=== PATIENT | female | born 1985 | race Caucasian/White ===

== ENCOUNTER → 2018-03-13 14:00 | Outpatient (CLI) | payer MEDICAID, SELFPAY ==
[2018-03-19 14:35] LABS: HPV APTIMA, High Risk Positive (Negative)
== END ==
PROVIDERS: Visit Provider Obstetrics & Gynecology
DX: Z12.4 Encounter for screening for malignant neoplasm of cervix (principal)
CPT/HCPCS: 88175; G0145

== ENCOUNTER → 2018-04-02 17:08 | Outpatient (CLI) | payer MEDICAID, SELFPAY ==
--- NOTE | 2018-04-02 | IMM_PTH ---
PATIENT: LEWIS AVILA LOC: [facility] U#:[id number] AGE/SX: 40/F ROOM: RE04/02/[address]: Dr. Cassidy Dow MD : 1985 BED: DIS: SPEC #: [id number] RECD: 04/06/18 10:15 STATUS: MEGHA RELis #: [id number] SIM: 04/02/18 00:[address]: Cassidy Zhao DEPT: IMMUNOHISTOCHEMISTRY RECD BY: Fang Gunn Tissues: A - Uterine cervix, NOS B - Uterine cervix, NOS Procedures: P53 (initial) p16 (initial) KI-67 (add) PHYSICIAN & [place] [address] SPECIMEN INFORMATION: Tissue Source: A ? Cervical biopsy at 5 o?clock, B ? Cervical biopsy at 10 o?clock Clinical Info: ASCUS, positive HPV Specimen Number: [id number] A & B CPT code: 21959 x2, 98191 x3 METHODOLOGY: Deparaffinized sections of prefer/formalin-fixed tissue or PAP/DQ stained slides are incubated with monoclonal/polyclonal antibodies/oligonucleotide probes. Localization is made via biotin free immunoperoxidase method. Appropriate controls are performed and reacted as expected. Results on target cell population are indicated in the following table: RESULTS: ANTIBODY / CLONE RESULT Block A P16 (E6H4) negative * Ki-67 (30-9) negative Block B P16 (E6H4) negative * Ki-67 (30-9) negative P53 (DO-7) negative *?Endocervical epithelium shows positive staining. These tests were developed and their performance characteristics determined by [facility]. They may not have been cleared or approved by the U.S. Food and Drug Administration. The FDA has determined that such clearance or approval is not necessary. INTERPRETATION: A. Cervix, 5 o?clock, biopsy: Focal changes suggestive for HPV cytopathic effects. B. Cervix, 10 o?clock, biopsy: Focal changes consistent with HPV cytopathic effects. SJ:cyndee 04/07/18 Case has been reviewed in consultation with Dr. Fuentes who concurs with the above diagnosis. IDC:AM
--- NOTE | 2018-04-02 | CER_PTH ---
PATIENT: LEWIS AVILA [facility] U[facility][id number] AGE/SX: 40/F ROOM: RE04/02/[address]: Dr. Cassidy Dow MD : 1985 BED: DIS: SPEC #: [id number] RECD: 04/02/18 17:04 STATUS: MEGHA YESI #: [id number] SIM: 04/02/18 00:[address]: Cassidy Zhao DEPT: SURGICAL PATHOLOGY RECD BY: Aleksandar Acosta ENTERED: 04/03/18 07:50 SP TYPE: CERV OTHR DR: Dr. Don Gotti MD Tissues: A - Uterine cervix, NOS B - Uterine cervix, NOS C - Uterine cervix, NOS D - Endocervical Procedures: Surgery Specimen Level IV HEADER OPERATION: Colposcopy PRE-OP DIAGNOSIS: ASCUS, positive HPV pap 03/13/18, LMP IUD TISSUE SUBMITTED: A ? Cervical biopsy 5 o?clock, B - Cervical biopsy 10 o?clock, C - Cervical biopsy 1?o?clock, D - ECC MICROSCOPIC DIAGNOSIS A. Cervix, 5 o?clock, biopsy: Focal changes suggestive of HPV cytopathic effects. Chronic inflammation. See comment. B. Cervix, 10 o?clock, biopsy: Focal changes consistent with HPV cytopathic effects. Focal glandular atypia, favor reactive. Acute and chronic inflammation. See comment. C. Cervix, 1 o?clock, biopsy: A few desquamative benign ecto- and endocervical epithelial cells and mucous, negative for dysplasia. D. ECC: Scant benign endocervical epithelium and mucous, no pathologic diagnosis. SJ:cyndee 04/06/18 COMMENT A & B. Results of immunohistochemistry ([id number]) for surrogate HPV marker (p16) will be reported separately. Case has been reviewed in consultation with Dr. Fuentes who concurs with the above diagnosis. IDC:AM MICROSCOPIC DESCRIPTION Slides are reviewed. GROSS DESCRIPTION A - Received in fixative is one container labeled with the patient's name and designated 5 o'clock. The specimen consists of multiple minute fragments of light mantilla soft tissue that in aggregate measure 0.2 x 0.1 x <0.1 cm. The specimen is totally submitted in one cassette. B - Received in fixative is one container labeled with the patient's name and designated 10 o'clock. The specimen consists of one irregular fragment of light mantilla soft tissue that measures 0.2 x 0.2 x 0.1 cm. The specimen is totally submitted in one cassette. C - Received in fixative is one container labeled with the patient's name and designated 1 o'clock. The specimen consists of one irregular fragment of light mantilla soft tissue that measures 0.1 x 0.1 x 0.1 cm. The specimen is totally submitted in one cassette. D - Received in fixative is one container labeled with the patient's name and designated ECC. The specimen consists of multiple minute fragments of light mantilla soft tissue that in aggregate measure 0.5 x 0.2 x <0.1 cm. The specimen is filtered and totally submitted in one cassette. / AM:cyndee 04/03/18 TC:5 CPT: 03712 x4
== END ==
PROVIDERS: Visit Provider Obstetrics & Gynecology
DX: R87.610 Atypical squamous cells of undetermined significance on cytologic smear of cervix (ASC-US) (principal); R87.810 Cervical high risk human papillomavirus (HPV) DNA test positive
CPT/HCPCS: 88305; 88341; 88342

== ENCOUNTER 2018-04-23 08:21 | Emergency (ER) | payer MEDICAID, SELFPAY ==
[2018-04-23 08:23] VITALS: BP 145/81; PULSE 82; RESP 17; TEMP 36.4; O2SAT 98; BMI 23.1
--- NOTE | 2018-04-23 09:07 | CT_ITS ---
STUDY: CT ABDOMEN AND PELVIS WITH CONTRAST REASON FOR EXAM: Female, 33 years old. Abdominal pain with nausea vomiting and diarrhea. RADIATION DOSAGE (If Supplied By Facility): CTDIvol = ( 11.08 ) mGy, DLP = ( 574.82 ) mGycm TECHNIQUE: Transaxial images were obtained from the dome of the diaphragm to the symphysis pubis without oral contrast. 100 ml of Isovue 300 contrast was administered. Sagittal and coronal images were reconstructed. Individualized dose optimization techniques were used for this CT. COMPARISON: None. FINDINGS: The visualized lung bases are unremarkable. The visualized portions of the heart are within normal limits. Normal liver. The patient is status post cholecystectomy. Normal spleen. Normal pancreas. Normal bilateral adrenal glands. Normal right kidney. Normal left kidney. There is a small hiatal hernia. Normal small intestine. Normal colon. The appendix is visualized and appears normal. Normal abdominal aorta. Normal inferior vena cava. Normal retroperitoneum. Normal urinary bladder. IUD is seen within the uterus. The uterus is retroverted. Minimal amount of free fluid in the cul-de-sac. Follicles are seen in the right ovary. Normal abdominal wall. Normal osseous structures. CT/Abdomen/Pelvis W IV Cont ONLY IMPRESSION: Minimal amount of free fluid is seen in the cul-de-sac. Follicles are seen in the right ovary. Electronically Signed: Darian Vallejo MD at 10:56 EDT Tel [phone], Service support ,
[2018-04-23] MEDS: Ondansetron 4 MG/2 ML Vial IV (09:14)
[2018-04-23 09:21] LABS: Mucous, Urine 0 SEEN /hpf (<or=2+); Red Blood Cells-Urine 0 SEEN /hpf (0-5)
[2018-04-23 09:23] LABS: Color, Urine Yellow (Yellow); Glucose, Dipstick Normal (Normal); Ketone-Dipstick Negative (Negative); Leukocyte Esterase-Dipstick 25 /ul (Negative); Nitrite-Dipstick Negative (Negative); Occult Blood-Urine Negative /ul (Negative); Protein-Dipstick Negative (Negative); Urine Bilirubin Dipstick Negative (Negative); Urine Clarity Clear (Clear); Urine Urobilinogen Normal (Normal)
[2018-04-23 09:26] LABS: Absolute Lymphocyte Count 1.26 X10^3/ul (0.83-4.51); Absolute Neutrophil Count 8.4 X10^3/uL (2.0-7.7); Basophil# 0.01 X10^3/uL; Basophil% 0.1 % (0-1); Eosinophil# 0.17 X10^3/uL; Eosinophils% 1.6 % (0-5); Hemoglobin 14.1 g/dl (12.0-15.0); Lymphocyte # 1.26 X10^3/ul (4.0); Lymphocyte % 12.1 % (19-41); Mean Corp Hgb Conc 32.8 g/gl (32-36); Mean Corpuscular Hgb 27.9 pg (27.0-32.0); Mean Platelet Vol. 9.2 fl (6.2-12.0); Monocyte# 0.56 X10^3/uL; Monocyte% 5.4 % (0-10); Neutrophil # 8.37 X10^3/uL (2.7-7.7); Neutrophil % 80.4 % (47-70); Platelet Count 178 K/mm3 (150-450); RBC Distribution Width CV 13.7 % (11.6-14.6); Red Blood Count 5.06 M/mm3 (4.2-5.4); White Blood Count 10.4 K/mm3 (4.4-11.0)
[2018-04-23 09:30] LABS: Bacteria RARE /hpf (None Seen); Squamous Epithelial Cells - UA 5-10 SEEN /hpf (5-10); White Blood Cells 0-5 SEEN /hpf (0-5)
[2018-04-23 09:36] LABS: POSITIVE COUNT NO; POSITIVE DIFFERENTIAL NO; POSITIVE MORPHOLOGY NO
[2018-04-23 09:40] LABS: ALB/GLOB Ratio 1.1 RATIO (0.9-2.4); AST(SGOT) 17 U/L (15-37); Alanine Aminotransfer ALT/SGPT 22 U/L (13-56); Alkaline Phosphatase 59 U/L (45-117); Anion Gap 6 (5-15); BUN 9 mg/dL (7-18); BUN/Creat Ratio 11.5 RATIO (10-20); Calcium,Total 8.7 mg/dL (8.5-10.1); Chloride 108 mmol/L (98-107); Creatinine, Serum 0.78 mg/dL (0.55-1.02); EST Glomerular Filtration Rate 91 mL/min (>60); Est Glom Filt Rate - Afr Amer 110 mL/min (>60); Estimated Creatinine Clearance 97.83 ml/min; Globulin 3.5 g/dL (2.2-4.2); Glucose 100 mg/dL (74-106); Lipase 154 U/L (73-393); Potassium 3.9 mmol/L (3.5-5.1); Protein, Total 7.5 g/dL (6.4-8.2); Sodium Level 140 mmol/L (136-145)
[2018-04-23 09:49] LABS: Pregnancy, Serum, hCG Quali. NEGATIVE Negative (0-9 Nonpreg)
[2018-04-23] MEDS: Dicyclomine 10 MG Capsule 20 MG PO (09:51)
--- NOTE | 2018-04-23 11:31 | ED.DCSUM_ITS ---
- ER Visit Summary Date of Service: 04/23/18 Chief Complaint: Abdominal pain History of Present Illness: The patient is a 33 F who woke this morning and had abdominal pain left upper quadrant and around 0400 hours. She continued not feel very well eventually had vomiting and diarrhea. She last vomited around 0700 hours and diarrhea about the same time. No fevers. She notes the pain is intermittent in the left upper quadrant. Physical Examination: Afebrile vital signs are stable Gen: Well-nourished well-developed Head: Normocephalic atraumatic Eyes: Perrl EOMI ENT: TMs clear no rhinorrhea moist mucous membranes Neck: Supple no lymphadenopathy no JVD nontender CVS: Regular rate rhythm no murmurs normal S1-S2 Respiratory: No distress clear to auscultation bilaterally chest nontender Abdomen: Soft mild tenderness to palpation left upper quadrant nondistended normal bowel sounds no masses Back: Nontender Extremity: Nontender no edema Skin: Normal color no rash Neuro: alert orientated ?3 CN II-XII intact normal strength sensation reflexes gait cerebellar Psych: Normal affect normal mood Test Results: CBC CMP urinalysis test were negative. CT the pelvis did not demonstrate anything acute other than a small amount of free fluid in the pelvis. Emergency Department Course and Treatment: Patient was given Zofran and Bentyl. She will be discharged home with instructions for the same as well as Imodium as needed. Return if worsening or concerns Impression: 1. Acute abdominal pain 2. Gastroenteritis This note was generated with [employer] dictation software. It may contain incorrect words, spelling, and punctuation that were not noted in review of the chart prior to signing ED Disposition - Plan for ED Patient: Disposition: Home or Assisted Living Chief Complaint: Abd Pain Instructions: ED Gastroenteritis Viral Prescriptions: Ondansetron [Zofran Odt] 4 mg PO Q8H PRN PRN #10 tab PRN Reason: Nausea Dicyclomine HCl [Bentyl] 20 mg PO TIDAC PRN #20 cap PRN Reason: abdominal pain Referrals: Don Gotti MD [Primary Care Provider] - 3-5 Days if not improving
[2018-04-23 12:17] VITALS: BP 138/68; PULSE 84; RESP 18; O2SAT 98
== END 2018-04-23 12:19 | disposition home or self-care (01) ==
PROVIDERS: Emergency Provider Emergency Medicine; Family Provider Family Medicine; PCP Family Medicine
DX: K52.9 Noninfective gastroenteritis and colitis, unspecified (principal); R10.12 Left upper quadrant pain
CPT/HCPCS: 74177; 80053; 81001; 83690; 84703; 85025; 96374; 99283; Q9967; A4216; J2405

== ENCOUNTER 2018-06-06 12:55 | Emergency (ER) | payer MEDICAID, SELFPAY ==
[2018-06-06 12:56] VITALS: BP 123/71; PULSE 101; RESP 18; TEMP 37; O2SAT 98; BMI 22.9
[2018-06-06] MEDS: Tetracaine 0.5% Ophthalmic Bottle 1 DRP LEFT EYE (13:52)
--- NOTE | 2018-06-06 13:58 | ED.VISSUMM ---
- ER Visit Summary Date of Service: 06/06/18 Chief Complaint: [Foreign body sensation left eye] History of Present Illness: The patient is a 33 F [presents the emergency department complaint of foreign body sensation to her left eye that she noticed this morning upon awakening. Patient states that her eye was tearing and she has a sensation like her something in her eye. Patient noticed a dark speck on the left cornea. She denies any trauma to her eye. She does not wear contacts. She denies any visual changes. Patient has had tearing.] Physical Examination: [HEENT-PERRLA, EOMI. Cranial nerves II through XII grossly intact. TMs clear. Mucous membranes moist. No adenopathy. Left eye-patient had tetracaine instilled in left eye. I was able to visualize a small punctate foreign body to the 3 o'clock position of the left cornea. Cardiovascular-regular rate and rhythm without murmur or ectopy Lungs-clear to auscultation, chest wall stable without crepitus or subcu emphysema Abdomen-normoactive bowel sounds, soft, nontender, no rebound or rigidity, no peritoneal signs. Extremities-intact ?4, normal range of motion, normal pulses, atraumatic] Test Results: [None indicated] Emergency Department Course and Treatment: [After instillation of tetracaine in the left eye using a moistened Q-tip I was able to easily remove the foreign body without difficulty. After removal I reevaluated the cornea and there is no remnant foreign body noted.] Treatment Plan: [Patient was given gentamicin ophthalmic drops] Disposition: [Discharged home in stable condition. Patient will be referred to ophthalmology for follow-up in 3-5 days] Impression: [Foreign body left cornea-removed] This note was generated with [employer] dictation software. It may contain incorrect words, spelling, and punctuation that were not noted in review of the chart prior to signing ED Disposition - Plan for ED Patient: Chief Complaint: Eye Problem Referrals: Don Gotti MD [Primary Care Provider] -
--- NOTE | 2018-06-06 14:00 | ED.DEP ---
ED Disposition - Plan for ED Patient: Chief Complaint: Eye Problem Instructions: ED Foreign Body Cornea Referrals: Don Gotti MD [Primary Care Provider] - Pete Orellana MD [STAFF PHYSICIAN] - 1-2 Days if not improving
[2018-06-06] MEDS: Gentamicin Sulfate 1 OPTH.BTL 2 DRP LEFT EYE (14:36)
== END 2018-06-06 14:44 | disposition home or self-care (01) ==
PROVIDERS: Emergency Provider Emergency Medicine; Family Provider Family Medicine; PCP Family Medicine
DX: T15.02XA Foreign body in cornea, left eye, initial encounter (principal)
CPT/HCPCS: 99282

== ENCOUNTER → 2019-06-28 | Outpatient (CLI) | payer MEDICAID, SELFPAY ==
[2019-07-27 15:26] LABS: HPV Reflexed? NOT INDICATED
== END | disposition home or self-care (01) ==
LOC: LABSPEC 17:01
PROVIDERS: Family Provider Family Medicine; PCP Family Medicine; Referring Provider Obstetrics & Gynecology; Visit Provider Obstetrics & Gynecology
DX: Z12.4 Encounter for screening for malignant neoplasm of cervix (principal)
CPT/HCPCS: 87624; 88175; G0145

== ENCOUNTER → 2019-06-29 | Outpatient (CLI) | payer MEDICAID, SELFPAY ==
[2019-06-29 11:43] LABS: Estradiol 113.3 pg/mL; Free T3 3.2 pg/mL (2.18-3.98); T4 Free Direct 1.06 ng/dL (0.76-1.46); Thyroid Stim Hormone (TSH) 1.62 uIU/mL (0.358-3.74)
[2019-07-05 14:44] LABS: Sex Hormone-binding Globulin 67.1
[2019-07-05 14:45] LABS: DHEA Sulfate 129.5
== END | disposition home or self-care (01) ==
LOC: WOBLAB 09:26
PROVIDERS: Visit Provider Obstetrics & Gynecology
DX: L65.9 Nonscarring hair loss, unspecified (principal); N92.6 Irregular menstruation, unspecified; R53.83 Other fatigue; Z13.89 Encounter for screening for other disorder
CPT/HCPCS: 36415; 82157; 82533; 82627; 82670; 84270; 84403; 84439; 84443; 84481; 82626

== ENCOUNTER → 2019-09-06 | Outpatient (CLI) | payer MEDICAID, SELFPAY ==
[2019-09-06 11:02] LABS: Estradiol 68.4 pg/mL
[2019-09-07 05:06] LABS: DHEA Sulfate 148.4 ug/dL (84.8-378.0)
[2019-09-07 09:58] LABS: Sex Hormone-binding Globulin 52.2 nmol/L (24.6-122.0)
== END | disposition home or self-care (01) ==
LOC: WOBLAB 09:32
PROVIDERS: Visit Provider Obstetrics & Gynecology
DX: L65.9 Nonscarring hair loss, unspecified (principal); L70.8 Other acne; R53.83 Other fatigue
CPT/HCPCS: 36415; 82306; 82533; 82627; 82670; 84270; 84403; 82626

== ENCOUNTER → 2019-09-17 08:52 | Outpatient (CLI) | payer MEDICAID, SELFPAY ==
[2019-09-17 09:58] LABS: Absolute Lymphocyte Count 1.59 X10^3/uL (0.83-4.51); Absolute Neutrophil Count 4.4 X10^3/uL (2.0-7.7); Basophil# 0.02 X10^3/uL; Basophil% 0.3 % (0-1); Eosinophil# 0.21 X10^3/uL; Eosinophils% 3.2 % (0-5); Hematocrit 43.4 % (37-47); Hemoglobin 14.1 g/dL (12.0-15.0); Lymphocyte # 1.59 X10^3/ul (4.0); Lymphocyte % 23.9 % (19-41); Mean Corp Hgb Conc 32.5 g/dL (32-36); Mean Corpuscular Volume 86.1 fL (81-99); Mean Platelet Vol. 9.6 fl (6.2-12.0); Monocyte# 0.35 X10^3/uL; Monocyte% 5.3 % (0-10); NRBC Flagged by Analyzer 0 % (0-5); Neutrophil # 4.44 X10^3/uL (2.7-7.7); Neutrophil % 66.8 % (47-70); Platelet Count 176 K/mm3 (150-450); RBC Distribution Width CV 13.2 % (11.6-14.6); Red Blood Count 5.04 M/mm3 (4.2-5.4); White Blood Count 6.6 K/mm3 (4.4-11.0)
[2019-09-17 10:39] LABS: Anion Gap 8 (5-15); BUN 13 mg/dL (7-18); BUN/Creat Ratio 16.5 RATIO (10-20); Calcium,Total 8.8 mg/dL (8.5-10.1); Chloride 108 mmol/L (98-107); Creatinine, Serum 0.79 mg/dL (0.55-1.02); EST Glomerular Filtration Rate 89 mL/min (>60); Est Glom Filt Rate - Afr Amer 108 mL/min (>60); Glucose 97 mg/dL (74-106); Potassium 3.5 mmol/L (3.5-5.1); Sodium Level 139 mmol/L (136-145)
== END ==
PROVIDERS: Family Provider Family Medicine; PCP Family Medicine; Referring Provider Family Medicine; Visit Provider Family Medicine
DX: R00.2 Palpitations (principal)
CPT/HCPCS: 36415; 80048; 85025

== ENCOUNTER → 2019-10-30 08:37 | Outpatient (CLI) | payer MEDICAID, SELFPAY ==
[2019-10-30 10:11] LABS: Estradiol 86.6 pg/mL
[2019-10-31 07:06] LABS: DHEA Sulfate 262.1 ug/dL (84.8-378.0)
[2019-11-01 09:54] LABS: Vitamin D,25 Hydroxy 31.1 ng/mL (29.95-100.01)
== END ==
PROVIDERS: Family Provider Family Medicine; PCP Family Medicine; Referring Provider Obstetrics & Gynecology; Visit Provider Obstetrics & Gynecology
DX: L70.8 Other acne (principal); L65.9 Nonscarring hair loss, unspecified; R53.83 Other fatigue
CPT/HCPCS: 36415; 82306; 82533; 82627; 82670; 84270; 84403; 82626

== ENCOUNTER → 2020-08-15 14:27 | Outpatient (CLI) | payer MEDICAID, SELFPAY ==
[2020-08-18 03:06] LABS: Chlamydia By Nucleic Acid AMP Negative (Negative)
[2020-08-18 06:34] LABS: Gonococcus By Nucleic Acid AMP Negative (Negative)
[2020-08-23 09:13] LABS: HPV APTIMA, High Risk Positive (Negative)
== END ==
PROVIDERS: PCP Family Medicine; Visit Provider Obstetrics & Gynecology
DX: Z12.4 Encounter for screening for malignant neoplasm of cervix (principal); Z11.3 Encounter for screening for infections with a predominantly sexual mode of transmission
CPT/HCPCS: 87491; 87591; 87624; 88175; G0145

== ENCOUNTER → 2020-09-05 13:17 | Outpatient (CLI) | payer MEDICAID, SELFPAY ==
--- NOTE | 2020-09-05 | IMM_PTH ---
PATIENT: LEWIS AVILA LOC: [facility] U#:[id number] AGE/SX: 40/F ROOM: RE09/05/[address]: Dr. Cassidy Dow MD : 1985 BED: DIS: SPEC #: [id number] RECD: 09/07/20 13:04 STATUS: MEGHA REQ #: [id number] SIM: 09/05/20 00:[address]: Cassidy Zhao DEPT: IMMUNOHISTOCHEMISTRY RECD BY: Fang Gunn ENTERED: 09/07/20 13:04 SP TYPE: IMMUNO OTHR DR: Dr. Don Gotti MD Tissues: A - Uterine cervix, NOS Procedures: p16 (initial) KI-67 (add) PHYSICIAN & INSTITUTION [place] [id number] SPECIMEN INFORMATION: Tissue Source: A - Cervix at 8 o'clock, biopsy Clinical Info: Atypical glandular cells, cervical HR HPV Specimen Number: [id number] CPT code: 81674, 46026 METHODOLOGY: Deparaffinized sections of prefer/formalin-fixed tissue or PAP/DQ stained slides are incubated with monoclonal/polyclonal antibodies/oligonucleotide probes. Localization is made via biotin free immunoperoxidase method. Appropriate controls are performed and reacted as expected. Results on target cell population are indicated in the following table: RESULTS: ANTIBODY / CLONE RESULT Block A P16 (E6H4) positive, rare Ki-67 (30-9) negative, low These tests were developed and their performance characteristics determined by [facility]. They may not have been cleared or approved by the U.S. Food and Drug Administration. The FDA has determined that such clearance or approval is not necessary. The above immunohistochemical/dualISH markers are ordered and reviewed by the Pathologist. INTERPRETATION: A. Cervix at 8 o'clock, biopsy: Focal HPV change suspected. AM:cyndee 09/08/20
--- NOTE | 2020-09-05 | CER_PTH ---
PATIENT: LEWIS AVILA LOC: [facility]#:[id number] AGE/SX: 40/F ROOM: RE09/05/[address]: Dr. Cassidy Dow MD : 1985 BED: DIS: SPEC #: [id number] RECD: 09/05/20 13:43 STATUS: MEGHA RELis #: [id number] SIM: 09/05/20 00:[address]: Cassidy Zhao DEPT: SURGICAL PATHOLOGY RECD BY: Saba Peterson ENTERED: 09/06/20 08:49 SP TYPE: CERV OTHR DR: Dr. Don Gotti MD Tissues: A - Uterine cervix, NOS B - Endocervical Procedures: Surgery Specimen Level IV HEADER OPERATION: Colposcopy, ECC PRE-OP DIAGNOSIS: Atypical glandular cells; cervical HR HPV TISSUE SUBMITTED: A - Cervical biopsy 8 o'clock, B - ECC MICROSCOPIC DIAGNOSIS A. Cervix, biopsy: Focal HPV change suspected. Squamous metaplasia and chronic inflammation. See comment. B. Endocervix, curettings: Strips of benign superficial endocervix. No evidence of dysplasia. AM:cyndee 09/07/20 COMMENT A. Results from immunohistochemistry ([id number]) for surrogate HPV marker (p16) will be reported separately. MICROSCOPIC DESCRIPTION Slides are reviewed. GROSS DESCRIPTION A - Received in fixative is one container labeled with the patient's name and designated biopsy 8 o'clock. The specimen consists of one irregular fragment of light mantilla soft tissue that measures 0.5 x 0.3 x 0.1 cm. The specimen is totally submitted in one cassette. B - Received in fixative is one container labeled with the patient's name and designated ECC. The specimen consists of multiple minute fragments of light mantilla soft tissue that in aggregate measure 2 x 1 x <0.1 cm. The specimen is totally submitted in one cassette. / AM:cyndee 09/06/20 TC:5 CPT: 95141 x2
== END ==
PROVIDERS: PCP Family Medicine; Visit Provider Obstetrics & Gynecology
DX: R87.810 Cervical high risk human papillomavirus (HPV) DNA test positive (principal)
CPT/HCPCS: 88305; 88341; 88342

== ENCOUNTER → 2020-12-18 14:40 | Outpatient (CLI) | payer MEDICAID, SELFPAY ==
[2020-12-19 09:24] LABS: Hepatitis B Surface Antibody Reactive; Hepatitis B Surface Antigen Non-Reactive (Nonreactive)
[2020-12-20 05:06] LABS: Hepatitis B Core Ab Total Negative (Negative)
[2020-12-20 12:52] LABS: Hepatitis B Core AB IgM Negative (Negative)
== END ==
PROVIDERS: PCP Family Medicine; Referring Provider Family Medicine; Visit Provider Nurse Practitioner Family
DX: Z00.00 Encounter for general adult medical examination without abnormal findings (principal)
CPT/HCPCS: 36415; 86704; 86705; 86706; 87340

== ENCOUNTER → 2021-01-10 11:18 | Outpatient (CLI) | payer MEDICAID, SELFPAY ==
--- NOTE | 2021-01-10 11:26 | RAD_ITS ---
STUDY: X-RAY - RIGHT SHOULDER REASON FOR EXAM: Right shoulder pain, limited range of motion. TECHNIQUE: 3 view(s) of the shoulder. COMPARISON: None. FINDINGS: Normal glenohumeral articulation. Normal acromioclavicular joint. Normal acromion. Normal humeral head and visualized proximal humerus. There is a small focus of calcific tendinitis on the AP view. Normal visualized pulmonary apex. RAD/Shoulder min 2 Views IMPRESSION: Small focus of calcific tendinitis. Electronically Signed: Ascencion Calles MD at 11:56 EDT Tel , Service support ,
== END ==
PROVIDERS: PCP Family Medicine; Referring Provider Family Medicine; Visit Provider Family Medicine
DX: M25.511 Pain in right shoulder (principal)
CPT/HCPCS: 73030

== ENCOUNTER → 2021-01-10 13:04 | Outpatient (CLI) | payer MEDICAID, SELFPAY ==
--- NOTE | 2021-01-10 13:10 | VDUE_ITS ---
Reason For Study: right shoulder pain Right Proximal Right jugular vein is spontaneous, widely patent, phasic, with no intraluminal echogenicity noted. Right subclavian vein is spontaneous, widely patent, phasic, with no intraluminal echogenicity noted. Right Lower Arm Right radial vein is compressible. Right ulnar vein is compressible. Right Arm Right axillary vein is spontaneous, patent, phasic, competent, compressible and demonstrates augmentation. Right brachial vein is compressible. Right cephalic vein is compressible. Right basilic vein is compressible. Interpretation Summary Deep veins of the right upper extremity are patent and compressible segmentally. There is no evidence of deep vein thrombosis. The superficial veins of the right upper extremity, the basilic and cephalic veins, are patent and compressible. There is no evidence of right upper extremity superficial thrombophlebitis involving the veins imaged. Ordering Physician: Don Gotti Referring Physician: Don Gotti Performed By: Eva Ramires, MAGGY, RVT ?
== END ==
PROVIDERS: PCP Family Medicine; Referring Provider Family Medicine; Visit Provider Family Medicine
DX: M25.511 Pain in right shoulder (principal)
CPT/HCPCS: 73030; 93971

== ENCOUNTER 2021-01-11 03:30 | Emergency (ER) | payer MEDICAID, SELFPAY ==
[2021-01-11 03:30] VITALS: BP 143/97; PULSE 82; RESP 16; TEMP 37; O2SAT 99; BMI 26.6
--- NOTE | 2021-01-11 03:48 | ED.VIS.GEN ---
History of Present Illness Chief Complaint: Upper Extremity Injury Informant: Patient Narrative: 36-year-old female presents with right shoulder pain. States been present for 1 week. Denies any trauma. States it awoke her from sleep. States that she was seen by her primary care physician yesterday with a negative x-ray. He diagnosed her with tendinitis and gave her Paradise. Patient does not like taking narcotic pain medication. Describes the pain is sharp and worse with movement. Denies any fever or chills. Denies any numbness or tingling. Past Medical History - Allergies and Home Meds Allergies/Adverse Reactions: Allergies adhesive Allergy (Verified 01/11/21 03:34) Rash BANDAIDS CAUSE A RASH and skin peeling Primary Care Physician: Don Gotti MD [Primary Care Provider] - Prior records reviewed: Yes Past Medical History: None Surgical History: no surgical history Lives: With Family Smoking Status: Never smoker Alcohol: None Drugs: None Review of Systems General: Denies: Chills, Fever, Sweats Eyes: Denies: Visual changes - bilaterally, Diplopia ENT: Denies: Rhinorrhea, Sore throat Cardiovascular: Denies: Chest pain, Palpitations Respiratory: Denies: Dyspnea, Cough, Dyspnea on exertion Gastrointestinal: Denies: Abdominal pain, Nausea, Vomiting, Diarrhea, Melena, Hematochezia Genitourinary: Denies: Dysuria, Hematuria, Frequency Musculoskeletal: Reports: Arthralgias. Denies: Back pain, Extremity Pain Skin: Denies: Rash, Wounds Neurological: Denies: Headache, Weakness, Numbness Physical Exam Vital Signs/Narrative: Vital Signs Temp Pulse Resp BP Pulse Ox 01/11/21 03:30 98.6 F 82 16 143/97 H 99 Inital Vital Signs reviewed: Yes General: Well nourished, Well developed, No Acute Distress Head: Normocephalic, Atraumatic Eyes: Perrl, EOMI ENT: Moist mucous membranes, No rhinorrhea Neck: Supple, Nontender Cardiovascular: Regular rate, Regular rhythm, No murmurs Respiratory: No distress, CTA bilaterally, Chest nontender Abdomen: Soft, Nontender, Nondistended, Normal bowel sounds Back: Nontender, Normal Inspection Extremities: No edema, - - TTP over the deltoid region of the shoulder. Strong and palpable pulses. Sensation intact. No overlying skin changes. Skin: Normal color, No rash Neurological: Alert, Oriented x3, Cranial nerves II-XII grossly intact, Normal Strength, Normal Sensation Psychological: Normal affect, Normal Mood Diagnostic/Tx/Re-eval - Medical Decision Making Llamas appears well and nontoxic. Vital signs within normal limits. I feel patient likely has a bursitis. She will be given an arm sling as well as Medrol Dosepak. Patient be given orthopedic follow-up. Asked to return for new or worsening symptoms. Patient agreeable and stable at time of discharge. Impression: 1. Right shoulder bursitis ED Disposition - Plan for ED Patient: Disposition: Home or Assisted Living Instructions: ED Bursitis Prescriptions: MethylPREDNISolone DosePak [Medrol DosePak] 4 mg PO UD #1 box Prescription Printed Referrals: Don Gotti MD [Primary Care Provider] - 2 Days Larry Anglin MD [STAFF PHYSICIAN] - 3-5 Days if not improving
== END 2021-01-11 04:07 | disposition home or self-care (01) ==
LOC: ED 03:55
PROVIDERS: Emergency Provider Emergency Medicine; PCP Family Medicine
DX: M75.51 Bursitis of right shoulder (principal)
CPT/HCPCS: 99282

== ENCOUNTER → 2021-02-27 16:02 | Outpatient (CLI) | payer MEDICAID, SELFPAY ==
--- NOTE | 2021-02-27 16:00 | PET_ITS ---
EXAMINATION: FDG PET/CT ? Head to Toe INDICATIONS: A 36-year-old female with history of malignant melanoma presenting for restaging examination. COMPARISON EXAMINATION: None available TECHNIQUE: Following the intravenous administration of 13.8 mCi of F-18 deoxyglucose via the left antecubital fossa, multiplanar image acquisitions of the head, neck, chest, abdomen and pelvis, lower extremities to the level of the bilateral feet, obtained at one hour post radiopharmaceutical administration contemporaneously interpreted with the current CT of the head, neck, chest, abdomen and pelvis, lower extremities to the level of the bilateral feet, dated 02/27/21 via coregistration reveal: SERUM GLUCOSE LEVEL: 88 mg/dl. HEIGHT: 66 inches. WEIGHT: 170 lbs. FINDINGS: 1. There is no quantitative scintigraphic evidence of abnormal increased glucose metabolism on meticulous inspection of whole body acquisitions to include all three axis reconstructions. 2. Normal physiologic distribution of the radiopharmaceutical is apparent in the hepatic and splenic parenchyma, both renal units, bladder and visualized intestinal tract. Symmetric glucose metabolism is evident in the occipital, frontal, parietal and temporal lobes of the cerebral cortex, as well as normal visualization of the basal ganglia and cerebellar hemispheres. Prominent tracer concentration is observed in the left ventricular myocardium commensurate with the [place]. Prominent radiopharmaceutical concentration is observed in the lower pelvis-midline perineum most consistent with urethral radiopharmaceutical concentration. Pertinent CT findings are as follows: CHEST: Bilateral subcentimeter axillary soft tissue densities are non-glucose avid. There are no parenchymal densities-nodules defined in the right and left hemithorax with discernible increased FDG concentration. There is atherosclerotic calcification defined in the thoracic aorta without evidence of dilatation-aneurysm formation. ABDOMEN AND PELVIS: Bilateral subcentimeter inguinal soft tissue is ametabolic. Scattered retroperitoneal soft tissue densities reveal no evidence of increased tracer uptake. SKELETAL: There are no well-defined sclerotic-lytic changes manifest on review of the appendicular-axial skeletal structures. There is no evidence of sclerotic, mixed sclerotic-lytic and/or lytic changes noted on review of the skeletal structures manifesting an increase in glucose metabolism. PET/PET/CT Tumor Base -Thigh Subs IMPRESSION: 1. NEGATIVE EXAMINATION. There is no definitive quantitative scintigraphic evidence of recurrent-metastatic/viable neoplasm. Electronic Signature Sergo Gerard D.O. Accurate Quantification of SUVs for this report are calculated using the exclusive [employer]? Technology.??Exclusive [place].S. Patent [employer]? Technology (U.S. Patent No. [id number]). Electronically Signed: Sergo Gerard DO at 9:36 EDT Tel , Service support ,
== END ==
PROVIDERS: PCP Family Medicine; Referring Provider Orthopaedic Surgery; Visit Provider Orthopaedic Surgery
DX: C44.509 Unspecified malignant neoplasm of skin of other part of trunk (principal); D48.0 Neoplasm of uncertain behavior of bone and articular cartilage; Z85.820 Personal history of malignant melanoma of skin
CPT/HCPCS: 78815; A9552

== ENCOUNTER → 2021-06-29 16:09 | Outpatient (CLI) | payer MEDICAID, SELFPAY | PROVIDERS: PCP Family Medicine; Referring Provider Family Medicine; Visit Provider Family Medicine | DX: Z20.822 Contact with and (suspected) exposure to COVID-19 (principal) | CPT/HCPCS: 87635; U0005; U0003 ==

== ENCOUNTER 2022-01-08 17:40 | Outpatient (CLI) | payer MEDICAID, SELFPAY | END 2022-01-08 23:59 | disposition home or self-care (01) | PROVIDERS: PCP Family Medicine; Visit Provider Family Medicine | DX: R05.9 Cough, unspecified (principal) | CPT/HCPCS: 87635; U0003; U0005 ==

== ENCOUNTER 2022-01-11 14:17 | Outpatient (CLI) | payer MEDICAID, SELFPAY ==
[2022-01-22 16:28] LABS: HPV APTIMA, High Risk Positive (Negative)
== END 2022-01-11 23:59 | disposition home or self-care (01) ==
LOC: LABSPEC 14:19
PROVIDERS: PCP Family Medicine; Visit Provider Obstetrics & Gynecology
DX: Z12.4 Encounter for screening for malignant neoplasm of cervix (principal)
CPT/HCPCS: 87624; 88175; G0145

== ENCOUNTER 2022-01-24 11:26 | Outpatient (CLI) | payer MEDICAID, SELFPAY ==
--- NOTE | 2022-01-24 | CER_PTH ---
PATIENT: LEWIS AVILA LOC: [facility] U#:[id number] AGE/SX: 37/F ROOM: RE01/24/[address]: Dr. Cassidy Dow MD : 1985 BED: DIS: 01/24/2022 SPEC #: [id number] RECD: 01/24/22 13:18 STATUS: MEGHA RELis #: [id number] SIM: 01/24/22 00:[address]: Cassidy Zhao DEPT: SURGICAL PATHOLOGY RECD BY: Aleksandar Acosta ENTERED: 01/25/22 10:43 SP TYPE: CERV OTHR DR: Dr. Don Gotti MD Tissues: A - Uterine cervix, NOS B - Uterine cervix, NOS C - Endocervical D - Endometrium, NOS Procedures: Surgery Specimen Level IV HEADER OPERATION: Colposcopy, endometrial biopsy PRE-OP DIAGNOSIS: GERALD pap, favors LGSIL, neoplasia TISSUE SUBMITTED: A ? Cervical biopsy at 8 o?clock, B - Cervical biopsy at 4 o?clock, C ? Endocervical curettings, D ? Endometrial biopsy MICROSCOPIC DIAGNOSIS A. Cervix, 8 o?clock, biopsy: Focal minimal glandular epithelial atypia. Fragments of endocervical mucosa with moderate acute and chronic inflammation. Negative for squamous dysplasia. B. Cervix, 4 o?clock, biopsy: Scant fragments of benign ecto- and endocervical epithelium with focal minimal glandular epithelial atypia. Negative for squamous dysplasia. C. Endocervical curettings: Fragments of benign ecto- and endocervical epithelium with focal minimal glandular epithelial atypia, blood and mucous. Negative for squamous dysplasia. D. Endometrial biopsy: Fragments of weakly proliferative endometrium.e TROY:cyndee 01/28/2022 COMMENT Correlation with clinical findings and appropriate follow up are necessary. Case has been reviewed in consultation with Dr. Fuentes who concurs with the above diagnosis. IDC:AM MICROSCOPIC DESCRIPTION Slides are reviewed. GROSS DESCRIPTION A - Received in fixative is one container labeled with the patient's name and designated cervical biopsy at 8 o'clock. The specimen consists of multiple irregular fragments of light mantilla soft tissue that in aggregate measure 1 x 0.3 x 0.1 cm. The specimen is totally submitted in one cassette. B - Received in fixative is one container labeled with the patient's name and designated cervical biopsy at 4 o?clock. The specimen consists of a scant amount of soft tissue. The specimen is totally submitted for cell block preparation. C - Received in fixative is one container labeled with the patient's name and designated endocervical curettings. The specimen consists of multiple irregular fragments of mantilla mucoid tissue that in aggregate measure 1.5 x 0.5 x 0.1 cm. The specimen is totally submitted in one cassette. D - Received in fixative is one container labeled with the patient's name and designated endometrial biopsy. The specimen consists of multiple fragments of mantilla hemorrhagic soft tissue that in aggregate measure 2.5 x 0.5 x 0.1 cm. The specimen is totally submitted in one cassette. / SJ:rg 01/25/2022 TC:5 CPT: 81333 x4
== END 2022-01-24 23:59 | disposition home or self-care (01) ==
PROVIDERS: PCP Family Medicine; Visit Provider Obstetrics & Gynecology
DX: Z12.4 Encounter for screening for malignant neoplasm of cervix (principal)
CPT/HCPCS: 88305

== ENCOUNTER 2022-02-01 08:56 | Outpatient (CLI) | payer MEDICAID, SELFPAY ==
--- NOTE | 2022-02-01 09:00 | BI_ITS ---
MAMMOGRAPHY - BILATERAL SCREENING REASON FOR EXAM: Female, 37 years old. Routine annual screening examination. PERTINENT HISTORY: Grandmother with breast cancer. TECHNIQUE: Digital bilateral breast von (3D mammographic acquisition) in the CC and MLO projections. 2-D mediolateral oblique (MLO) and craniocaudad (CC) views of both breasts were obtained. CAD: Full Field Digital Mammography with Computer Added Detection was performed. COMPARISON: Comparison is made with prior study dated 01/23/2017. FINDINGS: Breast Composition: The breasts are extremely dense, which lowers the sensitivity of mammography. There are no dominant masses or suspicious calcifications. No other significant abnormalities are identified. There has been no significant change since the prior study. BI/SCRN MAMM (CAD)W/VON BILAT IMPRESSION: Stable bilateral screening mammogram. Yearly follow-up mammogram recommended. (A) ASSESSMENT CATEGORY: BIRADS Category 1: Negative. A letter regarding these results will be sent to the patient by the facility within 30 days. Approximately 10% of breast cancers are not detected by mammography. A normal mammogram should not delay biopsy of a clinically suspicious abnormality. [id number] Electronically Signed: Darian Vallejo MD at 10:39 EDT ,
== END 2022-02-01 23:59 | disposition home or self-care (01) ==
LOC: OPBI 08:59
PROVIDERS: PCP Family Medicine; Referring Provider Obstetrics & Gynecology; Visit Provider Obstetrics & Gynecology
DX: Z12.31 Encounter for screening mammogram for malignant neoplasm of breast (principal)
CPT/HCPCS: 77063; 77067

== ENCOUNTER 2022-03-07 05:47 | Day surgery (SDC) | payer MEDICAID, SELFPAY ==
[2022-03-01 16:53] LABS: Hematocrit 42.2 % (37-47); Hemoglobin 13.5 g/dL (12.0-15.0); Mean Corpuscular Hgb 27.2 pg (27.0-32.0); Mean Corpuscular Volume 85.1 fL (81-99); Mean Platelet Vol. 9.8 fl (6.2-12.0); Platelet Count 239 K/mm3 (150-450); RBC Distribution Width CV 13.8 % (11.6-14.6); RBC Distribution Width SD 42.9 fl (35.1-43.9); Red Blood Count 4.96 M/mm3 (4.2-5.4); White Blood Count 8.6 K/mm3 (4.4-11.0)
[2022-03-01 16:59] LABS: Prothrombin Time (Protime)PT. 12.5 SECONDS (11.7-14.9)
[2022-03-01 17:00] LABS: Partial Thromboplast Time 27.6 Seconds (24.1-36.2)
[2022-03-07] VITALS (11 sets, daily range): BP systolic 104–126; BP diastolic 77–93; PULSE 70–103; RESP 16; TEMP 37–37.3; O2SAT 96–100; BMI 28.0
--- NOTE | 2022-03-07 05:30 | PCM.HP.BLA ---
History and Physical Date of Admission: 03/07/22 Surgical History and Physical Date: 03/01/2022 Name: ALINA AVILA Age: 37 Date of : 1985 Alina Avila, a 37 year old female 1 0 0 0 1, presents for Cold knife conization, ecc, dlation and curettage on March 07, 2022 at . -- Scheduled for cold knife cone with fractional D and C. hx HGSIL with atypical glandular cells - favoring neoplasia with cervical biopsy showing glandular atypia on bx and ECC. shm MEDICATIONS HISTORY: Current medications prescribed by our practice are: 1. Kari 0.35 mg tablet, 1 tab po daily 2. ibuprofen 600 mg tablet, po TID PRN Patient is also takin. Lexapro 5 mg tablet, One pill by mouth once a day 2. [facility] 1 mg/mL injection kit, as needed for bee allergy ALLERGIES: NKDA, bandaides and tape, Peels skin underneath, Adhesive, Skin irritation, bee venom protein (honey bee) and Anaphylaxis Infections - Bronchitis, Chicken pox and Pneumonia Illnesses - anxiety and depression Accidents - None Hospitalizations - Childbirth and see surgery Age 15y melanoma, full body checks q6 mo. and BEE STING ALLERGY; Review of Systems: GENERAL - Denies fever, or chills SKIN - Denies skin changes EYES - Denies visual changes EARS - Denies difficulty hearing NOSE - Denies nasal congestion or bleeding MOUTH - Denies sore throat or difficulty swallowing NECK - Denies pain or swelling RESPIRATORY - Denies shortness of breath or wheezing CARDIOVASCULAR - Denies palpitations or chest pain GASTROINTESTINAL - Denies nausea, vomiting, diarrhea, constipation GENITOURINARY - Denies dysuria, frequency of urination, incontinence of urine MUSCULOSKELETAL - Denies joint or muscle pain NEUROLOGICAL - Denies localized numbness or weakness PSYCHIATRIC - Denies depression or anxiety ENDOCRINE - Denies heat or cold intolerance, weight loss or gain HEMATO-IMMUNOLOGIC - Denies excesive bleeding with cuts SOCIAL HISTORY: Alcohol Use - RARELY Smoking - denies smoking Diet - moderate, balanced diet and caffeine > 2 drinks per day Lifestyle - single Exercise - minimal Seat Belt Use - always Employer - [employer] 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 Brother: Anxiety and Depression. Maternal Grandmother: removal basal cell carcinoma, uterine ca, and Hypertension. Paternal Grandmother: thyroid ca and Breast cancer. Paternal Aunt: ., uterine ca and brain and lung cancer. MENSTRUAL HISTORY: LMP Known?- ApproximateAmount/Duration - 5-7, Regularity - Regular, Frequency - monthly days, LMP - 02/15/22, Age Onset Menarche - 14 PAST PREGNANCIES: Total Pregnancies - 1; Full Term Pregnancies - 1; Premature - 0; Abortions, Induced - 0; Abortions, Spontaneous - 0; Ectopics - 0; Multiple Births - 0; Living Children - 1 SURGICAL HISTORY: 1. ; - 2. cholecystectomy, Oct 2013 ; - 3. 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 Abnormal breast tissue removed in March 2013 ; - 5. D in february ; - PHYSICAL EXAM BP- 124/74 Sitting, Right arm, regular cuff Temp- 98.4 Taken Orally Weight- 173.69375 lbs Height- 66.25 inch BMI:[id number] CONSTITUTIONAL - NAD, well nourished, and well developed SKIN - No rash, lesions, or ulcers HEENT - Normocephalic, PERRLA, EOMI LUNGS - normal respiratory rate and rhythm CV - RRR ABD - soft, nontender, nondistended, no hepatosplenomegaly NEUROLOGICAL - normal gait, normal balance, normal motor PSYCHIATRIC - A and O to time, place, person, mood and affect External Genitial Vagina - non-tender without lesions Urethra/Urethral Meatus - non-tender Bladder - non-tender Vagina - vaginal lind are pink and moist without loss of rugae and no evidence of atropy Cervix - without cervical motion tenderness and has normal size and features without evident lesions Uterus - 6 cm in size, mobile and nontender Adnexa - clear without massess or tenderness Pap - obtained ASSESSMENT/PLAN: 1. High Grade Squamous Intraepithelial Lesion On Cytologic Smear Of Cervix (hgsil) AGC-favor neoplasia, HGSIL with positive HRHPV Colpo and ECC with glandular atypia EMB benign pathology Plan for cold knife conization, ECC, dilation and curettage for endometrial sampling Procedural r/b/i reviewed Blood products acceptable Assessment & Plan Assessment/Plan (1) Atypical glandular cells, favor neoplasia on cervical Pap smear:
[2022-03-07 06:34] LABS: Internal QC Validated? YES +Cl - CLEAR BKGD; Pregnancy, Urine Negative Negative
[2022-03-07] MEDS: Lactated Ringers 1,000 ML 15 ML IV (06:37)
--- NOTE | 2022-03-07 07:30 | CONE_PTH ---
PATIENT: LEWIS AVILA [place] [facility] [place][id number] AGE/SX: 37/F ROOM: RE03/07/[address]: Dr. Cassidy Dow MD : 1985 BED: DIS: 03/07/2022 SPEC #: [id number] RECD: 03/07/22 10:25 STATUS: MEGHA RELis #: [id number] SIM: 03/07/22 07:[address]: Cassidy Zhao DEPT: SURGICAL PATHOLOGY RECD BY: Saba Peterson ENTERED: 03/07/22 10:56 SP TYPE: Leep Pedro LAN DR: Dr. Don Gotti MD Tissues: A - UTERINE CERVIX LEEP B - Endocervical C - Endometrium, NOS Procedures: Surgery Specimen Level IV Surgery Specimen Level V HEADER OPERATION: D & C, cold knife conization, endocervical curettage PRE-OP DIAGNOSIS: Atypical glandular cells on cervical pap smear TISSUE SUBMITTED: A ? Cone, suture at 12 o?clock, extra piece from 12 o?clock, B ? ECC, C ? Endometrial curettings MICROSCOPIC DIAGNOSIS A. Cervix, cone biopsy: Endocervical adenocarcinoma in situ. See comment. B. Endocervical curettings: Fragments of benign endocervical mucosa and benign endometrial tissue. Negative for dysplasia or adenocarcinoma in situ. C. Endometrial curettings: Weakly proliferative endometrium. SJ:cyndee 03/08/2022 COMMENT A. Endocervical adenocarcinoma in situ measures 1 x 0.5 cm in greatest dimension (measured microscopically). Endocervical adenocarcinoma in situ is <0.1 cm away from the deep margin. Focal areasof endocervical epithelial atypia is noted at the peripheral and deep margins. Correlation with clinical findings and appropriate follow up are necessary. Please make reference to previous specimen ([id number]), cervix, 8 o?clock, cervix, 4 o?clock, biopsies and endocervical curettings with diagnosis of ?focal minimal glandular atypia.? Case has been reviewed in consultation with Dr. Fuentes who concurs with the above diagnosis. IDC:AM MICROSCOPIC DESCRIPTION Slides are reviewed. GROSS DESCRIPTION A - Received in fixative is one container labeled with the patient's name and designated cone. The specimen consists of two irregular fragments of pink-mantilla soft tissue with attached mucosal tissue ranging in size from 1.5 to 3 cm in greatest dimension. The smaller fragment is inked, serially sections along its narrow axis and totally submitted in cassette 1. The larger fragment is differentially inked as follows: 12 o?clock ? yellow, 9-12 o?clock ? black and 12-presumed 6 o?clock ? blue. The remainder of the specimen is submitted in cassettes 2-4 ((larger fragment). B - Received in fixative is one container labeled with the patient's name and designated ECC. The specimen consists of multiple irregular fragments of mantilla tissue that in aggregate measure 2 x 0.6 x 0.1 cm. The specimen is totally submitted in one cassette. C - Received in fixative is one container labeled with the patient's name and designated endometrial curettings. The specimen consists of multiple irregular fragments of red-mantilla soft tissue that in aggregate measure 1 x 1 x <0.1 cm. The specimen is totally submitted in one cassette. / AM:cyndee 03/07/2022 TC:0 CPT: 82909, 25928 x2
[2022-03-07] MEDS: Iodine/Potassium Iodide 14ML Bottle 1 DRP TOPICAL (08:07)
[2022-03-07] MEDS: FERRIC SUBSULFATE 8 GM SOLN (08:29)
[2022-03-07] MEDS: Lidocaine 1% /Epi 1:100 (20ml) 20 ML Vial (08:45)
--- NOTE | 2022-03-07 08:46 | PCM.OPRPT ---
Problems Associated Problem List Diagnoses (1) Atypical glandular cells, favor neoplasia on cervical Pap smear: Report of Operation Date of Procedure: 03/07/22 Pre-Operative Diagnosis: 1. Atypical glandular cells with high grade dysplasia favor neoplasia Post-Operative Diagnosis: 1. Atypical glandular cells with high grade dysplasia favor neoplasia Surgery/Procedure Performed:: 1. Cold knife conization 2. Endocervical curettage 3. Dilation and curettage Description of Surgical Findings:: limited Lugol's resistance at 4-6 o'clock Surgeon: Cassidy Zhao Type of Anesthesia: Local and MAC Anesthesiologist: mere Specimen's removed: 1. ectocervix - cone biopsy 2. endocervical curettings 3. endometrial curettings Estimated Blood Loss (mL): 120 Fluids Replaced: 900 ml Description of Procedure: Indications: 37-year-old 1 para 1-0-0-1 with a history of atypical glandular cells and HGSIL for neoplasia presents for scheduled cold knife conization, endocervical curettage and dilation curettage. She had an office biopsy demonstrating atypical glandular cells at the ectocervix and endocervix. Procedural risks, benefits, indications were reviewed at length and patient did agree to proceed. Procedure: Patient was brought to the operating room and placed in dorsal supine position and induced under MAC. She was repositioned to dorsolithotomy and examination under anesthesia was performed. The perineum was prepped and draped in sterile fashion. The patient is placed in the high lithotomy and speculum placed vaginally. A paracervical block was given for a total of 20 cc of 1% lidocaine with epinephrine 1 and 100,000. The Lugol's solution was applied with the above-stated findings. Cold knife cone was performed. Endocervical curettings were obtained. The cervix was subsequently dilated and sharp endometrial curettage performed. The cone excisional bed was electrocoagulated using the ball electrode and Monsel solution applied. There was continued bleeding however despite compression and repeat application of Monsel's thus a Sturmdorf suture was placed using 0 Vicryl. There was excellent hemostasis. The procedure was complete. The patient was awakened and will be transferred to the recovery room. Sponge counts were correct x2. Complications None Admit VTE Documentation VTE Present on Admission: No VTE Mechan Device [place]axis: [facility] [place] Prophylaxis ordered?: No
--- NOTE | 2022-03-07 08:52 | PCM.DC ---
Discharge Instructions Diet Discharge Diet: No restrictions Activity Discharge Activity: Return to Normal Activity May resume sexual activity in: 4 weeks Lifting Restrictions: 10 lb for 1 week Dressing / Incision Call your doctor if you observe: Fever of 101 or Higher, Using more than 1 pad per hour, Shortness of breath, Chest pain, Calf discomfort and Uncontrolled pain Follow Up Care Please Follow Up With: Cassidy Dow MD When: 4 weeks in office Test Results: Test results from this visit will be discussed in further detail at your follow-up appointment, if applicable. Discharge Plan Admission Primary Reason for Your Visit: Cold knife conization and dilation and curettage Attending Provider: Cassidy Zhao Primary Care Provider: Don Gotti Instructions Patient Instructions: After a Cone Biopsy Discharge Orders/Prescriptions Prescriptions: New hydrocodone-acetaminophen 5-325 mg Tablet 1 tab PO Q6H PRN PRN (Reason: Pain Score 1-5/10) 3 Days Qty: 12 RF: 0 Continued escitalopram oxalate 5 mg tablet 5 mg PO DAILY RF: 0 Adult Probiotic 3 billion cell capsule 3,000 mmu cells PO DAILY RF: 0 norethindrone (contraceptive) 0.35 mg Tablet 0.35 mg PO DAILY RF: 0 Referrals / Follow Up: Don Gotti MD [Primary Care Provider] - Disposition Disposition (needs filled in before D/C Order can be placed): Home, Self Care
[2022-03-07] MEDS: Lactated Ringers 500 ML 999 ML IV (10:05)
--- NOTE | 2022-03-07 10:50 | SUR.PHASEII ---
Pt getting out of bed with ease, new pad and underwear applied, previous pad was half saturated. States she feels a gush of blood. Ambulating to bathroom with standby assist. This RN entering bathroom pt states she is bleeding a lot. The toilet is dark red with multiple clumps of red saturated toilet paper. Pt stands up and leans towards the wall stating she is light headed. Half of new pad is saturated, likely from walk to bathroom. Pt is assisted to a wheelchair with staff assist x2 and assisted into bed. VS obtained. Pt stable, color appears as normal per pt's mother. This RN will update Dr. Beard
--- NOTE | 2022-03-07 11:40 | SUR.PHASEII ---
Dr. Beard bedside doing vaginal exam and placing vaginal packing. instructing pt and pt's mother signs and symptoms of complications and to make appointment with Dr. Beard tomorrow morning. Pt given after hours number and verbalize understanding of instructions.
== END 2022-03-07 12:12 | disposition home or self-care (01) ==
LOC: SDC 05:47 → AC 05:48
PROVIDERS: Anesthesiology; PCP Family Medicine; Referring Provider Obstetrics & Gynecology; Visit Provider Obstetrics & Gynecology
PROC: 0UDB7ZZ Extraction of Endometrium, Via Natural or Artificial Opening (ICD-10-PCS; CPT 57520; principal; 2022-03-07 07:15)
DX: D06.0 Carcinoma in situ of endocervix (principal); F41.9 Anxiety disorder, unspecified; F32.A Depression, unspecified; Z87.19 Personal history of other diseases of the digestive system; Z85.820 Personal history of malignant melanoma of skin; Z90.49 Acquired absence of other specified parts of digestive tract
CPT/HCPCS: 57520; 00940; 36415; 81025; 85027; 85610; 85730; 86850; 86900; 86901; 88305; 88307; J7120; A4216; J2405

== ENCOUNTER 2022-05-27 21:40 | Emergency (ER) | payer MEDICAID, SELFPAY ==
[2022-05-27 21:41] VITALS: BP 150/105; PULSE 116; RESP 18; TEMP 36.1; O2SAT 98; BMI 28.2
--- NOTE | 2022-05-27 22:23 | RAD_ITS ---
EXAM: XR CHEST, 2 VIEWS CLINICAL INDICATION: Cough x1 week, to negative COVID test TECHNIQUE: Frontal and lateral views of the chest. This report was created using [employer] report generation technology. COMPARISON: None. FINDINGS: LUNGS AND PLEURAL SPACES: Unremarkable. No consolidation or edema. No pneumothorax. No effusion. HEART: Unremarkable. Cardiac silhouette not enlarged. MEDIASTINUM: Central airways and mediastinal contour are unremarkable. BONES/JOINTS: Unremarkable. SOFT TISSUES: Unremarkable. RAD/Chest PA and Lateral IMPRESSION: No radiographic evidence of acute cardiopulmonary disease. Electronically Signed: Desmond Bailey MD at 23:17 EDT ,
--- NOTE | 2022-05-27 22:24 | EDS_ITS ---
HPI HPI - URI History of Present Illness Chief Complaint: Shortness of Breath Informant: patient Onset/Context/Timing Onset: Weeks (Onset of this illness was 1 week ago) Context: Sudden Onset Timing: - (Nonproductive cough and shortness of breath) Quality: Dyspnea at rest Location: Respiratory Current Severity: Mild Maximum Severity: Moderate Worsened by: Not Worsened By Swallowing, Eating Solids or Drinking Liquids Relieved by: Not Relieved By Tylenol or NSAIDs Associated Symptoms Associated Symptoms: Positive for Nasal Congestion (When I cough ), Shortness of Breath, Chest Pain and Nonproductive cough; Negative for Headache, Sinus Pressure, Myalgias, Nausea, Vomiting, Diarrhea, Hemoptysis or Productive Cough Narrative Narrative: Patient is a 37-year-old non-smoker who has had recurrent respiratory symptoms since January of this year. She has performed 2 COVID test in the past week. These were both negative. She has had no known exposure. She denies fever. She reports congestion when she coughs otherwise she has no problems with rhinorrhea congestion postnasal drainage. She does report mild sore throat due to coughing. She denies headache, visual, ocular auditory symptoms. She denies neck pain or neck stiffness. She denies nausea, vomiting or diarrhea. She denies myalgias arthralgias. There is no history of VTE. She denies leg pain, swelling or discoloration. She states Dr. Rojo her primary care physician prescribed inhaler. She has been using inhaler with no improvement. Prior similar symptoms: Yes Recent Illness/Hospitalization: Yes ROS ROS ED Constitutional Constitutional ED: Denies chills, fever(s), subjective, sweats or weight loss Eyes Eyes: Denies blurry vision, change in vision or diplopia ENT ENT ED: Reports rhinorrhea and sore throat; Denies ear pain Cardiovascular Cardiovascular: Reports chest pain and other Details: Patient denies of chest pain when she coughs and states it is a burning sensation. ; Denies orthopnea, palpitations, paroxysmal nocturnal dyspnea or racing heartbeat Respiratory/Chest Respiratory/Chest: Reports cough and dyspnea; Denies dyspnea on exertion, orthopnea, paroxysmal nocturnal dyspnea or sputum Gastrointestinal Gastrointestinal: Denies abdominal pain, constipation, diarrhea, melena, nausea or vomiting Genitourinary Genitourinary ED: Denies dysuria, hematuria or urinary frequency Musculoskeletal Musculoskeletal: Denies arthralgias, back pain, myalgias or neck pain Integumentary Denies rash Neurologic Neurologic: Denies headache(s) or paresthesias Hematologic/Lymphatic Hematologic/Lymphatic: Denies easy bleeding or easy bruising PFSH PFSH Medical History Alcohol use Anxiety Cancer Depression Easy bruising History of edema History of IBS History of melanoma Injury of back Non-smoker Palpitations Home Medications escitalopram oxalate 5 mg tablet 5 mg PO DAILY 02/12/21 [History Last Taken Unknown] lactobacillus combination no.8 3 billion cell capsule (Adult Probiotic) 3,000 mmu cells PO DAILY 02/12/21 [History Last Taken Unknown] norethindrone (contraceptive) 0.35 mg tablet 0.35 mg PO DAILY 02/27/22 [History Last Taken Unknown] hydrocodone-acetaminophen 5-325mg 5mg-325mg 1 tab PO Q6H PRN PRN Pain Score 1- 5/10 3 days #12 tabs 03/07/22 [Rx Last Taken Unknown] hydrocodone-homatropine 5 mg-1.5 mg/5 mL (5 mL) oral syrup (Hycodan) 5 ml PO Q6H PRN cough 4 days #90 mL 05/27/22 [Rx Last Taken Unknown] prednisone 20 mg tablet 60 mg PO DAILY #15 TABLETS 05/27/22 [Rx Last Taken Unknown] Allergy/AdvReac Type Severity Reaction Status Date / Time adhesive Allergy Rash Verified 05/27/22 21:43 bee venom protein (honey bee) Allergy Anaphylaxis Verified 05/27/22 21:44 Surgical History Hx laparoscopic cholecystectomy Hx of dilation and curettage Hx of exploratory laparotomy Social History (Updated 05/27/22 @ 22:[address] Fernando Dee MD) household members: spouse Smoking Status: Never smoker substance use type: does not use EXAM Physical Exam Const Vital Signs: 05/27/22 21:41 05/27/22 22:30 Temperature 96.9 F L Temperature Source Temporal Pulse Rate 116 H Respiratory Rate 18 Respiratory Effort Short of Breath Respiratory Pattern Normal Blood Pressure 150/105 H Blood Pressure Mean 120 Pulse Ox 98 Oxygen Delivery Method Room Air Positive well nourished and well developed General Appearance ED: well developed and NAD; Negative for cyanotic, diaphoretic or pallor HEENT Reports moist mucous membranes HEENT Narrative: Uvula is midline. There is no angioedema. Patient is not on an ALEX inhibitor. normocephalic and atraumatic Face and Sinus: Negative for sinus tenderness Teeth and Gingiva: Negative for caries Throat: posterior oropharynx normal Eyes PERRL and EOMs intact bilaterally General Eye ED: Negative for pale conjunctiva or scleral icterus Neck no lymphadenopathy, supple, no meningeal signs and no JVD Resp normal respiratory effort and No clear to auscultation bilaterally Effort and Inspection: Negative for retractions or pain with movement Auscultation: wheezes scattered wheezes (With forced expiration only. Right upper lobe and left lower lobe) Cardio S1 normal heart sound, S2 normal heart sound and no murmurs Rate: tachycardic Rhythm: regular rhythm GI non-tender, non-distended and no masses Inspection: abdominal distention Back/Spine no CVA tenderness Extremity normal to inspection and full ROM Extremity Narrative: There is no asymmetry, swelling, discoloration, leg vein distention, palpable cords or tenderness along the distribution of the deep venous system. Neuro oriented x3, CN's II-XII intact bilaterally and no sensory deficits noted Psych mental status grossly normal Skin General Skin Exam: Negative for jaundice or pallor Lesions: no lesions Rashes: no rashes MDM MDM MDM Narrative Medical decision making narrative: Patient presents with upper respiratory type symptoms. Suspect this is a viral. Because she has some scattered wheezing chest x-ray was obtained. X-ray was obtained to evaluate for pneumonia. With a negative chest x-ray we will treat with burst of prednisone and cough suppressant. Radiography Diagnostic Testing: Clinical Impression(s) from Imaging Studies Chest X-Ray 05/27/22 22:23 IMPRESSION: No radiographic evidence of acute cardiopulmonary disease. Electronically Signed: Desmond Bailey MD at 23:17 EDT , 2 view chest x-ray was independently reviewed and interpreted by me as negative for pneumonia. There is no effusion. Cardiac silhouette size normal. Perihilar region normal. Osseous trucks unremarkable. Discharge Plan Triage Chief Complaint: Shortness of Breath ED Provider: Fernando Dee Dx/Rx/DC Orders Clinical Impression: Bronchitis with acute wheezing, Sinus tachycardia Instructions: ED Bronchitis with Wheezing (Adult) Prescriptions: New prednisone 20 mg tablet 60 mg PO DAILY Qty: 15 0RF hydrocodone-homatropine [Hycodan] 5-1.5 mg/5 mL (5 mL) syrup 5 ml PO Q6H PRN (Reason: cough) 4 Days Qty: 90 0RF No Action escitalopram oxalate 5 mg tablet 5 mg PO DAILY Label Comments: TAKE 1 TABLET BY MOUTH ONCE DAILY Adult Probiotic 3 billion cell capsule 3,000 mmu cells PO DAILY Rx Instructions: administer with a meal norethindrone (contraceptive) 0.35 mg Tablet 0.35 mg PO DAILY hydrocodone-acetaminophen 5-325 mg Tablet 1 tab PO Q6H PRN PRN (Reason: Pain Score 1-5/10) 3 Days Qty: 12 0RF Primary Care Provider: Don Gotti Referrals: Don Gotti MD [Primary Care Provider] - 1 Week if not improving Disposition Disposition: Home, Self Care
[2022-05-27 23:50] VITALS: BP 134/80; PULSE 88; RESP 16
[2022-05-28] MEDS: HYDROcodone Bitartrate/Apap 5/325 Tablet PO (00:06)
--- NOTE | 2022-05-28 10:37 | ED.RN ---
Pt had RX changed from Dr Sosa due to Hycodan not being available. Dr Sosa changed RX to Loratab tab and sent it to [facility]. Pt is aware
== END 2022-05-28 00:07 | disposition home or self-care (01) ==
PROVIDERS: Emergency Provider Emergency Medicine; PCP Family Medicine; Visit Provider Emergency Medicine
DX: J40 Bronchitis, not specified as acute or chronic (principal); R06.2 Wheezing; R00.0 Tachycardia, unspecified
CPT/HCPCS: 71046; 99282

== ENCOUNTER → 2022-07-17 | Outpatient (CLI) | payer MEDICAID, SELFPAY ==
[2022-07-17 10:35] LABS: Anion Gap 4 (5-15); BUN 9 mg/dL (7-18); BUN/Creat Ratio 12.7 RATIO (10-20); Calcium,Total 8.9 mg/dL (8.5-10.1); Chloride 108 mmol/L (98-107); Cholesterol 183 mg/dL (200); Creatinine, Serum 0.71 mg/dL (0.55-1.02); EST Glomerular Filtration Rate 99 mL/min (>60); Est Glom Filt Rate - Afr Amer 120 mL/min (>60); Glucose 94 mg/dL (74-106); High Density Lipoprotein 53 mg/dL; Potassium 3.8 mmol/L (3.5-5.1); Sodium Level 140 mmol/L (136-145); Triglycerides 77 mg/dL; Very Low Density Lipoprotein 15 mg/dL (5-40)
== END | disposition home or self-care (01) ==
LOC: MFPLAB 09:01
PROVIDERS: PCP Family Medicine; Referring Provider Family Medicine; Visit Provider Family Medicine
DX: Z00.00 Encounter for general adult medical examination without abnormal findings (principal)
CPT/HCPCS: 36415; 80048; 80061

== ENCOUNTER → 2023-03-28 | Outpatient (CLI) | payer MEDICAID, SELFPAY ==
[2023-03-28 18:18] LABS: Bacteria 0 SEEN /hpf (None Seen); Mucous, Urine 0 SEEN /hpf (<or=2+); Red Blood Cells-Urine 0 SEEN /hpf (0-5); Squamous Epithelial Cells - UA 0 SEEN /hpf (5-10); White Blood Cells 0 SEEN /hpf (0-5)
[2023-03-28 18:28] LABS: Color, Urine Yellow (Yellow); Glucose, Dipstick Normal (Normal); Ketone-Dipstick Negative (Negative); Leukocyte Esterase-Dipstick Negative /ul (Negative); Nitrite-Dipstick Negative (Negative); Occult Blood-Urine Negative /ul (Negative); Protein-Dipstick Negative (Negative); Urine Bilirubin Dipstick Negative (Negative); Urine Clarity Clear (Clear); Urine Urobilinogen Normal (Normal)
== END | disposition home or self-care (01) ==
PROVIDERS: PCP Family Medicine; Referring Provider Physician Assistant Surgical; Visit Provider Physician Assistant Surgical
DX: R30.0 Dysuria (principal)
CPT/HCPCS: 81001; 87086; 87088

== ENCOUNTER → 2024-02-25 | Outpatient (CLI) | payer MEDICAID, SELFPAY ==
[2024-03-02 14:09] LABS: HPV APTIMA, High Risk Negative (Negative)
== END | disposition home or self-care (01) ==
LOC: LABSPEC 16:55
PROVIDERS: PCP Family Medicine; Referring Provider Nurse Practitioner Family; Visit Provider Nurse Practitioner Family
DX: Z12.4 Encounter for screening for malignant neoplasm of cervix (principal)
CPT/HCPCS: 87624; 88175; G0145

== ENCOUNTER → 2024-03-05 | Outpatient (CLI) | payer MEDICAID, SELFPAY ==
[2024-03-05 10:54] LABS: Absolute Lymphocyte Count 1.75 X10^3/uL (0.83-4.51); Absolute Neutrophil Count 4.7 X10^3/uL (2.0-7.7); Basophil# 0.03 X10^3/uL; Basophil% 0.4 % (0-1); Eosinophil# 0.29 X10^3/uL; Hematocrit 41.6 % (37-47); Hemoglobin 13.5 g/dL (12.0-15.0); Lymphocyte # 1.75 X10^3/ul (0.83-4.51); Lymphocyte % 23.9 % (19-41); Mean Corp Hgb Conc 32.5 g/dL (32-36); Mean Corpuscular Hgb 27.5 pg (27.0-32.0); Mean Corpuscular Volume 84.7 fL (81-99); Mean Platelet Vol. 9.4 fl (6.2-12.0); Monocyte# 0.47 X10^3/uL; Monocyte% 6.4 % (0-10); NRBC Flagged by Analyzer 0 % (0-5); Neutrophil # 4.73 X10^3/uL (2.7-7.7); Neutrophil % 64.8 % (47-70); Platelet Count 235 K/mm3 (150-450); RBC Distribution Width CV 13.6 % (11.6-14.6); RBC Distribution Width SD 42.4 fl (35.1-43.9); Red Blood Count 4.91 M/mm3 (4.2-5.4); White Blood Count 7.3 K/mm3 (4.4-11.0)
[2024-03-05 11:48] LABS: AST(SGOT) 16 U/L (15-37); Alanine Aminotransfer ALT/SGPT 25 U/L (13-56); Albumin, Serum 3.6 g/dL (3.2-5.0); Alkaline Phosphatase 78 U/L (45-117); Anion Gap 6 (5-15); BUN 8 mg/dL (7-18); BUN/Creat Ratio 9.9 RATIO (10-20); Calcium,Total 8.9 mg/dL (8.5-10.1); Chloride 108 mmol/L (98-107); Cholesterol 176 mg/dL (200); Creatinine, Serum 0.81 mg/dL (0.55-1.02); EST Glomerular Filtration Rate 85 mL/min (>60); Est Glom Filt Rate - Afr Amer 102 mL/min (>60); Globulin 3.5 g/dL (2.2-4.2); Glucose 100 mg/dL (74-106); High Density Lipoprotein 49 mg/dL; Potassium 3.9 mmol/L (3.5-5.1); Protein, Total 7.1 g/dL (6.4-8.2); Sodium Level 138 mmol/L (136-145); Thyroid Stim Hormone (TSH) 1.13 uIU/mL (0.358-3.74); Triglycerides 73 mg/dL; Very Low Density Lipoprotein 15 mg/dL (5-40)
== END | disposition home or self-care (01) ==
LOC: MTLAB 09:24
PROVIDERS: PCP Family Medicine; Referring Provider Nurse Practitioner Family; Visit Provider Nurse Practitioner Family
DX: Z13.1 Encounter for screening for diabetes mellitus (principal); Z13.220 Encounter for screening for lipoid disorders; Z13.29 Encounter for screening for other suspected endocrine disorder
CPT/HCPCS: 36415; 80053; 80061; 84443; 85025

== ENCOUNTER → 2024-03-12 | Outpatient (CLI) | payer MEDICAID, SELFPAY ==
--- NOTE | 2024-03-12 12:45 | US_ITS ---
PROCEDURE: ULTRASOUND OF THE FEMALE PELVIS - COMPLETE REASON FOR EXAM: Female, 39 years old. right sided; s/p hysterectomy 2021 TECHNIQUE: Transabdominal and Transvaginal TECHNICAL QUALITY: Adequate. COMPARISON: None. FINDINGS: The uterus is absent consistent with prior hysterectomy. The right ovary is non-visualized. There is no visualized right adnexal mass or complex lesion. The left ovary is non-visualized. There is no visualized left adnexal mass or complex lesion. Normal color vascular flow and Doppler signal is demonstrated in both ovaries. There is no fluid in the cul-de-sac. The fluid distended bladder is within normal limits. US/Pelvic w/ Transvaginal IMPRESSION: 1. Surgically absent hysterectomy. Neither of the ovaries are visualized on this study and is not clear if they were surgically removed or out of the [id number] or too small to detect by ultrasound Electronically Signed: Angel Kendall MD at 15:20 EDT ,
--- NOTE | 2024-03-12 12:45 | BI_ITS ---
MAMMOGRAPHY - BILATERAL SCREENING REASON FOR EXAM: Female, 39 years old. Routine annual screening examination. PERTINENT HISTORY: Grandmother with breast cancer. History of prior left breast cyst. TECHNIQUE: Digital bilateral breast von (3D mammographic acquisition) in the CC and MLO projections. 2-D mediolateral oblique (MLO) and craniocaudad (CC) views of both breasts were obtained. CAD: Full Field Digital Mammography with Computer Added Detection was performed. COMPARISON: Comparison is made with prior study dated February 01, 2022 and January 23, 2017. FINDINGS: Breast Composition: The breasts are extremely dense, which lowers the sensitivity of mammography. There are no dominant masses or suspicious calcifications. No other significant abnormalities are identified. There has been no significant change since the prior study. BI/SCRN MAMM (CAD)W/VON BILAT IMPRESSION: Stable bilateral screening mammogram. Yearly follow-up mammogram recommended. (A) ASSESSMENT CATEGORY: BIRADS Category 1: Negative. A letter regarding these results will be sent to the patient by the facility within 30 days. Approximately 10% of breast cancers are not detected by mammography. A normal mammogram should not delay biopsy of a clinically suspicious abnormality. [id number] Electronically Signed: Darian Vallejo MD at 8:45 EDT ,
== END | disposition home or self-care (01) ==
PROVIDERS: PCP Family Medicine; Referring Provider Nurse Practitioner Family; Visit Provider Nurse Practitioner Family
DX: Z12.31 Encounter for screening mammogram for malignant neoplasm of breast (principal)
CPT/HCPCS: 76830; 76856; 77063; 77067

== ENCOUNTER → 2024-07-19 | Outpatient (CLI) | payer MEDICAID, SELFPAY ==
[2024-07-19 16:38] LABS: Absolute Lymphocyte Count 2.37 X10^3/uL (0.83-4.51); Absolute Neutrophil Count 6.4 X10^3/uL (2.0-7.7); Basophil# 0.05 X10^3/uL; Basophil% 0.5 % (0-1); Eosinophil# 0.14 X10^3/uL; Eosinophils% 1.4 % (0-5); Hematocrit 40.8 % (37-47); Lymphocyte # 2.37 X10^3/ul (0.83-4.51); Lymphocyte % 24.4 % (19-41); Mean Corp Hgb Conc 31.9 g/dL (32-36); Mean Corpuscular Hgb 27.3 pg (27.0-32.0); Mean Corpuscular Volume 85.7 fL (81-99); Mean Platelet Vol. 9.7 fl (6.2-12.0); Monocyte# 0.62 X10^3/uL; Monocyte% 6.4 % (0-10); NRBC Flagged by Analyzer 0 % (0-5); Neutrophil # 6.39 X10^3/uL (2.7-7.7); Neutrophil % 65.7 % (47-70); Platelet Count 245 K/mm3 (150-450); RBC Distribution Width CV 13.8 % (11.6-14.6); RBC Distribution Width SD 43.2 fl (35.1-43.9); Red Blood Count 4.76 M/mm3 (4.2-5.4); White Blood Count 9.7 K/mm3 (4.4-11.0)
[2024-07-19 16:55] LABS: Vitamin B12 327 pg/mL (211-911)
[2024-07-19 17:06] LABS: ALB/GLOB Ratio 1.1 RATIO (0.9-2.4); AST(SGOT) 23 U/L (15-37); Alanine Aminotransfer ALT/SGPT 38 U/L (13-56); Albumin, Serum 3.6 g/dL (3.2-5.0); Alkaline Phosphatase 79 U/L (45-117); Anion Gap 7 (5-15); BUN 9 mg/dL (7-18); BUN/Creat Ratio 9.5 RATIO (10-20); Calcium,Total 9.2 mg/dL (8.5-10.1); Chloride 106 mmol/L (98-107); Creatinine, Serum 0.94 mg/dL (0.55-1.02); EST Glomerular Filtration Rate 71 mL/min (>60); Est Glom Filt Rate - Afr Amer 86 mL/min (>60); Globulin 3.3 g/dL (2.2-4.2); Glucose 104 mg/dL (74-106); Potassium 3.8 mmol/L (3.5-5.1); Protein, Total 6.9 g/dL (6.4-8.2); Sodium Level 139 mmol/L (136-145); T4 Free Direct 0.99 ng/dL (0.76-1.46)
== END | disposition home or self-care (01) ==
LOC: BIMLAB 15:21
PROVIDERS: PCP Internal Medicine; Referring Provider Internal Medicine; Visit Provider Internal Medicine
DX: F41.9 Anxiety disorder, unspecified (principal); F32.A Depression, unspecified
CPT/HCPCS: 36415; 80053; 82607; 84439; 84443; 85025

== ENCOUNTER → 2025-04-15 | Outpatient (CLI) | payer MEDICAID, SELFPAY ==
[2025-04-15 13:04] LABS: Mucous, Urine 0 SEEN /hpf (<or=2+); Red Blood Cells-Urine 0 SEEN /hpf (0-5); White Blood Cells 0 SEEN /hpf (0-5)
[2025-04-15 15:19] LABS: ALB/GLOB Ratio 1.5 RATIO (0.9-2.4); AST(SGOT) 25 U/L (<=31); Alanine Aminotransfer ALT/SGPT 29 U/L (<=34); Albumin, Serum 4.4 g/dL (3.5-5.0); Alkaline Phosphatase 78 U/L (35-104); Anion Gap 12 (5-15); BUN 8 mg/dL (4-19); BUN/Creat Ratio 10.4 RATIO (10-20); CRP 3.22 mg/L (0.0-3.0); Calcium,Total 9.4 mg/dL (7.6-11.0); Carbon Dioxide 23.2 mmol/L (21.0-32.0); Chloride 102 mmol/L (98-108); Creatinine, Serum 0.78 mg/dL (0.70-1.20); EST Glomerular Filtration Rate 100 (>60); Globulin 2.9 g/dL (2.2-4.2); Glucose 94 mg/dL (70-99); Potassium 4.1 mmol/L (3.3-5.1); Protein, Total 7.2 g/dL (5.9-8.4); Sodium Level 137 mmol/L (133-145); Total Bilirubin 0.53 mg/dL (0.00-1.30)
[2025-04-15 15:44] LABS: Absolute Lymphocyte Count 2.24 X10^3/uL (0.83-4.51); Absolute Neutrophil Count 4.8 X10^3/uL (2.0-7.7); Basophil# 0.04 X10^3/uL; Basophil% 0.5 % (0-1); Eosinophil# 0.11 X10^3/uL; Eosinophils% 1.4 % (0-5); Hematocrit 43.4 % (37-47); Hemoglobin 14.2 g/dL (12.0-15.0); Lymphocyte # 2.24 X10^3/ul (0.83-4.51); Lymphocyte % 28.9 % (19-41); Mean Corp Hgb Conc 32.7 g/dL (32-36); Mean Corpuscular Hgb 27.6 pg (27.0-32.0); Mean Corpuscular Volume 84.4 fL (81-99); Mean Platelet Vol. 9.9 fl (6.2-12.0); Monocyte# 0.55 X10^3/uL; Monocyte% 7.1 % (0-10); NRBC Flagged by Analyzer 0 % (0-5); Neutrophil # 4.77 X10^3/uL (2.7-7.7); Neutrophil % 61.7 % (47-70); Platelet Count 226 K/mm3 (150-450); RBC Distribution Width SD 43.2 fl (35.1-43.9); Red Blood Count 5.14 M/mm3 (4.2-5.4); White Blood Count 7.7 K/mm3 (4.4-11.0)
[2025-04-15 15:48] LABS: Color, Urine Straw (Yellow); Glucose, Dipstick Normal (Normal); Ketone-Dipstick Negative (Negative); Leukocyte Esterase-Dipstick Negative /ul (Negative); Nitrite-Dipstick Negative (Negative); Occult Blood-Urine Negative /ul (Negative); Protein-Dipstick Negative (Negative); Specific Gravity, Urine 1.015 (1.002-1.030); Urine Bilirubin Dipstick Negative (Negative); Urine Clarity Clear (Clear); Urine Urobilinogen Normal (Normal); Urine pH 6.5 (5.0 - 8.0)
[2025-04-15 16:49] LABS: Erythrocyte Sedimentation Rate 5 mm/hr (0-30)
[2025-04-15 17:15] LABS: Bacteria 1+ /hpf (None Seen); Squamous Epithelial Cells - UA 0-5 SEEN /hpf (5-10)
[2025-04-18 17:08] LABS: ANTINUCLEAR ANTIBODIES DIRECT Negative (Negative); Anti-Nuclear Antibody Test Negative (.)
[2025-04-19 04:07] LABS: Complement C3 175 mg/dL (82-167)
== END | disposition home or self-care (01) ==
LOC: MTLAB 12:53
PROVIDERS: PCP Internal Medicine; Referring Provider Student in an Organized Health Care Education/Training Program; Visit Provider Student in an Organized Health Care Education/Training Program
DX: Z13.220 Encounter for screening for lipoid disorders (principal)
CPT/HCPCS: 36415; 80053; 81001; 85025; 85652; 86038; 86140; 86160; 86225

== ENCOUNTER → 2025-07-08 | Outpatient (CLI) | payer MEDICAID, SELFPAY | END | disposition home or self-care (01) | LOC: BIMLAB 13:32 | PROVIDERS: PCP Internal Medicine; Referring Provider Internal Medicine; Visit Provider Internal Medicine | DX: Z00.00 Encounter for general adult medical examination without abnormal findings (principal) ==

== ENCOUNTER → 2025-08-05 | Outpatient (CLI) | payer MEDICAID, SELFPAY ==
--- NOTE | 2025-08-05 08:48 | MRI_ITS ---
PROCEDURE: BRAIN W/WO CONTRAST 08/05/2025 REASON FOR EXAM: DIZZINESS, WEAKNESS TECHNIQUE: Procedure Code: [id number] Modality: MR Procedure: BRAIN W/WO CONTRAST Multiplanar and multisequence images were obtained. CONTRAST: Clariscan VOLUME: 18 mL COMPARISON: None. FINDINGS: There is no abnormal intracranial contrast enhancement. There is a normal sulcal pattern and gyral configuration. There is no evidence of acute intracranial hemorrhage or infarction. The alvarez-white differentiation is well preserved. There is no evidence of restricted diffusion. The ventricles and basilar cisterns are normal. There are normal flow voids demonstrated in the recognized intracranial vessels. The cerebellum and brainstem are unremarkable. The cerebellar pontine angles are normal. The craniovertebral junction is normal. The sella and suprasellar regions are normal. The orbits and retro-orbital regions are unremarkable. There is mild nasal septal deviation to the left. There is mild mucoperiosteal thickening of the frontal sinuses and the ethmoid air cells. The mastoid air cells are clear. There is normal bone marrow signal in the skull base and calvarium. MRI/Brain W/WO Contrast IMPRESSION: 1. Normal MR imaging of the brain with and without contrast. 2. Paranasal sinus disease. Reading Location: [place] [id number]
--- OUTSIDE RECORDS SUMMARY | 2025-08-05 09:00 | XMS RPT_ITS | CCD ---
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 ered By: Nallely Huddelston on 07-08-2025 Lymphocytes Auto (Unsp spec) [#/Vol] 2.02 10*3/uL 0.83-4.51 Absolute neutrophil countOrd ered By: Nallely Huddleston on 07-08-2025 Neutrophils (Bld) [#/Vol] 6.1 10*3/uL 2.0-7.7 Anion gap in Serum or Plasma Ordered By: Nallely Huddleston on 07-08-2025 Anion gap [Moles/Vol] 12 mmol/L 5-15 [facility] Automated lymphocyte count a s percentage of total leukocytesOrdered By: Nallely Huddleston on 07-08-2025 Lymphocytes/100 WBC Auto (Unsp spec) 22.3 % 19-41 BUN/creatinine ratioOrdered By: Nallely Huddleston on 07-08-2025 Urea nitrogen/Creatinine [Mass ratio] 9.3 mg/mg Low 10-20 Basophil percentageOrdered B y: Nallely Huddleston on 07-08-2025 Basophils/100 WBC (Bld) 0.4 % 0-1 [facility] Bilirubin, totalOrdered By: Nallely Huddleston on 07-08-2025 Bilirubin [Mass/Vol] 0.34 mg/dL 0.00-1.30 [facility] Carbon dioxide, total [Moles /volume] in Central venous bloodOrdered By: Nallely Huddleston on 07-08-2025 CO2 [Moles/Vol] 19.2 mmol/L Low 21.0-32.0 Chloride assayOrdered By: Jt Huddleston on 07-08-2025 Chloride [Moles/Vol] 105 mmol/L 98-108 [facility] Eosinophil percentageOrdered By: Nallely Huddleston on 07-08-2025 Eosinophils/100 WBC (Bld) 1.7 % 0-5 Erythrocyte distribution wid th ratioOrdered By: Nallely Huddleston on 07-08-2025 Erythrocyte distribution width (RBC) [Ratio] 13.7 % 11.6-14.6 Erythrocyte distribution wid th standard deviationOrdered By: Nallely Huddleston on 07-08-2025 Erythrocyte distribution width (RBC) [Ratio] 41.8 fl 35.1-43.9 Glomerular filtration rate ( GFR) estimation/1.73 sq m using serum, plasma, or whole bOrdered By: Nallely Huddleston on 07-08-2025 GFR/1.73 sq M.predicted among non-blacks MDRD (S/P/Bld) [Vol rate/Area] 65 mL/min/{1.73_m2} >60 Comment on above: mL/min/1.73m2 CKD-EP I Creatinine Equation (2020) Hematocrit Auto (Bld) [Volum e fraction]Ordered By: Nallely Huddleston on 07-08-2025 Hematocrit (Bld) [Volume fraction] 41.6 % 37-47 Hemoglobin measurementOrdere d By: Nallely Huddleston on 07-08-2025 Hemoglobin (Bld) [Mass/Vol] 14.0 g/dL 12.0-15.0 Immature granulocytes/100 WB C Auto (Bld)Ordered By: Nallely Huddleston on 07-08-2025 Immature granulocytes/100 WBC (Bld) 0.300 % 0.0-0.9 Comment on above: IG% - Immature Granu locytes (promyelocytes, myelocytes and metamyelocytes) > 1% indicates that a LEFT SHIFT is Present. Internal Medicine Office Vis frank 07-08-2025 Internal Medicine Office Visit [facility] [address] [place] [address] [address] [place] [address] OFFICE VISIT Date of Service: 07/08/25 MR#: [id number] Acct: [id number] Name: ALINA AVILA Rep #: [id number] : 1985 Provider: ANNIE lopez Age/Sex: 40/F Location: [facility] [place].[facility] Status: Signed Intake Vital Signs 03/10/25 16:02 07/08/25 12:56 Height 5 ft 6 in 5 ft 6 in Weight: 193 lb 192 lb BMI 31.1 30.9 BP 118/80 122/72 H Blood Pressure Location Lt brachial Rt brachial Position Sitting Sitting Respiration 16 16 Pulse 97 101 H Pulse Source Monitor Monitor Temp 97.2 F L 98.5 F Temp Source Temporal Temporal Pulse Oximetry (%) 97 98 Oxygen Delivery Method room air room air Intake Visit Reasons: Really bad anxiety Chief Complaint: ANXIETY, increased motion sickness, dizziness Price Economist Required: No Accompanied by: Self Is patient in pain?: No Allergies adhesive Allergy (Verified 07/08/25 12:49) Rash bee venom protein (honey bee) Allergy (Verified 07/08/25 12:49) Anaphylaxis Medications ???Medication ???Instructions ???Recorded ???Confirmed ???Type buspirone 10 mg tablet 10 mg PO BID #180 tabs 09/13/24 Rx escitalopram oxalate 20 mg tablet 20 mg PO DAILY #90 tabs 09/13/24 07/08/25 Rx trazodone 50 mg tablet 50 mg PO QHS #90 tabs 09/13/24 Rx epinephrine 0.3 mg/0.3 mL 0.3 mg (0.3 mL) IM ONCE #2 ea 03/07/08/25 Rx injection, auto-injector triamcinolone acetonide 0.1 % 1 applic topical BID Rash #453.6 0 03/10/25 07/08/25 Rx topical cream grams Have you fallen in the past year?: No Nurse's Note: concerned about the possibility of having MS not sure what is anxiety and what is symptoms of something else PFSH Medical History Dermatitis Insomnia Anxiety and depression Anemia Kidney stones Hormone deficiency Hypertension IBS (irritable bowel syndrome) Screening for hypercholesterolemia Screening for diabetes mellitus Adenocarcinoma in situ (AIS) of uterine cervix Cystocele Urinary incontinence Pelvic pain Cancer Depression Alcohol use Anxiety Easy bruising Injury of back History of IBS Non-smoker History of edema Palpitations History of melanoma Surgical History H/O breast surgery History of Mohs surgery for squamous cell carcinoma in situ of skin S/P skin biopsy History of hysterectomy Hx of dilation and curettage Hx of exploratory laparotomy Hx laparoscopic cholecystectomy Family History Grandmother , from esophageal cancer Breast cancer, Onset Age: 40 maternal Esophageal cancer Kidney disease Father COPD (chronic obstructive pulmonary disease) Grandmother COPD (chronic obstructive pulmonary disease) CVA (cerebral vascular accident) Uterine cancer Aunt Lung cancer Kidney disease Other Heart disease Social History adopted: No household members: family and children number of children: 1 current occupational status: employed current occupation: [employer] current occupational exposures/hazards: No pets and animals: Yes pets and animals: cat(s) and dog(s) sexually active: No Smoking Status: Never smoker alcohol intake: current alcohol intake frequency: holidays/special occasions only substance use type: does not use caffeine: Yes (2-3) Type: carbonated beverages and coffee what type of physical activity do you participate in: none seatbelt use: always do you feel safe at home: Yes HPI HPI Chief Complaint: ANXIETY, increased motion sickness, dizziness Details: ALINA AVILA, is a 40 F who presents to the office today for evaluation of symptoms of increased anxiety over the last 2 months. Patient states over the last 2 months she noticed an increase in anxiety as well as increased dizziness at times even when sitting. Also dizzy with motions. She states she has always gotten carsick however in the last 2 months she will get extremely nauseous easily even when driving which was unusual for her. She states that usually the nausea ends and dry heaves not vomiting. She has also had difficulty sleeping but has noted that her sleep pattern has changed with being able to sleep during the day and being more awake at night. She has not changed her medications for anxiety and states that prior to 2 months ago she was feeling well that her anxiety was in control. In the last 2 weeks she does state that she has had an increase in stress with her father being diagnosed with illnesses severe and her dog passing away. However her symptoms have been ongoing previously. She states she feels like (more content not included)... Normal Laboratory - Chemistry and C hemistry - challengeOrdered By: Nallely Huddleston on 07-08-2025 AST [Catalytic activity/Vol] 22 U/L <32 MCV (mean corpuscular volume ) determinationOrdered By: Nallely Huddleston on 07-08-2025 MCV (RBC) [Entitic vol] 83.7 fL 81-99 [facility] Mean corpuscular hemoglobin (MCH) determinationOrdered By: Nallely Huddleston on 07-08-2025 MCH (RBC) [Entitic mass] 28.2 pg 27.0-32.0 Mean corpuscular hemoglobin concentration (MCHC) determinationOrdered By: Nallely Huddleston on 07-08-2025 MCHC (RBC) [Mass/Vol] 33.7 g/dL 32-36 [facility] Mean platelet volume determi nationOrdered By: Nallely Huddleston on 07-08-2025 Platelet mean volume (Bld) [Entitic vol] 9.8 fL 6.2-12.0 Monocyte percentageOrdered B y: Nallely Huddleston on 07-08-2025 Monocytes/100 WBC (Bld) 7.9 % 0-10 [facility] Neutrophil percentageOrdered By: Nallely Huddleston on 07-08-2025 Neutrophils/100 WBC (Bld) 67.4 % 47-70 Nucleated red blood cell per centageOrdered By: Nallely Huddleston on 07-08-2025 Nucleated RBC/100 WBC (Bld) [Ratio] 0 % 0-5 Platelet countOrdered By: Jt Huddleston on 07-08-2025 Platelets (Bld) [#/Vol] 234 10*3/uL 150-450 Potassium measurement (mass/ volume)Ordered By: Nallely Huddleston on 07-08-2025 Potassium (Unsp spec) [Mass/Vol] 3.9 mmol/L 3.3-5.1 RBC Auto (Bld) [#/Vol]Ordere d By: Nallely Huddleston on 07-08-2025 RBC (Bld) [#/Vol] 4.97 10*6/uL 4.2-5.4 [facility] Serum DNA double strand anti body assay (units/volume)Ordered By: Nallely Huddleston on 07-08-2025 DNA double strand Ab Qn (S) TNP Comment on above: Test not performed Serum Scl-70 antibody assay (units/volume)Ordered By: Nallely Huddleston on 07-08-2025 SCL-70 extractable nuclear Ab Qn (S) TNP Comment on above: Test not performed Serum creatinine measurement (mass/volume)Ordered By: Nallely Huddleston on 07-08-2025 Creatinine [Mass/Vol] 1.12 mg/dL 0.70-1.20 [facility] Serum globulin measurementOr dered By: Nallely Huddleston on 07-08-2025 Globulin (S) [Mass/Vol] 2.7 g/dL 2.2-4.2 [facility] Serum glucose measurement (m ass/volume)Ordered By: Nallely Huddleston on 07-08-2025 Glucose [Mass/Vol] 107 mg/dL High 70-99 [facility] Serum or plasma C reactive p rotein measurement (mass/volume)Ordered By: Nallely Huddleston on 07-08-2025 CRP [Mass/Vol] 3.02 mg/L High 0.0-3.0 Serum or plasma alanine nicolas otransferase (ALT) measurementOrdered By: Nallely Huddleston on 07-08-2025 ALT [Catalytic activity/Vol] 20 U/L <35 Serum or plasma albumin rafael urement (mass/volume)Ordered By: Nallely Huddleston on 07-08-2025 Albumin [Mass/Vol] 4.2 g/dL 3.5-5.0 [facility] Serum or plasma albumin/glob ulin mass ratioOrdered By: Nallely Huddleston on 07-08-2025 Albumin/Globulin [Mass ratio] 1.5 {ratio} 0.9-2.4 Serum or plasma alkaline rosmery sphatase measurementOrdered By: Nallely Huddleston on 07-08-2025 ALP [Catalytic activity/Vol] 66 U/L 35-104 Serum or plasma calcium rafael urement (mass/volume)Ordered By: Nallely Huddleston on 07-08-2025 Calcium [Mass/Vol] 9.2 mg/dL 7.6-11.0 [facility] Serum or plasma urea nitroge n measurement (mass/volume)Ordered By: Nallely Huddleston on 07-08-2025 Urea nitrogen [Mass/Vol] 10 mg/dL 4- Serum rheumatoid factor dete ctionOrdered By: Nallely Huddleston on 07-08-2025 Rheumatoid factor Ql (S) < 10.0 IU/mL <15 Sodium levelOrdered By: Kelli Huddleston on 07-08-2025 Sodium [Moles/Vol] 136 mmol/L 133-145 [facility] T4 freeOrdered By: Nallely Chairez nghannah on 07-08-2025 Free T4 [Mass/Vol] 1.00 ng/dL 0.76-1.46 [facility] TSH DL <= 0.005 mIU/L QnOrde red By: Nallely Huddleston on 07-08-2025 TSH Qn 1.010 uIU/mL 0.300-4.200 Total proteinOrdered By: Tania Huddleston on 07-08-2025 Protein [Mass/Vol] 6.9 g/dL 5.9-8.4 [facility] Vitamin B12 ser/plasOrdered By: Nallely Huddleston on 07-08-2025 Cobalamin (Vitamin B12) [Mass/Vol] 354 pg/mL 180-914 White blood cell (WBC) count Ordered By: Nallely Huddleston on 07-08-2025 WBC (Bld) [#/Vol] 9.1 10*3/uL 4.4-11.0 [facility] KIM w/ Reflex Mult Confirmon 04-19-2025 ANTI-DNA (DS)AB TNP Normal Comment on above: Performed By: #### L 3100.5450, L400.0001, L101.9900, L501.6710, L100.0100, L3100.5700, L500.4050, L3100.5800, L3100.7950 #### Laboratory [address] [place], [address] ANTI-SS-A TNP Normal Comment on above: Performed By: #### L 3100.5450, L400.0001, L101.9900, L501.6710, L100.0100, L3100.5700, L500.4050, L3100.5800, L3100.7950 #### Laboratory [address] [place], [place], [id number] ANTI-SS-B TNP Normal Comment on above: Performed By: #### L 3100.5450, L400.0001, L101.9900, L501.6710, L100.0100, L3100.5700, L500.4050, L3100.5800, L3100.7950 #### Laboratory [address] [place], [address] Complement C3on 04-19-2025 COMP C3 175 mg/dL High 82-167 Comment on above: Result Comment: Perf ormed at: - [facility] [id number] Setter Helper: Hugo Amaro PhD, Phone: [phone] Performed By: #### L 3100.5450, L400.0001, L101.9900, L501.6710, L100.0100, L3100.5700, L500.4050, L3100.5800, L3100.7950 #### [id number] [place], [address] Complement C4on 04-19-2025 COMPLEMENT, C4 30 mg/dL Normal 12-38 Comment on above: Performed By: #### L 3100.5450, L400.0001, L101.9900, L501.6710, L100.0100, L3100.5700, L500.4050, L3100.5800, L3100.7950 #### [id number] [place], [place], [id number] Antinuclear Antibody, IFAon 04-18-2025 KIM, IFA Negative Normal . Comment on above: Result Comment: Nega tive <1:80 Borderline 1:80 Positive >1:80 ICAP nomenclature: AC-0 For more information about Hep-2 cell patterns use ANApatterns.org, the official website for the International Consensus on Antinuclear Antibody (KIM) Patterns (ICAP). Performed at: [facility] [address] [id number] Setter Helper: Hugo Amaro PhD, Phone: [phone] Performed By: #### L 3100.5450, L400.0001, L101.9900, L501.6710, L100.0100, L3100.5700, L500.4050, L3100.5800, L3100.7950 #### Laboratory [address] [place], [address] Absolute lymphocyte countOrd ered By: Rick Martinez on 04-15-2025 Lymphocytes Auto (Unsp spec) [#/Vol] 2.24 10*3/uL 0.83-4.51 Absolute neutrophil countOrd ered By: Rick Martinez on 04-15-2025 Neutrophils (Bld) [#/Vol] 4.8 10*3/uL 2.0-7.7 Anion gap in Serum or Plasma Ordered By: Rick Martinez on 04-15-2025 Anion gap [Moles/Vol] 12 mmol/L 5-15 [facility] Automated lymphocyte count a s percentage of total leukocytesOrdered By: Rick Martinez on 04-15-2025 Lymphocytes/100 WBC Auto (Unsp spec) 28.9 % 19-41 BUN/creatinine ratioOrdered By: Rick Martinez on 04-15-2025 Urea nitrogen/Creatinine [Mass ratio] 10.4 mg/mg 10-20 Basophil percentageOrdered B y: Rick Martinez on 04-15-2025 Basophils/100 WBC (Bld) 0.5 % 0-1 [facility] Bilirubin Test strip Ql (U)O rdered By: Rick Martinez on 04-15-2025 Bilirubin Ql (U) Negative Negative Bilirubin, totalOrdered By: Rick Martinez on 04-15-2025 Bilirubin [Mass/Vol] 0.53 mg/dL 0.00-1.30 [facility] CBC W/Diff, Automatedon 03-21 Absolute Lymph 2.24 X10 3/uL Normal 0.83-4.51 Comment on above: Performed By: #### L 3100.5450, L400.0001, L101.9900, L501.6710, L100.0100, L3100.5700, L500.4050, L3100.5800, L3100.7950 #### Laboratory [address] [place], [address] Absolute Neut 4.8 X10 3/uL Normal 2.0-7.7 Comment on above: Performed By: #### L 3100.5450, L400.0001, L101.9900, L501.6710, L100.0100, L3100.5700, L500.4050, L3100.5800, L3100.7950 #### Laboratory [address] [place], [address] Basophils/100 WBC (Bld) 0.5 % Normal 0-1 [facility] Comment on above: Performed By: #### L 3100.5450, L400.0001, L101.9900, L501.6710, L100.0100, L3100.5700, L500.4050, L3100.5800, L3100.7950 #### Laboratory [address] [place], [address] Eosinophils/100 WBC (Bld) 1.4 % Normal 0-5 Comment on above: Performed By: #### L 3100.5450, L400.0001, L101.9900, L501.6710, L100.0100, L3100.5700, L500.4050, L3100.5800, L3100.7950 #### Laboratory [address] [place], [address] Erythrocyte distribution width (RBC) [Ratio] 14.0 % Normal 11.6-14.6 Comment on above: Performed By: #### L 3100.5450, L400.0001, L101.9900, L501.6710, L100.0100, L3100.5700, L500.4050, L3100.5800, L3100.7950 #### Laboratory [address] [place], [address] Hematocrit (Bld) [Volume fraction] 43.4 % Normal 37-47 Comment on above: Performed By: #### L 3100.5450, L400.0001, L101.9900, L501.6710, L100.0100, L3100.5700, L500.4050, L3100.5800, L3100.7950 #### Laboratory [address] [place], [address] Hemoglobin (Bld) [Mass/Vol] 14.2 g/dL Normal 12.0-15.0 Comment on above: Performed By: #### L 3100.5450, L400.0001, L101.9900, L501.6710, L100.0100, L3100.5700, L500.4050, L3100.5800, L3100.7950 #### Laboratory [address] [place], [address] IG% 0.400 Normal 0.0-0.9 Comment on above: Result Comment: IG% - Immature Granulocytes (promyelocytes, myelocytes and metamyelocytes) > 1% indicates that a LEFT SHIFT is Present. Performed By: #### L 3100.5450, L400.0001, L101.9900, L501.6710, L100.0100, L3100.5700, L500.4050, L3100.5800, L3100.7950 #### Laboratory [address] [place], [address] Lymphocytes/100 WBC (Bld) 28.9 % Normal 19-41 Comment on above: Performed By: #### L 3100.5450, L400.0001, L101.9900, L501.6710, L100.0100, L3100.5700, L500.4050, L3100.5800, L3100.7950 #### Laboratory [address] [place], [address] MCH (RBC) [Entitic mass] 27.6 pg Normal 27.0-32.0 Comment on above: Performed By: #### L 3100.5450, L400.0001, L101.9900, L501.6710, L100.0100, L3100.5700, L500.4050, L3100.5800, L3100.7950 #### Laboratory [address] [place], [address] MCHC (RBC) [Mass/Vol] 32.7 g/dL Normal 32-36 [facility] Comment on above: Performed By: #### L 3100.5450, L400.0001, L101.9900, L501.6710, L100.0100, L3100.5700, L500.4050, L3100.5800, L3100.7950 #### Laboratory [address] [place], [address] MCV (RBC) [Entitic vol] 84.4 fL Normal 81-99 [facility] Comment on above: Performed By: #### L 3100.5450, L400.0001, L101.9900, L501.6710, L100.0100, L3100.5700, L500.4050, L3100.5800, L3100.7950 #### Laboratory [address] [place], [address] Monocytes/100 WBC (Bld) 7.1 % Normal 0-10 [facility] Comment on above: Performed By: #### L 3100.5450, L400.0001, L101.9900, L501.6710, L100.0100, L3100.5700, L500.4050, L3100.5800, L3100.7950 #### Laboratory [address] [place], [address] Neutrophils/100 WBC (Bld) 61.7 % Normal 47-70 Comment on above: Performed By: #### L 3100.5450, L400.0001, L101.9900, L501.6710, L100.0100, L3100.5700, L500.4050, L3100.5800, L3100.7950 #### Laboratory [address] [place], [address] Nucleated RBC (Bld) [#/Vol] 0 10*3/uL Normal 0-5 Comment on above: Performed By: #### L 3100.5450, L400.0001, L101.9900, L501.6710, L100.0100, L3100.5700, L500.4050, L3100.5800, L3100.7950 #### Laboratory [address] [place], [address] Platelet mean volume (Bld) [Entitic vol] 9.9 fL Normal 6.2-12.0 Comment on above: Performed By: #### L 3100.5450, L400.0001, L101.9900, L501.6710, L100.0100, L3100.5700, L500.4050, L3100.5800, L3100.7950 #### Laboratory [address] [place], [address] Platelets (Bld) [#/Vol] 226 10*3/uL Normal 150-450 Comment on above: Performed By: #### L 3100.5450, L400.0001, L101.9900, L501.6710, L100.0100, L3100.5700, L500.4050, L3100.5800, L3100.7950 #### Laboratory [address] [place], [address] RBC (Bld) [#/Vol] 5.14 10*6/uL Normal 4.2-5.4 [facility] Comment on above: Performed By: #### L 3100.5450, L400.0001, L101.9900, L501.6710, L100.0100, L3100.5700, L500.4050, L3100.5800, L3100.7950 #### Laboratory [address] [place], [address] (098) RDW SD 43.2 fl Normal 35.1-43.9 Comment on above: Performed By: #### L 3100.5450, L400.0001, L101.9900, L501.6710, L100.0100, L3100.5700, L500.4050, L3100.5800, L3100.7950 #### Laboratory [address] [facility] [address] [place], [place], [id number] (763) WBC (Bld) [#/Vol] 7.7 10*3/uL Normal 4.4-11.0 [facility] Comment on above: Performed By: #### L 3100.5450, L400.0001, L101.9900, L501.6710, L100.0100, L3100.5700, L500.4050, L3100.5800, L3100.7950 #### Laboratory [address] [place], [address] CRPon 04-15-2025 C-REACTIVE PROT 3.22 mg/L High 0.0-3.0 Comment on above: Performed By: #### L 3100.5450, L400.0001, L101.9900, L501.6710, L100.0100, L3100.5700, L500.4050, L3100.5800, L3100.7950 #### Laboratory [address] [place], [address] Carbon dioxide, total [Moles /volume] in Central venous bloodOrdered By: Rick Martinez on 04-15-2025 CO2 [Moles/Vol] 23.2 mmol/L 21.0-32.0 Chloride assayOrdered By: Jessica Martinez on 04-15-2025 Chloride [Moles/Vol] 102 mmol/L 98-108 [facility] Comprehensive Metabolic Prof ilon 04-15-2025 Albumin [Mass/Vol] 4.4 g/dL Normal 3.5-5.0 [facility] Comment on above: Performed By: #### L 3100.5450, L400.0001, L101.9900, L501.6710, L100.0100, L3100.5700, L500.4050, L3100.5800, L3100.7950 #### Laboratory [address] [place], [address] Albumin/Globulin [Mass ratio] 1.5 {ratio} Normal 0.9-2.4 Comment on above: Performed By: #### L 3100.5450, L400.0001, L101.9900, L501.6710, L100.0100, L3100.5700, L500.4050, L3100.5800, L3100.7950 #### Laboratory [address] [place], [address] ALK PHOS 78 U/L Normal 35-104 Comment on above: Performed By: #### L 3100.5450, L400.0001, L101.9900, L501.6710, L100.0100, L3100.5700, L500.4050, L3100.5800, L3100.7950 #### Laboratory [address] [place], [address] ALT [Catalytic activity/Vol] 29 U/L Normal <=34 Comment on above: Performed By: #### L 3100.5450, L400.0001, L101.9900, L501.6710, L100.0100, L3100.5700, L500.4050, L3100.5800, L3100.7950 #### Laboratory [address] [place], [address] AST [Catalytic activity/Vol] 25 U/L Normal <=31 Comment on above: Performed By: #### L 3100.5450, L400.0001, L101.9900, L501.6710, L100.0100, L3100.5700, L500.4050, L3100.5800, L3100.7950 #### Laboratory [address] [place], [place], [id number] (243) Bilirubin [Mass/Vol] 0.53 mg/dL Normal 0.00-1.30 [facility] Comment on above: Performed By: #### L 3100.5450, L400.0001, L101.9900, L501.6710, L100.0100, L3100.5700, L500.4050, L3100.5800, L3100.7950 #### Laboratory [address] [place], [place], [phone] BUN/CRE 10.4 RATIO Normal 10-20 Comment on above: Performed By: #### L 3100.5450, L400.0001, L101.9900, L501.6710, L100.0100, L3100.5700, L500.4050, L3100.5800, L3100.7950 #### Laboratory [address] [place], [place], [id number] (208) Calcium [Mass/Vol] 9.4 mg/dL Normal 7.6-11.0 [facility] Comment on above: Performed By: #### L 3100.5450, L400.0001, L101.9900, L501.6710, L100.0100, L3100.5700, L500.4050, L3100.5800, L3100.7950 #### Laboratory [address] [place], [address] Chloride [Moles/Vol] 102 mmol/L Normal 98-108 [facility] Comment on above: Performed By: #### L 3100.5450, L400.0001, L101.9900, L501.6710, L100.0100, L3100.5700, L500.4050, L3100.5800, L3100.7950 #### Laboratory [address] [place], [place], [id number] (856) CO2 [Moles/Vol] 23.2 mmol/L Normal 21.0-32.0 Comment on above: Performed By: #### L 3100.5450, L400.0001, L101.9900, L501.6710, L100.0100, L3100.5700, L500.4050, L3100.5800, L3100.7950 #### Laboratory [address] [place], [address] Creatinine [Mass/Vol] 0.78 mg/dL Normal 0.70-1.20 [facility] Comment on above: Performed By: #### L 3100.5450, L400.0001, L101.9900, L501.6710, L100.0100, L3100.5700, L500.4050, L3100.5800, L3100.7950 #### Laboratory [address] [place], [address] GAP 12 Normal 5-15 Comment on above: Performed By: #### L 3100.5450, L400.0001, L101.9900, L501.6710, L100.0100, L3100.5700, L500.4050, L3100.5800, L3100.7950 #### Laboratory [address] [place], [address] GFR/1.73 sq M.predicted among non-blacks MDRD (S/P/Bld) [Vol rate/Area] 100 mL/min/{1.73_m2} Normal >60 Comment on above: Result Comment: mL/m in/1.73m2 CKD-EPI Creatinine Equation (2020) Performed By: #### L 3100.5450, L400.0001, L101.9900, L501.6710, L100.0100, L3100.5700, L500.4050, L3100.5800, L3100.7950 #### Laboratory [address] [place], [address] Globulin (S) [Mass/Vol] 2.9 g/dL Normal 2.2-4.2 [facility] Comment on above: Performed By: #### L 3100.5450, L400.0001, L101.9900, L501.6710, L100.0100, L3100.5700, L500.4050, L3100.5800, L3100.7950 #### Laboratory [address] [place], [address] Glucose [Mass/Vol] 94 mg/dL Normal 70-99 [facility] Comment on above: Performed By: #### L 3100.5450, L400.0001, L101.9900, L501.6710, L100.0100, L3100.5700, L500.4050, L3100.5800, L3100.7950 #### Laboratory [address] [place], [address] Potassium [Moles/Vol] 4.1 mmol/L Normal 3.3-5.1 [facility] Comment on above: Performed By: #### L 3100.5450, L400.0001, L101.9900, L501.6710, L100.0100, L3100.5700, L500.4050, L3100.5800, L3100.7950 #### Laboratory [address] [place], [address] Sodium [Moles/Vol] 137 mmol/L Normal 133-145 [facility] Comment on above: Performed By: #### L 3100.5450, L400.0001, L101.9900, L501.6710, L100.0100, L3100.5700, L500.4050, L3100.5800, L3100.7950 #### Laboratory [address] [place], [address] T PROT 7.2 g/dL Normal 5.9-8.4 Comment on above: Performed By: #### L 3100.5450, L400.0001, L101.9900, L501.6710, L100.0100, L3100.5700, L500.4050, L3100.5800, L3100.7950 #### Laboratory [address] [place], [address] Urea nitrogen [Mass/Vol] 8 mg/dL Normal 4-19 Comment on above: Performed By: #### L 3100.5450, L400.0001, L101.9900, L501.6710, L100.0100, L3100.5700, L500.4050, L3100.5800, L3100.7950 #### Laboratory [address] [place], [address] Eosinophil percentageOrdered By: Rick Martinez on 04-15-2025 Eosinophils/100 WBC (Bld) 1.4 % 0-5 Erythrocyte Sed Rateon 04-15 SED RATE 5 mm/hr Normal 0-30 Comment on above: Performed By: #### L 3100.5450, L400.0001, L101.9900, L501.6710, L100.0100, L3100.5700, L500.4050, L3100.5800, L3100.7950 #### [place], [address] Erythrocyte distribution wid th ratioOrdered By: Rick Martinez on 04-15-2025 Erythrocyte distribution width (RBC) [Ratio] 14.0 % 11.6-14.6 Erythrocyte distribution wid th standard deviationOrdered By: Rick Martinez on 04-15-2025 Erythrocyte distribution width (RBC) [Ratio] 43.2 fl 35.1-43.9 Erythrocyte sedimentation ra teOrdered By: Rick Martinez on 04-15-2025 ESR (Bld) [Velocity] 5 mm/h 0-30 [facility] Glomerular filtration rate ( GFR) estimation/1.73 sq m using serum, plasma, or whole bOrdered By: Rick Martinez on 04-15-2025 GFR/1.73 sq M.predicted among non-blacks MDRD (S/P/Bld) [Vol rate/Area] 100 mL/min/{1.73_m2} >60 Comment on above: mL/min/1.73m2 CKD-EP I Creatinine Equation (2020) Hematocrit Auto (Bld) [Volum e fraction]Ordered By: Rick Martinez on 04-15-2025 Hematocrit (Bld) [Volume fraction] 43.4 % 37-47 Hemoglobin measurementOrdere d By: Rick Martinez on 04-15-2025 Hemoglobin (Bld) [Mass/Vol] 14.2 g/dL 12.0-15.0 Immature granulocytes/100 WB C Auto (Bld)Ordered By: Rick Martinez on 04-15-2025 Immature granulocytes/100 WBC (Bld) 0.400 % 0.0-0.9 Comment on above: IG% - Immature Granu locytes (promyelocytes, myelocytes and metamyelocytes) > 1% indicates that a LEFT SHIFT is Present. Ketones Test strip Ql (U)Ord ered By: Rick Martinez on 06-27-2025 Ketones Ql (U) Negative Negative Laboratory - Chemistry and C hemistry - challengeOrdered By: Rick Martinez on 04-15-2025 AST [Catalytic activity/Vol] 25 U/L <32 MCV (mean corpuscular volume ) determinationOrdered By: Rick Martinez on 04-15-2025 MCV (RBC) [Entitic vol] 84.4 fL 81-99 [facility] Mean corpuscular hemoglobin (MCH) determinationOrdered By: Rick Martinez on 04-15-2025 MCH (RBC) [Entitic mass] 27.6 pg 27.0-32.0 Mean corpuscular hemoglobin concentration (MCHC) determinationOrdered By: Rick Martinez on 04-15-2025 MCHC (RBC) [Mass/Vol] 32.7 g/dL 32-36 [facility] Mean platelet volume determi nationOrdered By: Rick Martinez on 04-15-2025 Platelet mean volume (Bld) [Entitic vol] 9.9 fL 6.2-12.0 Microscopic analysis of urin e for red blood cells (RBC)Ordered By: Rick Martinez on 04-15-2025 Microscopic analysis of urine for red blood cells (RBC) 0 SEEN /hpf 0-5 Monocyte percentageOrdered B y: Rick Martinez on 04-15-2025 Monocytes/100 WBC (Bld) 7.1 % 0-10 [facility] Mucus LM Ql (Urine sed)Order ed By: Rick Martinez on 04-15-2025 Mucus Ql (Urine sed) 0 SEEN /hpf [facility] Neutrophil percentageOrdered By: Rick Martinez on 04-15-2025 Neutrophils/100 WBC (Bld) 61.7 % 47-70 Nitrite Test strip Ql (U)Ord ered By: Rick Martinez on 04-15-2025 Nitrite Ql (U) Negative Negative Nucleated red blood cell per centageOrdered By: Rick Martinez on 04-15-2025 Nucleated RBC/100 WBC (Bld) [Ratio] 0 % 0-5 Platelet countOrdered By: Jessica Martinez on 04-15-2025 Platelets (Bld) [#/Vol] 226 10*3/uL 150-450 Potassium measurement (mass/ volume)Ordered By: Rick Martinez on 04-15-2025 Potassium (Unsp spec) [Mass/Vol] 4.1 mmol/L 3.3-5.1 Protein Test strip Ql (U)Ord ered By: Rick Martinez on 04-15-2025 Protein Ql (U) Negative Negative RBC Auto (Bld) [#/Vol]Ordere d By: Rick Martinez on 04-15-2025 RBC (Bld) [#/Vol] 5.14 10*6/uL 4.2-5.4 [facility] Serum DNA double strand anti body assay (units/volume)Ordered By: Rick Martinez on 04-15-2025 DNA double strand Ab Qn (S) [facility] Comment on above: Test not performed Serum Scl-70 antibody assay (units/volume)Ordered By: Rick Martinez on 04-15-2025 SCL-70 extractable nuclear Ab Qn (S) [facility] Comment on above: Test not performed Serum creatinine measurement (mass/volume)Ordered By: Rick Martinez on 04-15-2025 Creatinine [Mass/Vol] 0.78 mg/dL 0.70-1.20 [facility] Serum globulin measurementOr dered By: Rick Martinez on 04-15-2025 Globulin (S) [Mass/Vol] 2.9 g/dL 2.2-4.2 [facility] Serum glucose measurement (m ass/volume)Ordered By: Rick Martinez on 04-15-2025 Glucose [Mass/Vol] 94 mg/dL 70-99 [facility] Serum or plasma C reactive p rotein measurement (mass/volume)Ordered By: Rick Martinez on 04-15-2025 CRP [Mass/Vol] 3.22 mg/L High 0.0-3.0 Serum or plasma alanine nicolas otransferase (ALT) measurementOrdered By: Rick Martinez on 04-15-2025 ALT [Catalytic activity/Vol] 29 U/L <35 Serum or plasma albumin rafael urement (mass/volume)Ordered By: Rick Martinez on 04-15-2025 Albumin [Mass/Vol] 4.4 g/dL 3.5-5.0 [facility] Serum or plasma albumin/glob ulin mass ratioOrdered By: Rick Martinez on 04-15-2025 Albumin/Globulin [Mass ratio] 1.5 {ratio} 0.9-2.4 Serum or plasma alkaline rosmery sphatase measurementOrdered By: Rick Martinez on 04-15-2025 ALP [Catalytic activity/Vol] 78 U/L 35-104 Serum or plasma calcium rafael urement (mass/volume)Ordered By: Rick Martinez on 04-15-2025 Calcium [Mass/Vol] 9.4 mg/dL 7.6-11.0 [facility] Serum or plasma complement C 4 measurement (mass/volume)Ordered By: Rick Martinez on 04-15-2025 Complement C4 [Mass/Vol] 30 mg/dL 12-38 Serum or plasma urea nitroge n measurement (mass/volume)Ordered By: Rick Martinez on 04-15-2025 Urea nitrogen [Mass/Vol] 8 mg/dL 4-19 Sodium levelOrdered By: Cesar finleyderek Juan on 04-15-2025 Sodium [Moles/Vol] 137 mmol/L 133-145 [facility] Squamous epithelial cells de tection in urine sediment by light microscopyOrdered By: Rick Martinez on 04-15-2025 Epithelial cells.squamous LM Ql (Urine sed) 0-5 SEEN /hpf 5-10 Total proteinOrdered By: Malik Martinez on 04-15-2025 Protein [Mass/Vol] 7.2 g/dL 5.9-8.4 [facility] Urinalysis, Completeon 04-15 BACTERIA 1+ /hpf Normal None Seen Comment on above: Order Comment: CLEAN CATCH Performed By: #### L 3100.5450, L400.0001, L101.9900, L501.6710, L100.0100, L3100.5700, L500.4050, L3100.5800, L3100.7950 #### Laboratory [facility] [address], [address] EPI,SQUAMOUS 0-5 SEEN Normal 5-10 Comment on above: Order Comment: CLEAN CATCH Performed By: #### L 3100.5450, L400.0001, L101.9900, L501.6710, L100.0100, L3100.5700, L500.4050, L3100.5800, L3100.7950 #### Laboratory [address] [place], [place], [id number] ([phone] Mucus Ql (Urine sed) 0 SEEN Normal [facility] Comment on above: Order Comment: CLEAN CATCH Performed By: #### L 3100.5450, L400.0001, L101.9900, L501.6710, L100.0100, L3100.5700, L500.4050, L3100.5800, L3100.7950 #### Laboratory [address] [place], [place], [id number] (709) RBC 0 SEEN Normal 0-5 Comment on above: Order Comment: CLEAN CATCH Performed By: #### L 3100.5450, L400.0001, L101.9900, L501.6710, L100.0100, L3100.5700, L500.4050, L3100.5800, L3100.7950 #### Laboratory [address] [place], [place], [phone] (510) WBC 0 SEEN Normal 0-5 Comment on above: Order Comment: CLEAN CATCH Performed By: #### L 3100.5450, L400.0001, L101.9900, L501.6710, L100.0100, L3100.5700, L500.4050, L3100.5800, L3100.7950 #### Laboratory [address] [place], [place], [id number] Urine clarityOrdered By: Malik Martinez on 04-15-2025 Clarity (U) Clear Clear Urine color determinationOrd ered By: Rick Martinez on 04-15-2025 Color (U) Straw Yellow Urine glucose detectionOrder ed By: Rick Martinez on 04-15-2025 Glucose Ql (U) Normal mg/dl Normal Urine leukocyte esterase det ection by dipstickOrdered By: Rick Martinez on 04-15-2025 Leukocyte esterase Test strip Ql (U) Negative Negative Urine pHOrdered By: Rick Martinez on 04-15-2025 pH (U) 6.5 [pH] 5.0 - 8.0 Urine sediment bacteria coun t by microscopy (number/high power field)Ordered By: Rick Martinez on 04-15-2025 Bacteria LM.HPF (Urine sed) [#/Area] 1 /[HPF] None Seen Urine specific gravity measu rementOrdered By: Rick Martinez on 04-15-2025 Specific gravity (U) [Rel density] 1.015 1.002-1.030 Urine urobilinogen measureme ntOrdered By: Rick Martinez on 04-15-2025 Urobilinogen Ql (U) Normal mg/dl Normal [facility] White blood cell (WBC) count Ordered By: Rick Martinez on 04-15-2025 WBC (Bld) [#/Vol] 7.7 10*3/uL 4.4-11.0 [facility] White blood cell countOrdere d By: Rick Martinez on 04-15-2025 White blood cell count 0 SEEN /hpf 0-5 [facility] Internal Medicine Office Vis itorohit 03-10-2025 Internal Medicine Office Visit [facility] [address] [place] [address] [place] [address] OFFICE VISIT Date of Service: 03/10/25 MR#: [id number] Acct: [id number] Name: ALINA AVILA Rep #: [id number] : 1985 Provider: Dr. Johana martinez MD Age/Sex: 40/F Location: [facility] [place] Status: Signed Intake Vital Signs 09/08/24 15:56 02/25/25 13:52 03/10/25 16:02 Height 5 ft 6 in 5 ft 6 in 5 ft 6 in Weight: 196 lb 193 lb BMI 31.6 31.1 BP 118/72 118/80 Blood Pressure Location Lt brachial Lt brachial Position Sitting Sitting Respiration 16 16 Pulse 81 97 Pulse Source Monitor Monitor Temp 97.5 F L 97.2 F L Temp Source Temporal Temporal Pulse Oximetry (%) 98 97 Oxygen Delivery Method room air room air Intake Visit Reasons: 6 M FU Chief Complaint: Follow-up chronic conditions. Itching/rash Price Economist Required: No Is patient in pain?: Yes (L side) Pain scale (1-10): 4 Allergies adhesive Allergy (Verified 03/10/25 15:55) Rash bee venom protein (honey bee) Allergy (Verified 03/10/25 15:55) Anaphylaxis Medications ???Medication ???Instructions ???Recorded ???Confirmed ???Type buspirone 10 mg tablet 10 mg PO BID #180 tabs 09/13/24 Rx escitalopram oxalate 20 mg tablet 20 mg PO DAILY #90 tabs 09/13/24 03/10/25 Rx trazodone 50 mg tablet 50 mg PO QHS #90 tabs 09/13/24 Rx epinephrine 0.3 mg/0.3 mL 0.3 mg (0.3 mL) IM ONCE #2 ea 03/03/10/25 Rx injection, auto-injector methylprednisolone 4 mg tablets in See Rx Instructions PO PER PKG D IR 03/10/25 03/10/25 Rx a dose pack (Medrol (Alfonso)) #21 tabs triamcinolone acetonide 0.1 % 1 applic topical BID Rash #453.6 0 03/10/25 03/10/25 Rx topical cream grams PFSH Medical History (Updated 03/10/25 @ 16:[address] Johana Jean MD) Dermatitis Insomnia Anxiety and depression Anemia Kidney stones Hormone deficiency Hypertension IBS (irritable bowel syndrome) Screening for hypercholesterolemia Screening for diabetes mellitus Adenocarcinoma in situ (AIS) of uterine cervix Cystocele Urinary incontinence Pelvic pain Cancer Depression Alcohol use Anxiety Easy bruising Injury of back History of IBS Non-smoker History of edema Palpitations History of melanoma Surgical History H/O breast surgery History of Mohs surgery for squamous cell carcinoma in situ of skin S/P skin biopsy History of hysterectomy Hx of dilation and curettage Hx of exploratory laparotomy Hx laparoscopic cholecystectomy Family History Grandmother , from esophageal cancer Breast cancer, Onset Age: 40 maternal Esophageal cancer Kidney disease Father COPD (chronic obstructive pulmonary disease) Grandmother COPD (chronic obstructive pulmonary disease) CVA (cerebral vascular accident) Uterine cancer Aunt Lung cancer Kidney disease Other Heart disease Social History adopted: No household members: family and children number of children: 1 current occupational status: employed current occupation: [employer] current occupational exposures/hazards: No pets and animals: Yes pets and animals: cat(s) and dog(s) sexually active: No Smoking Status: Never smoker alcohol intake: current alcohol intake frequency: holidays/special occasions only substance use type: does not use caffeine: Yes (2-3) Type: carbonated beverages and coffee what type of physical activity do you participate in: none seatbelt use: always do you feel safe at home: Yes HPI HPI Chief Complaint: Follow-up chronic conditions. Itching/rash Details: ALINA AVILA, is a 40 F who presents to the office today for follow-up of her chronic conditions. Also has some concerns. Diagnosed with shingles a few weeks ago. Extensive. At this time, she states that the main concern is itching. Pain is present but not as bothersome. She states that she is unable to sleep or function or wear clothing due to significant itching. History of anxiety and depression, she states that she is doing well on current regimen. No concerning side effects. No concerns with sleep. ROS Const Constitutional: No body ache, chills, excessive sweating, fatigue, fever(s), frequent falls, headache(s), snoring, weakness, sleep problems or change in appetite Eyes Eyes: No blurry vision, change in vision, bulging eyes, floaters, visual disturbances, eye pain or Light sensitivity ENT ENT: No abnormal hearing, ear or mastoid pain, tinnitus, balance problems, nosebleed/epistaxis, nasal congestion, headache(s), neck pain or sore throat Resp Respiratory: No cough, (more content not included)... [facility] iton [facility]-25-[facility]25 Internal Medicine Office Visit [facility] [address] [place] [address] [place] [address] OFFICE VISIT Date of Service: 02/25/25 MR#: [id number] Acct: [id number] Name: ALINA AVILA Rep #: [id number] : 1985 Provider: HECTOR Schreiber Age/Sex: 40/F Location: [facility] Status: Signed Intake Vital Signs 09/08/24 15:56 02/25/25 13:52 Height 5 ft 6 in 5 ft 6 in Weight: 196 lb 189 lb 2 oz BMI 31.6 30.5 BP 118/72 110/70 Blood Pressure Location Lt brachial Lt brachial Position Sitting Sitting Respiration 16 16 Pulse 81 97 Pulse Source Monitor Monitor Temp 97.5 F L 97.3 F L Temp Source Temporal Temporal Pulse Oximetry (%) 98 97 Oxygen Delivery Method room air room air Intake Visit Reasons: POSSIBLE SHINGLES Chief Complaint: possible shingles Price Economist Required: No Accompanied by: Self Is patient in pain?: Yes (left side ) Pain scale (1-10): 5 Allergies adhesive Allergy (Verified 02/25/25 13:49) Rash bee venom protein (honey bee) Allergy (Verified 02/25/25 13:49) Anaphylaxis Medications ???Medication ???Instructions ???Recorded ???Confirmed ???Type buspirone 10 mg tablet 10 mg PO BID #180 tabs 09/13/24 Rx escitalopram oxalate 20 mg tablet 20 mg PO DAILY #90 tabs 09/13/24 02/25/25 Rx trazodone 50 mg tablet 50 mg PO QHS #90 tabs 09/13/2407/14 Rx epinephrine 0.3 mg/0.3 mL 0.3 mg (0.3 mL) IM ONCE #2 ea 12/1802/25/25 Rx injection, auto-injector valacyclovir 1 gram tablet 1,000 mg PO TID #21 tabs 02/25/25 02/25/25 Rx (Valtrex) Have you fallen in the past year?: No Nurse's Note: rash under left breast around to left side and back and c/o headache difficulty sleeping d/t feeling like side on fire PFSH Medical History Insomnia Anxiety and depression Anemia Kidney stones Hormone deficiency Hypertension IBS (irritable bowel syndrome) Screening for hypercholesterolemia Screening for diabetes mellitus Adenocarcinoma in situ (AIS) of uterine cervix Cystocele Urinary incontinence Pelvic pain Cancer Depression Alcohol use Anxiety Easy bruising Injury of back History of IBS Non-smoker History of edema Palpitations History of melanoma Surgical History H/O breast surgery History of Mohs surgery for squamous cell carcinoma in situ of skin S/P skin biopsy History of hysterectomy Hx of dilation and curettage Hx of exploratory laparotomy Hx laparoscopic cholecystectomy Family History Grandmother , from esophageal cancer Breast cancer, Onset Age: 40 maternal Esophageal cancer Kidney disease Father COPD (chronic obstructive pulmonary disease) Grandmother COPD (chronic obstructive pulmonary disease) CVA (cerebral vascular accident) Uterine cancer Aunt Lung cancer Kidney disease Other Heart disease Social History adopted: No household members: family and children number of children: 1 current occupational status: employed current occupation: [employer] - [employer] current occupational exposures/hazards: No pets and animals: Yes pets and animals: cat(s) and dog(s) sexually active: No Smoking Status: Never smoker alcohol intake: current alcohol intake frequency: holidays/special occasions only substance use type: does not use caffeine: Yes (2-3) Type: carbonated beverages and coffee what type of physical activity do you participate in: none seatbelt use: always do you feel safe at home: Yes HPI HPI Chief Complaint: possible shingles Details: ALINA AVILA, is a 40 F who presents to the office today for rash. Patient states that this started as a small blister about 3 days ago and she thought this was irritation from the underwire of her bra. She states that last night she was very uncomfortable last night and just really tender in the under breast area and also on her back (all on the left side). She states that she always has anxiety but states that she has not had any real changes. ROS Const Constitutional: No body ache, excessive sweating, fatigue, fever(s), frequent falls, headache(s), snoring, weakness, weight change, sleep problems or change in appetite Eyes Eyes: No blurry vision, change in vision, eye pain or Light sensitivity ENT ENT: No abnormal hearing, ear or mastoid pain, tinnitus, nasal congestion, headache(s), neck pain or sore throat Resp Respiratory: No cough, shortness of breath, snoring or wheezing Cardio Cardiology: No chest pain at rest, chest pain with exertion, excessive sweating, shortness of breath, dyspnea on exertion, lightheadedness, orthopnea or palpitations (more content not included)... Normal Internal Medicine Office Vis frank 09-08-2024 Internal Medicine Office Visit [facility] [address] [place] [address] [place] [address] OFFICE VISIT Date of Service: 09/08/24 MR#: [id number] Acct: [id number] Name: ALINA AVILA Rep #: [id number] : 1985 Provider: Dr. Johana martinez MD Age/Sex: 39/F Location: [facility] Status: Signed Intake Vital Signs 07/19/24 14:54 09/08/24 15:56 Height 5 ft 6 in 5 ft 6 in Weight: 196 lb BMI 31.6 BP 118/72 Blood Pressure Location Lt brachial Position Sitting Respiration 16 Pulse 81 Pulse Source Monitor Temp 97.5 F L Temp Source Temporal Pulse Oximetry (%) 98 Oxygen Delivery Method room air Intake Visit Reasons: 6 wk FU Chief Complaint: 6 week f/u Price Economist Required: No Accompanied by: Self Is patient in pain?: No Allergies adhesive Allergy (Verified 09/08/24 15:53) Rash bee venom protein (honey bee) Allergy (Verified 09/08/24 15:53) Anaphylaxis Medications ???Medication ???Instructions ???Recorded ???Confirmed ???Type epinephrine 0.3 mg/0.3 mL 0.3 mg IM ONCE 07/19/24 09/08/24 History injection, auto-injector buspirone 10 mg tablet 10 mg PO BID #60 tabs 09/08/24 09/08/24 Rx escitalopram oxalate 20 mg tablet 20 mg PO DAILY #90 tabs 09/08/24 09/08/24 Rx trazodone 50 mg tablet 50 mg PO QHS #90 tabs 09/08/24 09/08/24 Rx PFSH Medical History (Updated 09/08/24 @ 16:[address] Johana Jean MD) Insomnia Anxiety and depression Anemia Kidney stones Hormone deficiency Hypertension IBS (irritable bowel syndrome) Screening for hypercholesterolemia Screening for diabetes mellitus Adenocarcinoma in situ (AIS) of uterine cervix Cystocele Urinary incontinence Pelvic pain Cancer Depression Alcohol use Anxiety Easy bruising Injury of back History of IBS Non-smoker History of edema Palpitations History of melanoma Surgical History H/O breast surgery History of Mohs surgery for squamous cell carcinoma in situ of skin S/P skin biopsy History of hysterectomy Hx of dilation and curettage Hx of exploratory laparotomy Hx laparoscopic cholecystectomy Family History Grandmother , from esophageal cancer Breast cancer, Onset Age: 40 maternal Esophageal cancer Kidney disease Father COPD (chronic obstructive pulmonary disease) Grandmother COPD (chronic obstructive pulmonary disease) CVA (cerebral vascular accident) Uterine cancer Aunt Lung cancer Kidney disease Other Heart disease Social History adopted: No household members: family and children number of children: 1 current occupational status: employed current occupation: [employer] - [employer] current occupational exposures/hazards: No pets and animals: Yes pets and animals: cat(s) and dog(s) sexually active: No Smoking Status: Never smoker alcohol intake: current alcohol intake frequency: holidays/special occasions only substance use type: does not use caffeine: Yes (2-3) Type: carbonated beverages and coffee what type of physical activity do you participate in: none seatbelt use: always do you feel safe at home: Yes HPI HPI Chief Complaint: 6 week f/u Details: ALINA AVILA, is a 39 F who presents to the office today for follow-up. No acute concerns at this time. Started on buspirone due to poorly controlled anxiety. Had been on Lexapro which she continues to take. She believes that her symptoms have been better. Reports occasionally missing her afternoon dose and has noted worsening with missing that dose. Otherwise, tolerating medication well. Other chronic conditions are stable. ROS Const Constitutional: No body ache, chills, excessive sweating, fatigue, fever(s), frequent falls, headache(s), snoring, weakness or change in appetite Eyes Eyes: No blurry vision, change in vision, bulging eyes, floaters, visual disturbances, eye pain or Light sensitivity ENT ENT: No abnormal hearing, ear or mastoid pain, tinnitus, balance problems, nosebleed/epistaxis, nasal congestion, headache(s), neck pain or sore throat Resp Respiratory: No cough, excessive phlegm production, pain on inspiration, shortness of breath, snoring or wheezing Cardio Cardiology: No chest pain at rest, chest pain with exertion, excessive sweating, dyspnea on exertion, lightheadedness, orthopnea or palpitations Gastro GI: No abdominal pain, change in bowel habits, constipation, cramping, diarrhea, nausea/dyspepsia or vomiting Genitourinary-Female: No burning urination, painful urination, urinary incontinence, urinary frequency, suprapubic fullness or side pain Musc Musculoskeletal: No abnormal gait, joint pain, back pain, limited range of (more content not included)... Normal [facility] 08-13-2023 [facility] Office Visit (OBGYWM ) ALINA AVILA ([id number]) 1985 F Date Time Provider Department 08/13/23 9:30 AM KIARRA SAHNI During your visit today, we recorded the following information about you: Blood pressure Weight Height Last Period 118/78 87.1 kg 1.683 m 04/19/22 Kiarra Sahni APRN.[employer] 08/13/2023 4:28 PM Signed Child Care offered: Patient declines. Alina is a 38 year old who presents for an annual gynecologic exam with complaints, of pain of the right lower quadrant and stress incontinence . Menses: no menses - hysterectomy with BS for AIS 04/2022 Contraception: hysterectomy HPV vaccine: No History of abnormal pap: Yes 2020 abnormal, AIS diagnosis Last mammogram: 1-[address] [facility]. Pt. Thinks she was supposed to have follow up, but mammogram was BIRADS 1 Sexually active: No History of STDS: chlamydia [address] Levy note from 05/03/2022 DIAGNOSIS: UTERUS, CERVIX, AND TUBES, HYSTERECTOMY WITH BILATERAL SALPINGECTOMY: RESIDUAL CERVICAL ADENOCARCINOMA IN SITU, NEGATIVE MARGINS WEAKLY PROLIFERATIVE/INACTIVE ENDOMETRIUM UNREMARKABLE MYOMETRIUM UNREMARKABLE FALLOPIAN TUBES 02/01/2022 [facility] mammogram COMPARISON: Comparison is made with prior study dated 01/23/2017. FINDINGS: Breast Composition: The breasts are extremely dense, which lowers the sensitivity of mammography. There are no dominant masses or suspicious calcifications. No other significant abnormalities are identified. There has been no significant change since the prior study. OB History T1 L1 SAB0 IAB0 Ectopic0 Multiple0 Live Births0 Manager Services History LMP: 01/25/2014, Having periods Age at Menarche: Age at First : Age at Menopause: Manager Services History Comments: Sexual Activity: Yes; Male Contraception: Condom PAST MEDICAL HISTORY Diagnosis Date Anxiety Anxiety with Depression Depression HTN (hypertension) resolved Melanoma of skin, site unspecified 1999 Malignant melanoma/Lesion taken off back PAST SURGICAL HISTORY Procedure Laterality Date CATH AND SALINE/CONTRAST SONOHYSTER/HYSTEROSALPI HYSTEROSCOPY 2013 normal LAPS ABD PRTMANDOMENTUM DX W/WO SPEC BR/WA SPX 2009 Laparoscopy LAPS SURG CHOLECYSTECTOMY W/CHOLANGIOGRAPHY 10/29/13 Normal IOC PAST SURGICAL HISTORY OF 1999 melanoma/Lesion taken off back UNSPECIFIED ORAL SURGERY PROCEDURE, BY REPORT FAMILY HISTORY Problem Relation Age of Onset No Known Problems Mother Hypertension Father Anxiety disorder Father COPD Father Depression Father Anxiety disorder Brother Depression Brother Anxiety disorder Brother Depression Brother Hypertension Maternal Grandmother Cancer Maternal Grandmother Uterine Osteoporosis Maternal Grandmother Heart Maternal Grandmother Anxiety disorder Maternal Grandfather Depression Maternal Grandfather COPD Maternal Grandfather Emphysema Maternal Grandfather Cancer Paternal Grandmother Heart Paternal Grandmother Dementia Paternal Grandfather Heart Maternal Aunt Maternal Great Aunt Diabetes Maternal Aunt Maternal Great Aunt Colon Cancer Other none Diabetes Other none Coronary Artery Disease Other none SOCIAL HISTORY Social History Tobacco Use Smoking status: Never Smokeless tobacco: Never Substance Use Topics Alcohol use: Yes Comment: Occasionally Drug use: No Comment: none REVIEW OF SYSTEMS Abdomen: No abdominal pain, nausea, vomiting, diarrhea, or constipation. No bloating, early satiety, indigestion, or increased flatulence. Bladder: No dysuria, gross hematuria, urinary frequency, urinary urgency + stress incontience Breast: No breast lumps, nipple d/c, overlying skin changes, redness or skin retraction. Allergies and current medication updated:Yes EXAM: BP 118/78 Ht 5' 6.25" (1.68m) Wt 192 lb (87.1kg) LMP 04/19/2022 BMI 30.75 kg/(m2). GENERAL: pleasant, female in no apparent distress HEENT: Normocephalic, atraumatic, mucus membranes moist, and no lesions NECK: Supple, full range of motion, no adenopathy, and thyroid normal DERMATOLOGY: Normal, without lesions, non-icteric, and non-hirsute BREAST: soft, non-tender, symmetric, no dominant mass, normal nipple-areolar complex, no lymphadenopathy, and no nipple discharge CHEST: Normal inspiratory effort ABDOMEN: soft, no masses + rebound tenderness to right lower quadrant PELVIC: external genitalia normal, normal Bartholin's glands, urethra, [place]'s glands, no vulvar lesions, good vaginal support, physiologic discharge present, normal appearing perineal body and perianal region, cystocele 1st degree BIMANUAL: uterus surgically absent, no adnexal masses, and non-tender. + tenderness with palpation to right lower quadrant RECTOVAGINAL: deferred. NEURO: alert and oriented x3,exam grossly non-focal EXTREMITIES: normal ASSESSMENT/PLAN: (more content not included)... Normal [facility] HPV W/GENOTYPE THIN PREPon 1 HPV 16 Ag Ql (Unsp spec) Negative Normal Negative for HPV DNA high risk type 16 by PCR [facility] Comment on above: Order Comment: Speci men Type: FLUID SPECIMEN Ordering Facility: [facility] Address: [address] [place], [place] [id number] Performed By: #### H PVHRT #### [facility] CLIA [id number] [address] [place] [address] [place] HPV 18 Ag Ql (Unsp spec) Negative Normal Negative for HPV DNA high risk type 18 by PCR [facility] Comment on above: Order Comment: Speci men Type: FLUID SPECIMEN Ordering Facility: [facility] Address: [address] [place] [address] Performed By: #### H PVHRT #### [facility] CLIA [id number] [address] [place] [address] [place] HPV 31+33+35+39+45+51+52+56 +58+59+66+68 DNA CARMINE+probe Ql (Cvx) Negative for HPV DNA high risk types: 31,33,35,39,45,51,52,56 ,58,59,66,68 by PCR. Normal Negative for HPV DNA high risk types: 31,33,35,39, 45,51,52,56, 58,59,66,68 by PCR. [facility] Comment on above: Order Comment: Speci men Type: FLUID SPECIMEN Ordering Facility: [facility] Address: [address] [place] [address] Performed By: #### H PVHRT #### [facility] CLIA [id number] [address] [place] [address] [place] PAP TESTon 08-13-2023 ADEQUACY Satisfactory for interpretation Normal [facility] Comment on above: Order Comment: Speci men Type: FLUID SPECIMEN Ordering Facility: [facility] Address: [address] [place] [address] Performed By: #### L [id number] #### [facility] CLIA [id number] [address] [place] [address] [place] CASE REPORT Normal [facility] Comment on above: Order Comment: Speci men Type: FLUID SPECIMEN Ordering Facility: [facility] Address: [address] [place] [address] Result Comment: Gyne cologic Cytology Report Case: [id number] Authorizing Provider: Kiarra Sahni APRN.ADJUNCT PHYSICAL EDUCATION INSTRUCTOR Collected: 08/13/2023 01:28 PM Ordering Location: OB/Gynecology Received: 08/13/2023 04:46 PM First Screen: Cesara, Negar, CT, ASCP Rescreen: Clapacs, Verna Specimen: Pap Test, ThinPrep, Vaginal Performed By: #### L [id number] #### [facility] CLIA [id number] [address] [place] [address] [place] CLINICAL HISTORY, CYTOLOGY, PERSONAL INJURY LITIGATION PARALEGAL Normal [facility] Comment on above: Order Comment: Speci men Type: FLUID SPECIMEN Ordering Facility: [facility] Address: [address] [place] [address] Result Comment: Hist ory of Malignancy (Describe) Hysterectomy, Total adenocarcinoma inSitu Performed By: #### L [id number] #### [facility] CLIA [id number] [address] [place] [address] [place] FINAL PERFORMING LAB Normal [facility] Comment on above: Order Comment: Speci men Type: FLUID SPECIMEN Ordering Facility: [facility] Address: [address] [place] [address] Result Comment: Tech nical component, air brake adjuster screening performed at [facility], [address] [place] [address] CLIA# [id number] Diagnostic interpretation performed at [facility], [address] [place], [place] [id number] CLIA# [id number] Cardiovascular Tech: Neville Keane M.D. Performed By: #### L [id number] #### [facility] CLIA [id number] [address] [place] [address] [place] HPV REFLEX Yes HPV Normal [facility] Comment on above: Order Comment: Speci men Type: FLUID SPECIMEN Ordering Facility: [facility] Address: [address] [place] [address] Performed By: #### L [id number] #### [facility] CLIA [id number] [address] [place] [address] [place] INTERPRETATION, CYTOLOGY, PERSONAL INJURY LITIGATION PARALEGAL Normal [facility] Comment on above: Order Comment: Speci men Type: FLUID SPECIMEN Ordering Facility: [facility] Address: [address] [place] [address] Result Comment: Nega tive for intraepithelial lesion or malignancy. Performed By: #### L [id number] #### [facility] CLIA [id number] [address] [place] [address] [place] LMP Normal [facility] Comment on above: Order Comment: Speci men Type: FLUID SPECIMEN Ordering Facility: [facility] Address: [address] [place] [address] Performed By: #### L [id number] #### [facility] CLIA [id number] [address] [place] [address] [place] PAP DISCLAIMER COMMENT The Pap Smear is a screening test for cervical cancer. False negative results occur with all screening tests, emphasizing the need for rescreening at recommended intervals, and clinical correlation. Normal [facility] Comment on above: Order Comment: Speci men Type: FLUID SPECIMEN Ordering Facility: [facility] Address: [address] [place] [address] Performed By: #### L [id number] #### [facility] CLIA [id number] [facility] [place] [address] [place] PAP BRIM PLATER COMMENT This specimen has be en analyzed by the ThinPrep Imaging System, an automated imaging and review system, which assists the laboratory in evaluating cells on ThinPrep Pap tests. Following automated imaging, selected mantilla from every slide are reviewed by a air brake adjuster. Normal [facility] Comment on above: Order Comment: Speci men Type: FLUID SPECIMEN Ordering Facility: [facility] Address: [address] [place] [address] Performed By: #### L [id number] #### [facility] CLIA [id number] [facility] [place] Basophil percentageon 2021 Chloride [Moles/Vol] 108 mmol/L 98-[address] [facility] Work Phone: [phone] Cholesterol [Mass/Vol] 183 mg/dL <200 [place] [facility] Work Phone: [phone] Comment on above: <200 mg/dL Desirable 200-240 mg/dL Borderline >240 mg/dL High Risk Glucose [Mass/Vol] 94 mg/dL 74-106 [facility] Work Phone: [phone] Potassium [Moles/Vol] 3.8 mmol/L 3.5-5.1 [place] [facility] Work Phone: [phone] Sodium [Moles/Vol] 140 mmol/L 136-145 [facility] Work Phone: [phone] Triglyceride [Mass/Vol] 77 mg/dL <199 [facility] Work Phone: Comment on above: The drugs N-Acetylcy steine and Metamizole may falsely depress this assay.Serum Triglycerides Reference Interval Normal <150 mg/dL Borderline high 150 - 199 mg/dL High 200 - 499 mg/dL Very High > or = 500 mg/dL Laboratory - Chemistry and C hemistry - challengeon 07-17-2022 CO2 [Moles/Vol] 28.0 mmol/L 21.0-32.0 Work Phone: Urea nitrogen/Creatinine [Mass ratio] 12.7 mg/mg 10-20 Work Phone: No Panel Informationon 07-17 Estimated GFR (MDRD) Amer 120 mL/min >60 Work Phone: Comment on above: GFR Calc Estimated GFR (MDRD) Non-Af Amer 99 mL/min >60 Work Phone: Comment on above: Non- GFR Calc Serum or plasma calcium rafael urement (mass/volume)on 07-17-2022 Calcium [Mass/Vol] 8.9 mg/dL 8.5-10.1 [facility] Work Phone: Serum or plasma cholesterol in HDL measurement (mass/volume)on 07-17-2022 Cholesterol in HDL [Mass/Vol] 53 mg/dL >40 Work Phone: Comment on above: The drugs N-Acetylcy steine and Metamizole may falsely depress this assay. Reference Range HDL <40 mg/dL Low HDL Cholesterol HDL >or= 60 mg/dL High HDL Cholesterol Serum or plasma cholesterol in VLDL measurement (mass/volume)on 07-17-2022 Cholesterol in VLDL [Mass/Vol] 15 mg/dL 5-40 Work Phone: Serum or plasma creatinine m easurement (mass/volume)on 07-17-2022 Creatinine [Mass/Vol] 0.71 mg/dL 0.55-1.02 [facility] Work Phone: Comment on above: The validity of the calculated GFR & GFRAA in patients over 70 years has not been determined. Clinical correlation is essential. Serum or plasma low density lipoprotein (LDL) cholesterol measurement (mass/volume)on 07-17-2022 Cholesterol in LDL [Mass/Vol] 115 mg/dL 0-130 Work Phone: Serum or plasma urea nitroge n measurement (mass/volume)on 07-17-2022 Urea nitrogen [Mass/Vol] 9 mg/dL 7-18 Work Phone: Thin prep Papanicolaou smear with manual screeningon 07-17-2022 Thin prep Papanicolaou smear with manual screening 4 5-15 Work Phone: CBCon 04-19-2022 Hematocrit (Bld) [Volume fraction] 40.9 % 35.0 - 47.0 % [facility] Hemoglobin (Bld) [Mass/Vol] 13.5 g/dL 11.7 - 16.0 g/dL [facility] MCH (RBC) [Entitic mass] 27.0 pg 26.0 - 34.0 pg [facility] MCHC (RBC) [Mass/Vol] 33.1 % 32.0 - 36.0 % [facility] MCV (RBC) [Entitic vol] 81.6 fL 79.0 - 98.0 fL [facility] Platelet distribution width (Bld) [Ratio] 14.4 % 11.5 - 14.5 % [facility] Platelet mean volume (Bld) [Entitic vol] 7.6 fL 7.4 - 12.4 fL [facility] Comment on above: MPV is a calculated measurement using platelet volume ratio. Platelets (Bld) [#/Vol] 209 10*3/uL 140 - 440 10*3/uL [facility] RBC (Bld) [#/Vol] 5.01 10*6/uL 3.80 - 5.2 0 10*6/uL [facility] WBC (Bld) [#/Vol] 8.3 10*3/uL 3.6 - 10.7 10*3/uL [facility] Test Performed by [id number] [place] [address] LAB Hemogramon 04-19-2022 Erythrocyte distribution width (RBC) [Ratio] 14.4 % Normal 11.5-14.5 [facility] Comment on above: Performed By: #### H EMOG #### [address] Hematocrit (Bld) [Volume fraction] 40.9 % Normal 35.0-47.0 [facility] Comment on above: Performed By: #### H EMOG #### [address] Hemoglobin (Bld) [Mass/Vol] 13.5 g/dL Normal 11.7-16.0 [facility] Comment on above: Performed By: #### H EMOG #### [address] MCH (RBC) [Entitic mass] 27.0 pg Normal 26.0-34.0 [facility] Comment on above: Performed By: #### H EMOG #### [address] MCHC 33.1 % Normal 32.0-36.0 [facility] Comment on above: Performed By: #### H EMOG #### [address] MCV (RBC) [Entitic vol] 81.6 fL Normal 79.0-98.0 [facility] Comment on above: Performed By: #### H EMOG #### [facility] [address], [place] Platelet mean volume (Bld) [Entitic vol] 7.6 fL Normal 7.4-12.4 [facility] Comment on above: Result Comment: MPV is a calculated measurement using platelet volume ratio. Performed By: #### H EMOG #### [facility] [address], [place] Platelets (Bld) [#/Vol] 209 10*3/uL Normal 140-440 [facility] Comment on above: Performed By: #### H EMOG #### [facility] [address], [place] RBC (Bld) [#/Vol] 5.01 10*6/uL Normal 3.80-5.20 [facility] Comment on above: Performed By: #### H EMOG #### [facility] [address], [place] WBC (Bld) [#/Vol] 8.3 10*3/uL Normal 3.6-10.7 [facility] Comment on above: Performed By: #### H EMOG #### [facility] [address], [place] No Panel Informationon 04-19 [facility] Work Phone: Op Noteon 04-19-2022 Op Note PATIENT: ALINA AVILA ADMISSION DATE: 04/19/2022 SURGERY DATE: 04/19/2022 DATE OF : 1985 AGE: 37 ADMITTING PHYSICIAN: Sixto Levy MD ATTENDING PHYSICIAN: Sixto Levy MD DICTATING PHYSICIAN: Sixto Levy MD OPERATIVE RECORD Procedure: ROBOTIC HYSTERECTOMY WITH BILATERAL SALPINGECTOMY. 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 Anesthesia: General. Description of Procedure: The patient was identified and brought to the operating room. After administration of general anesthetic, underwent abdominoperineal and vaginal prep and drape. A Travis catheter was placed in the bladder, manipulator in the uterus. Time-out had been performed. Antibiotics had been given. Using a knife, a small incision was made in the umbilicus and using the direct technique, a non-bladed trocar was inserted atraumatically in the abdominal cavity. The abdomen was insufflated with CO2 and under direct vision, two blunt da Jen ports were placed in right and left lower quadrant and a 5 mm blunt assistant professor of geography port in the right upper quadrant all under direct vision. Intra-abdominal exploration was normal. Trendelenburg was used to displace the bowel up out of the pelvis and the da Jen was docked. The mesosalpinges were coagulated and divided as was the proximal ovarian ligaments and round ligaments. The bladder was dissected inferiorly allowing the uterine vessels to be skeletonized, coagulated, and divided as were the upper cardinal ligaments down to the top of the SHYAM ring. A 360-degree colpotomy incision was then made and the uterus, cervix, and tubes handed off the field. The vagina was closed using a running 0 V-Loc suture. The pelvis was irrigated. Hemostasis was noted. All instruments were removed through the abdominal cavity. The da Jen was undocked. The trocars removed and the defects in the skin closed with subcuticular 4-0 Monocryl and Dermabond. The Travis was removed with 800 cc of clear urine . The incisions were closed with subcuticular 4-0 Monocryl and Dermabond. Blood loss was minimal. cc: Dr. Cassidy Dow in [facility] Job ID: [id number] Sixto Levy MD DOD:04/19/2022 08:40 P /tanya DOT:04/20/2022 05:33 A Job Number: [id number] Document Number: [id number] cc: Sixto Levy MD [address] [facility] [address] Don Jones MD [address] [place] [address]. [address] [facility] [address] Normal [facility] , urine POCTon 07-0 Beta HCG ( test) Ql (U) Negative Negative [facility] Work Phone: [phone] Lot Number [id number] [facility] Work Phone: Negative QC Pass/Fail Pass [facility] Work Phone: Positive QC Pass/Fail Pass [facility] Work Phone: Surgical Pathologyon 022 Surgical Pathology [id number] [facility] PATHOLOGY AND LABORATORY MEDICINE [address] [place] [id number] FINAL SURGICAL PATHOLOGY REPORT ___ NAME: ALINA AVILA : 1985 37 [facility] NO[facility] [id number] LOCATION: [address] PROCEDURE 04/19/2022 DATE: SURGEON: SIXTO LEVY MD RECEIVED 04/23/2022 DATE: ATTENDING: SIXTO LEVY MD REPORT DATE: 04/24/2022 COPIES TO: ___ DIAGNOSIS: UTERUS, CERVIX, AND TUBES, HYSTERECTOMY WITH BILATERAL SALPINGECTOMY: RESIDUAL CERVICAL ADENOCARCINOMA IN SITU, NEGATIVE MARGINS WEAKLY PROLIFERATIVE/INACTIVE ENDOMETRIUM UNREMARKABLE MYOMETRIUM UNREMARKABLE FALLOPIAN TUBES JAW/JAW Signature> BENNIE DEL ROSARIO M.D. ___ CLINICAL INFORMATION: ACIS, status post CHC SPECIMEN: UTERUS, WITH/WITHOUT TUBES AND OVARIES ___ GROSS DESCRIPTION: Received in formalin labeled "uterus, cervix, bilateral fallopian tubes is a uterus with attached cervix and bilateral fallopian tubes. The uterus and cervix together measures 9.0 x 5.7 x 3.8 cm. The uterus and cervix together weigh 94 g. The serosal surface of the uterus is pink-alvarez and finely wrinkled. Cervical mucosa is glistening smooth pink-alvaerz. The cervical os is gaping, round, and measures 0.7 cm. On transection of the uterus, squamocolumnar junction appears distinct. The endocervical canal measures approximately 1.5 cm in length while the endometrial cavity measures 4.0 cm in length and averages approximately 1.15 cm in width. The endometrium is mantilla with superficial hemorrhage and appears to average 0.1 cm in thickness. Upon transection of the myometrium is slightly trabeculated, contains no bulging mass/lesions. The left fallopian tube measures 6.5 cm in length, 0.7 cm in diameter. Fimbria are identified at the distal end and are free. Upon transection the lumen is identified. The right fallopian tube measures 6 cm in length, 0.6 cm in diameter. Fimbriae are identified at the distal and are free. Upon transection, a pinpoint lumen is identified. Multiple reimbursement representative sections are submitted in 20 cassettes as follows: Cassette Summary: The cervix is removed, opened at 12 o'clock aspect, serially sectioned around a clock-like manner, and entirely submitted sequentially in cassettes A1 through A16. Full thickness section of anterior endometrium/myometrium is submitted in cassette A17. Full thickness section of posterior endometrium/myometrium is submitted in cassette A18. Section of left fallopian tube including all fimbria is submitted in cassette A19. Section of right fallopian tube including all fimbria is submitted in cassette A20. JCK/JAM Disclaimer: The following statement applies to all immunohistochemistry, in situ hybridization, molecular studies, and immunofluorescence testing. The use of one or more reagents in the above tests is regulated as an analyte specific reagent (ASR). These tests were developed and their performance characteristics determined by the clinical laboratories of [facility]. They have not been cleared by the US Food and Drug Administration (FDA). The FDA has determined that such clearance or approval is not necessary. All the above immunostains were performed on paraffin embedded tissue. Appropriate positive and negative controls (where applicable) were run in parallel with the patient's specimen; these controls showed expected staining pattern, with acceptable intensity of staining. Immunohistochemical assays have not been validated on decalcified tissues. Results should be interpreted with caution given the raised possibility of false negativity on decalcified specimens. Professional Performing Location: [address] [address]. DEPARTMENT OF PATHOLOGY AND LABORATORY MEDICINE [place], [place] [address] [email or web address] Normal [facility] TS GELon 04-19-2022 TS GEL ABO Group: A Rh, Gel: NEG Antibody Screen Gel: NEG Normal [facility] Comment on above: Performed By: #### T SGL #### [facility] TYPE AND SCREENon 04-19-2022 ABO Grouping A [facility] Rh Type Negative [facility] Test Performed by [facility], [address] [place] [id number] [place] [address] - [facility] Laboratory - Chemistry and C hemistry - challengeon 03-07-2022 HCG ( test) Ql (U) Negative Work Phone: Comment on above: Very dilute urine sp ecimens, as indicated by a low specificgravity, may not contain reimbursement representative levels of hCG. If is still suspected, a first morning urinespecimen should be collected 48 hours later and tested. Basophil percentageon 2021 WBC (Bld) [#/Vol] 8.6 10*3/uL 4.4-11.0 [facility] Work Phone: Blood erythrocytes count (nu mber/volume)on 03-01-2022 RBC (Bld) [#/Vol] 4.96 10*6/uL 4.2-5.4 [facility] Work Phone: Blood hemoglobin measurement (mass/volume)on 03-01-2022 Hemoglobin (Bld) [Mass/Vol] 13.5 g/dL 12.0-15.0 Work Phone: Blood platelet mean volumeon 03-01-2022 Platelet mean volume (Bld) [Entitic vol] 9.8 fL 6.2-12.0 Work Phone: Determination of erythrocyte mean corpuscular volume (MCV)on 03-01-2022 MCV (RBC) [Entitic vol] 85.1 fL 81-99 [facility] Work Phone: Hematocrit Auto (Bld) [Volum e fraction]on 03-01-2022 Hematocrit (Bld) [Volume fraction] 42.2 % 37-47 Work Phone: INR in Blood by Coagulation assayon 03-01-2022 INR Coag (Bld) [Relative time] 1.0 {INR} Work Phone: Laboratory - Coagulationon 0 03-01-2022 aPTT Coag (Bld) [Time] 27.6 s 24.1-36.2 [facility] Work Phone: PT Coag (PPP) [Time] 12.5 s 11.7-14.9 [facility] Work Phone: Laboratory - Hematology and Cell countson 03-01-2022 Erythrocyte distribution width (RBC) [Entitic vol] 42.9 fL 35.1-43.9 Work Phone: Erythrocyte distribution width (RBC) [Ratio] 13.8 % 11.6-14.6 Work Phone: MCH (RBC) [Entitic mass] 27.2 pg 27.0-32.0 Work Phone: MCHC Auto (RBC) [Mass/Vol]on 03-01-2022 MCHC (RBC) [Mass/Vol] 32.0 g/dL 32-36 [facility] Work Phone: Platelets bldon 03-01-2022 Platelets (Bld) [#/Vol] 239 10*3/uL 150-450 Work Phone: Cervical or vagninal specime n microscopic examination by cytology stain (reported ason 01-11-2022 Cytology report Cyto stain Doc (Cvx/Vag) Comment Work Phone: Comment on above: The Pap smear is a s creening test designed to aid in thedetection of premalignant and malignant conditions of theuterine cervix. It is not a diagnostic procedure andshould not be used as the sole means of detecting cervicalcancer. Both false-positive and false-negative reports dooccur. Detection in cervical specim en of any of human papilloma virus (HPV) 16, 18, 31, 33,on 01-11-2022 HPV 16+18+31+33+35+39+45+51 +52+56+58+59+66+68 DNA Probe+sig amp Ql (Cvx) Positive Negative Work Phone: Comment on above: This nucleic acid am plification test detects fourteen high-risk HPV types (16,18,31,33,35,39,45,51,52,56,58,59,66,68)without differentiation.Performed at: - [facility] [id number] Director: Kayleen Lewis MD, Phone: [phone] at: = - [facility] [address] [id number] Director: Kayleen Lewis MD, Phone: [phone] Laboratory - Cytologyon 12-19 Human Resources Hr Representative Cyto stain Nom (Cvx/Vag) [ID] Comment Work Phone: Comment on above: Salbador Marvin ytotechnologist (ASCP) Pathologist Cyto stain Nom (Cvx/Vag) [ID] Comment Work Phone: Comment on above: Paulette Johnson MD, Pa thologist Recommended follow-up Cyto stain Nom (Cvx/Vag) Comment Work Phone: Comment on above: Suggest colposcopy a nd biopsy if indicated. Laboratory - Miscellaneous t estson 01-11-2022 Service comment (Unsp spec) [Interp] Comment Work Phone: Comment on above: COMMENT:This case wa s seen by members of the Pathology Staff as anintradepartmental consult. This liquid based Th inPrep(R) pap test was screened withthe use of an image guided system. Service comment (Unsp spec) [Interp] . Work Phone: No Panel Informationon 01-11 Pathology report final diagnosis Narrative Comment Work Phone: Comment on above: EPITHELIAL CELL ABNO RMALITY.ATYPICAL ENDOCERVICAL CELLS (AGC), FAVOR NEOPLASTIC.HIGH-GRADE SQUAMOUS INTRAEPITHELIAL LESION (HSIL). R87.619, R87.613 Laboratory - Microbiology an d Antimicrobial susceptibilityon 01-08-2022 SARS-CoV-2 (COVID-19) RNA CARMINE+probe Ql (Unsp spec) Not detected Not Detect Work Phone: Comment on above: Normal Reference Ran ge: Not DetectedMethod:(RT-PCR) real-time reverse transcriptase PCRLuminex COLE Instrument*The Food and Drug Administration (FDA) has issued an Emergency Use Authorization (EAU) for the [employer] SARS-CoV-2 Assay for the rapid detection of the virus that causes COVID-19. This test has been validated, but the FDAs independent review of this validation is pending.*Negative results do not preclude infection and should not be used as the sole basis for treatment or patient management. Optimum specimen types and timing for peak viral levels during infections caused by SARS-CoV-2 have not been determined. Collection of multiple specimens from the same patient may be necessary to detect the virus. The possibility of a false negative result should be considered if the patient has clinical presentation or has had recent exposure. CT DEEP BONE (VERTEBRAL BODY , FEMUR) BIOPSYon 04-10-2021 CT DEEP BONE (VERTEBRAL BODY, FEMUR) BIOPSY EXAM: [facility] CT DEEP BONE (VERTEBRAL BODY, FEMUR) BIOPSY, 04/10/2021 09:16 AM CLINICAL INDICATIONS: MSK Radiologist RELEVANT CLINICAL HISTORY: M89.9:Lesion of right humerus Right proximal humerus lesion biopsy; COMPARISON: PET/CT dated February 27, 2021. MRI dated January 25, 2021. OPERATORS: Aleksandar Vick MD and Giancarlo Sanderson MD PROCEDURE/TECHNIQUE: Consent: Written, informed consent was obtained after explaining the procedure to the patient, including benefits and risks, and answering the patient's questions. Moderate Sedation: I performed Moderate Sedation which included the presence of a nurse that assisted in monitoring the patients level of consciousness and physiological status. After administration of Intravenous Fentanyl 50 mcg and Versed 1 mg, I spent 20 minutes of continuous mcau-sq-heqw time with the patient. Position: The patient was placed on the CT table in supine position, and initial axial images through the region of interest in the right humerus were obtained. A radiopaque marker was then placed,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 Time for 1 Occur rences starting 04/19/2022 until 04/19/2022 End: 04-19-2022 Protime-INR Protime-INR Lab STAT One Time for 1 Occurrences starting 04/19/2022 until 04/19/2022 [facility] Work Phone: Comment on above: One Time for 1 Occur rences starting 04/19/2022 until 04/19/2022 Spirometry panel Incentive alba metry Respiratory Care Routine Q1H PRN until discontinued starting 04/19/2022 [facility] Work Phone: Comment on above: Q1H PRN until discon tinued starting 04/19/2022 End: 09-11-2024 Us transvaginal US FEMALE PELVIS TRANSVAG Radiology Routine Pelvic pain in female 1 Occurrences starting 08/13/2023 until 09/11/2024 [facility] Work Phone: Comment on above: 1 Occurrences starti ng 08/13/2023 until 09/11/2024 Immunizations Immunization Date Immunization Notes Care Provider Russel payne 09-06-2011 tetanus toxoid, redu milka diphtheria toxoid, and acellular pertussis vaccine, adsorbed Kiarra Sahni APRN.ADJUNCT PHYSICAL EDUCATION INSTRUCTOR Work Phone: [facility] Work Phone: 10-20-1997 pneumococcal polysaccharide vaccine, 23 valent Kiarra Sahni APRN.ADJUNCT PHYSICAL EDUCATION INSTRUCTOR Work Phone: [facility] Work Phone: 10-20-[address] Shahana Jones Work Phone: Work Phone: 10-20-1997 pneumococcal vaccine , unspecified formulation Dr. Johana Jean MD Work Phone: Payers Date Payer Category Payer Self-pay 2024 Unknown [id number] 2022 Medicaid [employer] [id number] 2022-Present [phone] [address] [place] [address] Medicaid [id number] 2022 Medicaid [id number] 2014 Unknown [id number] 1987 Unknown [id number] 1987 Unknown [id number] 1987 Unknown [id number] 1987 Unknown [id number] Self-pay SELF PAY INSURANCE [id number] Unknown Unknown [id number] Unknown [id number] Unknown [id number] Unknown [id number] Unknown [id number] Unknown [id number] Unknown [id number] Social History Date Type Detail Facility Start: 01-06-2022 End: 05-27-2022 Tobacco smoking status [facility] Unknown if ever smoked Work Phone: Start: 01-11-2021 None [facility] Start: 01-11-2021 With Family [facility] Start: 1985 Sex Assigned At Female [facility] Start: 06-22-2017 End: 07-19-2024 Tobacco smoking status GAIS Never smoked tobacco [facility] Start: 06-22-2017 Tobacco use and exposure Smokeless tobacco non-user [facility] Work Phone: Start: 04-11-2022 End: 08-13-2023 Alcohol intake Current drinker of alcohol (finding) [facility] Work Phone: Start: 06-22-2017 History SDOH Alcohol Comment occ [facility] Work Phone: Start: 1985 Sex Assigned At Not on file S [facility] Work Phone: Start: 04-01-2022 End: 04-19-2022 Exposure to SARS-CoV-2 (event) Not sure [facility] Work Phone: Start: 08-13-2023 History of Social function [facility] Start: 08-13-2023 Tobacco use panel [facility] National Score (1-100), lower number is lower risk 53 [facility] Medical Equipment Procedure Code Equipment Code Equipment Origin al Text Equipment Identifier Dates Dilation and curettage, uterus, with cold knife cervical cone biopsy Plant polysaccharide haemostatic agent, bioabsorbable ([id number] FDA Start: 03-07-2022 Goals Date Patient Goal Desired Activity /State Mental Status Date Assessment Result Facility 03-07-2022 Cognitive function Voice/Name [facility] Work Phone: Clinical Notes 11-04-2008 to 07-08-2025 Note Date & Type Note Facility 07-08-2025 Evaluation note Diagnosis Onset Date Resolution Dizziness of unknown cause acute July 08, 2025 12:48pm Muscle weakness acute July 08, 2025 12:48pm Anxiety and depression chronic Se ptember 2024 12:48pm Work Phone: 1(721) 888-736809-19-2025 [facility] Internal Medicine [address] [place] [address] [place] [address] OFFICE VISIT Date of Service: 07/08/25 MR#: [id number] Acct: [id number] Name: ALINA AVILA Rep #: [id number] : 1985 Provider: ANNIE Huddleston Age/Sex: 40/F Location: [facility] Status: Signed Intake Vital Signs 03/10/25 16:02 07/08/25 12:56 Height 5 ft 6 in 5 ft 6 in Weight: 193 lb 192 lb BMI 31.1 30.9 BP 118/80 122/72 H Blood Pressure Location Lt brachial Rt brachial Position Sitting Sitting Respiration 16 16 Pulse 97 101 H Pulse Source Monitor Monitor Temp 97.2 F L 98.5 F Temp Source Temporal Temporal Pulse Oximetry (%) 97 98 Oxygen Delivery Method room air room air Intake Visit Reasons: Really bad anxiety Chief Complaint: ANXIETY, increased motion sickness, dizziness Price Economist Required: No Accompanied by: Self Is patient in pain?: No Allergies adhesive Allergy (Verified 07/08/25 12:49) Rash bee venom protein (honey bee) Allergy (Verified 07/08/25 12:49) Anaphylaxis Medications ?Medication ?Instructions ?Recorded ?Confirmed ?Type buspirone 10 mg tablet 10 mg PO BID #180 tabs 09/1307/08/25 Rx escitalopram oxalate 20 mg tablet 20 mg PO DAILY #90 t abs 09/13/24 07/08/25 Rx trazodone 50 mg tablet 50 mg PO QHS #90 tabs 07/08/25 Rx epinephrine 0.3 mg/0.3 mL 0.3 mg (0.3 mL) IM ONCE #2 e a 12/27/24 07/08/25 Rx injection, auto-injector triamcinolone acetonide 0.1 % 1 applic topical BID Bradley h #453.6 03/10/25 07/08/25 Rx topical cream grams Have you fallen in the past year?: No Nurse's Note: concerned about the possibility of having MS not sure what is anxiety and what is symptoms of something else PFSH Medical History Dermatitis Insomnia Anxiety and depression Anemia Kidney stones Hormone deficiency Hypertension IBS (irritable bowel syndrome) Screening for hypercholesterolemia Screening for diabetes mellitus Adenocarcinoma in situ (AIS) of uterine cervix Cystocele Urinary incontinence Pelvic pain Cancer Depression Alcohol use Anxiety Easy bruising Injury of back History of IBS Non-smoker History of edema Palpitations History of melanoma Surgical History H/O breast surgery History of Mohs surgery for squamous cell carcinoma in situ of skin S/P skin biopsy History of hysterectomy Hx of dilation and curettage Hx of exploratory laparotomy Hx laparoscopic cholecystectomy Family History Grandmother , from esophageal cancer Breast cancer, Onset Age: 40 maternal Esophageal cancer Kidney disease Father COPD (chronic obstructive pulmonary disease) Grandmother COPD (chronic obstructive pulmonary disease) CVA (cerebral vascular accident) Uterine cancer Aunt Lung cancer Kidney disease Other Heart disease Social History adopted: No household members: family and children number of children: 1 current occupational status: employed current occupation: [employer] current occupational exposures/hazards: No pets and animals: Yes pets and animals: cat(s) and dog(s) sexually active: No Smoking Status: Never smoker alcohol intake: current alcohol intake frequency: holidays/special occasions only substance use type: does not use caffeine: Yes (2-3) Type: carbonated beverages and coffee what type of physical activity do you participate in: none seatbelt use: always do you feel safe at home: Yes HPI HPI Chief Complaint: ANXIETY, increased motion sickness, dizziness Details: ALINA AVILA, is a 40 F who presents to the office today for evaluation of symptoms of increasedanxiety over the last 2 months. Patient states over the last 2 months she noticed an increase in anxiety as well as increased dizziness at times even when sitting. Also dizzy with motions. She statesshe has alwaysgotten carsick however in the last 2 months she will get extremely nauseous easily even when driving which was unusual for her. She states that usually thenausea ends and dry heaves notvomiting. She has also had difficulty sleeping but has noted that her sleep pattern has changed with being able to sleep duringthe day and being more awake at night. She has not changed her medications for anxiety and states that prior to 2 months ago she was feeling well that her anxiety was in control. In the last 2 weeks she does state that she has had an increase in stress with her father being diagnosed with illnesses severe and herdog passing away. However her symptoms have been ongoing pr eviously. She states she feels like everything is in overdrive and has difficulty sleeping. She hasnot had medication changes. The patient did have shingles previously prior to the onset of the symptoms. She has an aunt with multiple sclerosis patient is concerned that her symptoms of dizziness aswell as muscle weakness could be signs of MS. She states she recently had difficulty opening a jar of pickles and she has never had difficulty doing these things. She is tearful while giving this information as she is worried about chronic illness as her aunt went downhill very quickly and was in awheelchair with her disease. No other concerns at this time. ROS Const Constitutional: No body ache, excessive sweating, fatigue, fever(s), frequent falls, headache(s), snoring, weakness, weight change, sleep problems or change in appetite Eyes Eyes: No blurry vision, change in vision, eye pain or Light sensitivity ENT ENT: No abnormal hearing, ear or mastoid pain, tinnitus, nasal congestion, headache(s), neck pain or sore throat Resp Respiratory: No cough, shortness of breath, snoring or wheezing Cardio Cardiology: No chest pain at rest, chest pain with exertion, excessive sweating,shortness of breath, dyspnea on exertion, lightheadedness, orthopnea or palpitations Gastro GI: No abdominal pain, change in bowel habits, constipation, cramping, diarrhea,nausea/dyspepsia orvomiting Genitourinary-Female: No burning urination, painful urination, urinary incontinence, urinary frequency, blood in urine, abnormal periods or pelvic pain Musc Musculoskeletal: No abnormal gait, joint pain, back pain, limited range of motion, neck pain, numbness, stiffness, tingling or Arthritis Skin Skin: No dry skin, redness, lesions, itchy eyes, rash or wounds Neuro Neurology: No abnormal gait, abnormal hearing, abnormal speech, dizziness, weakness, frequent falls, headache(s), memory loss, numbness or tingling Psych Psychiatric: No anxiety, No change in appetite, No depression, No memory loss and No Thoughts of harming yourself/Others Endo Endocrine: No cold intolerance, excessive sweating, fatigue, flushing, heat intolerance, increased thirst/drinking, increased hunger or weight change Aller/Imm Allergy/Immunologic: No itchy eyes, seasonal allergy symptoms, hives or wheezing Khoi/Lymp Hematologic/Lymphatic: No easy bleeding, easy bruising or enlarged lymph nodes Exam Const General: cooperative, no acute distress, well groomed and well hydrated Nutritional Appearance: well nourished Orientation: alert and oriented x3 HENMT Head: normal to inspection Ears: hearing grossly normal bilaterally Nose: external nose normal and nares normal Face and sinus: normal facial exam Mouth: oral mucosae normal, lip normal and moist mucous membranes Eyes General: appearance normal, both eyes and all related structures Pupils: PERRL Neck Neck: normal visual inspection, no lymphadenopathy and trachea midline Thyroid: diffusely enlarged Lymphatic: no lymphadenopathy noted Chest Chest palpation & inspection: normal inspection of the chest Resp Effort & Inspection: normal respiratory effort, able to speak in complete sentences and symmetric chest movement Auscultation: Bilateral: Clear to Auscultation Cardio Palpation: normal PMI Rate: regular rate Rhythm: regular rhythm Heart Sounds: S1 normal and S2 normal Pulses: radial pulses present GI Inspection: normal to inspection Auscultation: normal bowel sounds Palpation: soft and nontender Musc Musculoskeletal: No joint tenderness, joint redness or muscle weakness Skin General: no rashes or lesions noted Lesions: no lesions Rashes: no rashes Trauma: no lacerations or abrasions Wounds: no wounds Neuro General: patient alert, patient oriented x3 and deep tendon reflexes 2+ bilaterally Speech: speech normal Motor: muscle tone normal throughout Extrem General: normal to inspection and capillary refill normal Psych Appearance: grossly normal and well kempt Coding Level of Care Code Established Pt Off vis,est,level 4 Patient Type Established History Expanded Problem Focused Medical Decision Making Moderate Complexity Diagnoses Dizziness of unknown cause R42 Muscle weakness M62.81 Anxiety and depression F41.9; F32.A Time Spent (min) 35 Assessment and Plan Assessment and Plan (1) Dizziness of unknown cause: Status: Acute Plan: Differential of increased anxiety versus other cause including possible MS. Will evaluate with labsfor autoimmune disease. Will refer to neurology if needed. (2) Muscle weakness: Status: Acute Plan: As above. (3) Anxiety and depression: Status: Chronic Plan: Patient had been stable with treatment prior. Patient states she feels more anxious due to worry for chronic illness. Will evaluate and if tests negative will look at anxiety medication. Patient is currently on buspirone 10 mg twice daily this could be increased if needed. Orders: Orders KIM w/ Reflex Mult Confirm Today F32.A - Depression, unspecified, F41.9 - Anxiety disorder, unspecified, M62.81 - Muscle weakness (generalized), R42 - Dizziness and giddiness CBC W/Diff, Automated Today F32.A - Depression, unspecified, F41.9 - Anxiety disorder, unspecified,M62.81 - Muscle weakness (generalized), R42 - Dizziness and giddiness CRP Today F32.A - Depression, unspecified, F41.9 - Anxiety disorder, unspecified, M62.81 - Muscle weakness (generalized), R42 - Dizziness and giddiness Comprehensive Metabolic Profil Today F32.A - Depression, unspecified, F41.9 - Anxiety disorder, unspecified, M62.81 - Muscle weakness (generalized), R42 - Dizziness and giddiness Thyroid Stim Hormone (TSH) Today F32.A - Depression, unspecified, F41.9 - Anxiety disorder, unspecified, M62.81 - Muscle weakness (generalized), R42 - Dizziness and giddiness Free T4 Today F32.A - Depression, unspecified, F41.9 - Anxiety disorder, unspecified, M62.81 - Muscle weakness (generalized), R42 - Dizziness and giddiness Vitamin B12 Today F32.A - Depression, unspecified, F41.9 - Anxiety disorder, unspecified, M62.81 - Muscle weakness (generalized), R42 - Dizziness and giddiness Rheumatoid Factor Today M62.81 - Muscle weakness (generalized), R42 - Dizzinessand giddiness Plan Details Follow Up: As needed Clinical Quality Measures Falls Risk Screening/Assistive Devices Have you fallen in the past year?: No 07/08/25 1339 er SHIELD RUNNER-C> Date _ Nallely Huddleston SHIELD RUNNER-C Cosigner Signature: Date (if applicable) CC: ~ [facility]05-09-2025 Evaluation note* Diagnosis Onset Date Resolution Status Admit Date Shingles acute February 25, 2025 1:47pm Dermatitis acute March 10, 2025 3:48pm Shingles acute March 10, 2025 3:48pm Anxiety and depression chronic Ma y 2024 3:48pm Insomnia chronic March 10, 2025 3:48pm Work Phone: 1([phone]) 155-670110-25-2023 NoteHNO ID: [id number] Author: Kiarra Sahni APRN.ADJUNCT PHYSICAL EDUCATION INSTRUCTOR Service: ? Author Type: Nurse Practitioner Type: Progress Notes Filed: 08/13/2023 4:28 PM Note Text: Child Care offered: Patient declines. Alina is a 38 year old who presents for an annual gynecologic exam with complaints, of pain of the right lower quadrant and stress incontinence . Menses: no menses - hysterectomy with BS for AIS 04/2022 Contraception: hysterectomy HPV vaccine: No History of abnormal pap: Yes 2020 abnormal, AIS diagnosis Last mammogram: 1-[address] [facility]. Pt. Thinks she was supposed to have follow up, but mammogram was BIRADS 1 Sexually active: No History of STDS: chlamydia [address] Dr[address] Levy note from 05/03/2022 DIAGNOSIS: UTERUS, CERVIX, AND TUBES, HYSTERECTOMY WITH BILATERAL SALPINGECTOMY: RESIDUAL CERVICAL ADENOCARCINOMA IN SITU, NEGATIVE MARGINS WEAKLY PROLIFERATIVE/INACTIVE ENDOMETRIUM UNREMARKABLE MYOMETRIUM UNREMARKABLE FALLOPIAN TUBES 02/01/2022 [facility] mammogram COMPARISON: Comparison is made with prior study dated 01/23/2017. FINDINGS: Breast Composition: The breasts are extremely dense, which lowers the sensitivity of mammography. There are no dominant masses or suspicious calcifications. No other significant abnormalities are identified. There has been no significant change since the prior study. OB History T1 L1 SAB0 IAB0 Ectopic0 Multiple0 Live Births0 Manager Services History LMP: 01/25/2014, Having periods Age at Menarche: Age at First : Age at Menopause: Manager Services History Comments: Sexual Activity: Yes; Male Contraception: Condom PAST MEDICAL HISTORY Diagnosis Date Anxiety Anxiety with Depression Depression HTN (hypertension) resolved Melanoma of skin, site unspecified 1999 Malignant melanoma/Lesion taken off back PAST SURGICAL HISTORY Procedure Laterality Date CATH AND SALINE/CONTRAST SONOHYSTER/HYSTEROSALPI HYSTEROSCOPY 2013 normal LAPS ABD PRTMANDOMENTUM DX W/WO SPEC BR/WA SPX 2009 Laparoscopy LAPS SURG CHOLECYSTECTOMY W/CHOLANGIOGRAPHY 10/29/13 Normal IOC PAST SURGICAL HISTORY OF 1999 melanoma/Lesion taken off back UNSPECIFIED ORAL SURGERY PROCEDURE, BY REPORT FAMILY HISTORY Problem Relation Age of Onset No Known Problems Mother Hypertension Father Anxiety disorder Father COPD Father Depression Father Anxiety disorder Brother Depression Brother Anxiety disorder Brother Depression Brother Hypertension Maternal Grandmother Cancer Maternal Grandmother Uterine Osteoporosis Maternal Grandmother Heart Maternal Grandmother Anxiety disorder Maternal Grandfather Depression Maternal Grandfather COPD Maternal Grandfather Emphysema Maternal Grandfather Cancer Paternal Grandmother Heart Paternal Grandmother Dementia Paternal Grandfather Heart Maternal Aunt Maternal Great Aunt Diabetes Maternal Aunt Maternal Great Aunt Colon Cancer Other none Diabetes Other none Coronary Artery Disease Other none SOCIAL HISTORY Social History Tobacco Use Smoking status: Never Smokeless tobacco: Never Substance Use Topics Alcohol use: Yes Comment: Occasionally Drug use: No Comment: none REVIEW OF SYSTEMS Abdomen: No abdominal pain, nausea, vomiting, diarrhea, or constipation. No bloating, early satiety, indigestion, or increased flatulence. Bladder: No dysuria, gross hematuria, urinary frequency, urinary urgency + stress incontience Breast: No breast lumps, nipple d/c, overlying skin changes, redness or skin retraction. Allergies and current medication updated:Yes EXAM: BP 118/78 Ht 5' 6.25" (1.68m) Wt 192 lb (87.1kg) LMP 04/19/2022 BMI 30.75 kg/(m2). GENERAL: pleasant, female in no apparent distress HEENT: Normocephalic, atraumatic, mucus membranes moist, and no lesions NECK: Supple, full range of motion, no adenopathy, and thyroid normal DERMATOLOGY: Normal, without lesions, non-icteric, and non-hirsute BREAST: soft, non-tender, symmetric, no dominant mass, normal nipple-areolar complex, no lymphadenopathy, and no nipple discharge CHEST: Normal inspiratory effort ABDOMEN: soft, no masses + rebound tenderness to right lower quadrant PELVIC: external genitalia normal, normal Bartholin's glands, urethra, [place]'s glands, no vulvar lesions, good vaginal support, physiologic discharge present, normal appearing perineal body and perianal region, cystocele 1st degree BIMANUAL: uterus surgically absent, no adnexal masses, and non-tender. + tenderness with palpation to right lower quadrant RECTOVAGINAL: deferred. NEURO: alert and oriented x3,exam grossly non-focal EXTREMITIES: normal ASSESSMENT/PLAN: 1) Health maintenance: Pap done with HPV. Plan for 3 annual paps and then q 3 years for 25 years. Nutrition, exercise and routine health maintenance exams reviewed. 2) Contraception: hysterectomy. 3) STD screening: Declined STD check. 4) F (more content not included)...[facility]10-25-2023 Instructions* Patient Instructions* Jerri Patten APRN.ADJUNCT PHYSICAL EDUCATION INSTRUCTOR - 08/13/2023 10:29 AM EDT TIPS ON PRACTICING PELVIC FLOOR (KEGEL) EXERCISES How to identify the correct muscle? 1. To find the correct muscle, place your finger inside your vagina or rectum. Try to squeeze around your finger. That is the muscle you want to exercise! This muscle is the same one that you use to hold back gas or a bowel movement. 2. Remember!! Never use your stomach, legs, or buttock muscles. The most common mistake is using too many muscles. To find out if you are also cary your stomach muscles, place your hand on your abdomen while you squeeze your pelvic floor muscle. If you feel your abdomen move, then you are also moving these muscles. 3. These exercises can be practiced anytime, in any place. Since this muscle is internal, no one can see you exercising this muscle. How do I perform the exercise? 1. Squeeze the muscle which you identified earlier. Squeeze and hold for 10 seconds, then relax for10 second period. IT IS JUST IMPORTANT TO RELAX IT IS TO CONTRACT THIS MUSCLE! 2. Perform 15 exercises in the morning, 15 in the afternoon, 20 at night. You can also do them for 10 minutes, 3 times a day. Try to work up to doing 25 exercises at one time. When you first begin toexercise these muscles, your muscle may tire easily and you may not be able to contract and squeezeof 10 seconds. However, slowly over a 2 week period, you will build to 10 second contractions. When will I notice a change? In approximately 2 weeks of consistent daily exercises, you will notice less accidents (incontinence and leakage). In one month, you will see an even bigger difference. Can these exercises harm me? No! These exercises cannot harm you in any way. Most patients find them relaxing and easy. If you get back or stomach pain after you exercise, then you are rare probably trying too hard and using stomach and/or back muscles. Go back and find the muscle and remember this exercise should feel mild and easy. Remember to focus on relaxation, as well as contraction of the muscle. In the time, you will learn to practice effortlessly. Eventually, work these exercises in as part of your lifestyle, likebrushing your teeth or eating a meal. This will help you to remain successful for a lifetime! If you have any other questions or concerns, please do not hesitate to call. [facility] Section of Voiding Dysfunction & Female Urology [address] [address] [facility] History of Present illness Narrative* Kiarra Sahni APRN.CHAPO - 08/13/2023 9:16 AM EDT Child Care offered: Patient declines. Alina is a 38 year old who presents for an annual gynecologic exam with complaints, of pain of the right lower quadrant and stress incontinence . Menses: no menses - hysterectomy with BS for AIS 04/2022 Contraception: hysterectomy HPV vaccine: No History of abnormal pap: Yes 2020 abnormal, AIS diagnosis Last mammogram: 1-[address] [facility]. Pt. Thinks she was supposed to have follow up, but mammogram was BIRADS 1 Sexually active: No History of STDS: chlamydia [address] Levy note from 05/03/2022 DIAGNOSIS: UTERUS, CERVIX, AND TUBES, HYSTERECTOMY WITH BILATERAL SALPINGECTOMY: RESIDUAL CERVICAL ADENOCARCINOMA IN SITU, NEGATIVE MARGINS WEAKLY PROLIFERATIVE/INACTIVE ENDOMETRIUM UNREMARKABLE MYOMETRIUM UNREMARKABLE FALLOPIAN TUBES 02/01/2022 [facility] mammogram COMPARISON: Comparison is made with prior study dated 01/23/2017. FINDINGS: Breast Composition: The breasts are extremely dense, which lowers the sensitivity of mammography. There are no dominant masses or suspicious calcifications. No other significant abnormalities are identified. There has been no significant change since the prior study. OB History T1 L1 SAB0 IAB0 Ectopic0 Multiple0 Live Births0 Manager Services History LMP: 01/25/2014, Having periods Age at Menarche: Age at First : Age at Menopause: Manager Services History Comments: Sexual Activity: Yes; Male Contraception: Condom PAST MEDICAL HISTORY Diagnosis Date Anxiety Anxiety with Depression Depression HTN (hypertension) resolved Melanoma of skin, site unspecified 1999 Malignant melanoma/Lesion taken off back PAST SURGICAL HISTORY Procedure Laterality Date CATH & SALINE/CONTRAST SONOHYSTER/HYSTEROSALPI HYSTEROSCOPY 2013 normal LAPS ABD PRTM&OMENTUM DX W/WO SPEC BR/WA SPX 2009 Laparoscopy LAPS SURG CHOLECYSTECTOMY W/CHOLANGIOGRAPHY 10/29/13 Normal IOC PAST SURGICAL HISTORY OF 1999 melanoma/Lesion taken off back UNSPECIFIED ORAL SURGERY PROCEDURE, BY REPORT FAMILY HISTORY Problem Relation Age of Onset No Known Problems Mother Hypertension Father Anxiety disorder Father COPD Father Depression Father Anxiety disorder Brother Depression Brother Anxiety disorder Brother Depression Brother Hypertension Maternal Grandmother Cancer Maternal Grandmother Uterine Osteoporosis Maternal Grandmother Heart Maternal Grandmother Anxiety disorder Maternal Grandfather Depression Maternal Grandfather COPD Maternal Grandfather Emphysema Maternal Grandfather Cancer Paternal Grandmother Heart Paternal Grandmother Dementia Paternal Grandfather Heart Maternal Aunt Maternal Great Aunt Diabetes Maternal Aunt Maternal Great Aunt Colon Cancer Other none Diabetes Other none Coronary Artery Disease Other none SOCIAL HISTORY Social History Tobacco Use Smoking status: Never Smokeless tobacco: Never Substance Use Topics Alcohol use: Yes Comment: Occasionally Drug use: No Comment: none REVIEW OF SYSTEMS Abdomen: No abdominal pain, nausea, vomiting, diarrhea, or constipation. No bloating, early satiety, indigestion, or increased flatulence. Bladder: No dysuria, gross hematuria, urinary frequency, urinary urgency + stress incontience Breast: No breast lumps, nipple d/c, overlying skin changes, redness or skin retraction. Allergies and current medication updated:Yes EXAM: BP 118/78 Ht 5' 6.25" (1.68m) Wt 192 lb (87.1kg) LMP 04/19/2022 BMI 30.75 kg/(m^2). GENERAL: pleasant, female in no apparent distress HEENT: Normocephalic, atraumatic, mucus membranes moist, and no lesions NECK: Supple, full range of motion, no adenopathy, and thyroid normal DERMATOLOGY: Normal, without lesions, non-icteric, and non-hirsute BREAST: soft, non-tender, symmetric, no dominant mass, normal nipple-areolar complex, no lymphadenopathy, and no nipple discharge CHEST: Normal inspiratory effort ABDOMEN: soft, no masses + rebound tenderness to right lower quadrant PELVIC: external genitalia normal, normal Bartholin's glands, urethra, [place]'s glands, no vulvar lesions, good vaginal support, physiologic discharge present, normal appearing perineal body and perianal region, cystocele 1st degree BIMANUAL: uterus surgically absent, no adnexal masses, and non-tender. + tenderness with palpation to right lower quadrant RECTOVAGINAL: deferred. NEURO: alert and oriented x3,exam grossly non-focal EXTREMITIES: normal ASSESSMENT/PLAN: 1) Health maintenance: Pap done with HPV. Plan for 3 annual paps and then q 3 years for 25 years. Nutrition, exercise and routine health maintenance exams reviewed. 2) Contraception: hysterectomy. 3) STD screening: Declined STD check. 4) Follow up one year or sooner as needed 4. Pelvic pain in female - ICD9: 625.9, ICD10: R10.2 - Rebound tenderness to right lower quadrant - Present since surgery per patient - No nausea, vomiting, fever or signs of acute concern - To go to ER if these symptoms develop. Patient verbalizes understanding - US FEMALE PELVIS TRANSVAG 5. History of cyst of breast - ICD9: V13.3, ICD10: Z87.2 - Pt. Had normal mammogram with [facility] in 2021, but thinks she was supposed to have a follow up for breast cyst and enlarged lymph node. - [facility] 6. Cystocele, midline - ICD9: 618.01, ICD10: N81.11 - 1st degree - Kegel exercises and weight loss recommended as 1st line - Consider pelvic floor therapy - To rediscuss at follow up Medical Decision Making: Problems: Low: Acute, uncomplicated illness or injury Data: Unique source(s) for external note(s) reviewed: 1 Unique test(s) ordered: 1 Risk: Minimal: Minimal risk from testing/treatment Medical Decision Making Level: 3 - Low MARIANNE Mohr APRN.CNP [facility] History of Present illness Narrative* Stephanie Torres RN - 04/19/2022 4:45 PM EDT Ambulated to bathroom with 2 assists documented in this encounterSUMMA Work Phone: [phone] Hospital Discharge instructions* Instructions* Arturo Maria MD - 04/19/2022 Please follow your post operative care instructions given to you by your Senior Embedded Software Engineer Oncologist's office at your pre operative visit. Please call the office with questions or concerns and be sure to follow up at your scheduled post operative visit. documented in this [facility] Work Phone: [phone] NotePap Smear Specimen AdequacyMarch 2021 11:30amCommentSatisfactory for evaluation. Endocervical and/or squamous metaplasticcells (endocervical component)are present.[facility] A#[id number] Work Phone: Comment on above:Satisfactory for evaluation. Endocervical and/or squamous metaplasticcells (endocervical component)are present.01-11-2022 NotePap Smear Specimen AdequacyMarch 2021 11:30am CommentSatisfactory for evaluation. Endocervical and/or squamous metaplasticcells (endocervical component)are present.[facility] A#[id number] Work Phone: Comment on above:Satisfactory for evaluation. Endocervical and/or squamous metaplasticcells (endocervical component)are present.01-11-2022 NotePap Smear Specimen AdequacyMarch 2021 11:30am CommentSatisfactory for evaluation. Endocervical and/or squamous metaplasticcells (endocervical component)are present.[facility] A#[id number] Work Phone: Comment on above:Satisfactory for evaluation. Endocervical and/or squamous metaplasticcells (endocervical component)are present.11-04-2008 History of Past illness Narrative* Problem Noted Date Diagnosed Date Resolved Date Routine general medical exam ination at a health care facility 11/04/2008 2014 Overview: 11/04/08 (formerly [facility]) Routine gynecological examination 11/04/2008 2014 [facility] (statuses as of 08/14/2023) [facility] note* Diagnosis Onset Date Resolution Status URI (upper respiratory infection) acute Work Phone: evaluation note* Diagnosis Onset Date Resolution Status URI (upper respiratory infection) acute Atypical glandular cells, fa vor neoplasia on cervical Pap smear acute Work Phone: Evaluation note* Diagnosis S/P hysterectomy- Primary Acquired absence of both cervix and uterus 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 [facility] Work Phone: [facility] note* Diagnosis Onset Date Resolution Status Atypical glandular cells, fa vor neoplasia on cervical Pap smear acute Work Phone: Evaluation noteNo assessment information available Work Phone: Evaluation note* Diagnosis Encounter for gynecological examination with abnormal finding- Primary Routine gynecological examination Encounter for screening for human papillomavirus (HPV) Special screening examination for human papillomavirus (HPV) Encounter for screening for malignant neoplasm of vagina Special screening for malignant neoplasms, vagina Pelvic pain in female Unspecified symptom associated with female genital organs History of cyst of breast Personal history of diseases of skin and subcutaneous tissue Cystocele, midline 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 documented in this encounter [facility] note* Diagnosis Onset Date Resolution Status Admit Date Dizziness of unknown cause acute July 08, 2025 12:48pm Muscle weakness acute July 08, 2025 12:48pm Anxiety and depression chronic Se ptember 2024 12:48pm [facility] Work Phone: Progress note Author Nallely Huddleston [facility] Note Date/Time July 08, 2025 1:36pm [facility] [address] [place] [address] [place] [address] OFFICE VISIT Date of Service: 07/08/25 MR#: [id number] Acct: [id number] Name: ALINA AVILA Rep #: [id number] : 1985 Provider: SHIELD RUNNER-C Je ssica Ungerer Age/Sex: 40/F Location: [facility] Status: Signed Intake Vital Signs 03/10/25 16:02 07/08/25 12:56 Height 5 ft 6 in 5 ft 6 in Weight: 193 lb 192 lb BMI 31.1 30.9 BP 118/80 122/72 H Blood Pressure Location Lt brachial Rt brachial Position Sitting Sitting Respiration 16 16 Pulse 97 101 H Pulse Source Monitor Monitor Temp 97.2 F L 98.5 F Temp Source Temporal Temporal Pulse Oximetry (%) 97 98 Oxygen Delivery Method room air room air Intake Visit Reasons: Really bad anxiety Chief Complaint: ANXIETY, increased motion sickness, dizziness Price Economist Required: No Accompanied by: Self Is patient in pain?: No Allergies adhesive Allergy (Verified 07/08/25 12:49) Rash bee venom protein (honey bee) Allergy (Verified 07/08/25 12:49) Anaphylaxis Medications ?Medication ?Instructions ?Recorded ?Confirmed ?Type buspirone 10 mg tablet 10 mg PO BID #180 tabs 09/1307/08/25 Rx escitalopram oxalate 20 mg tablet 20 mg PO DAILY #90 t abs 09/13/24 07/08/25 Rx trazodone 50 mg tablet 50 mg PO QHS #90 tabs 07/08/25 Rx epinephrine 0.3 mg/0.3 mL 0.3 mg (0.3 mL) IM ONCE #2 e a 12/27/24 07/08/25 Rx injection, auto-injector triamcinolone acetonide 0.1 % 1 applic topical BID Bradley h #453.6 03/10/25 07/08/25 Rx topical cream grams Have you fallen in the past year?: No Nurse's Note: concerned about the possibility of having MS not sure what is anxiety and what is symptoms of something else PFSH Medical History Dermatitis Insomnia Anxiety and depression Anemia Kidney stones Hormone deficiency Hypertension IBS (irritable bowel syndrome) Screening for hypercholesterolemia Screening for diabetes mellitus Adenocarcinoma in situ (AIS) of uterine cervix Cystocele Urinary incontinence Pelvic pain Cancer Depression Alcohol use Anxiety Easy bruising Injury of back History of IBS Non-smoker History of edema Palpitations History of melanoma Surgical History H/O breast surgery History of Mohs surgery for squamous cell carcinoma in situ of skin S/P skin biopsy History of hysterectomy Hx of dilation and curettage Hx of exploratory laparotomy Hx laparoscopic cholecystectomy Family History Grandmother , from esophageal cancer Breast cancer, Onset Age: 40 maternal Esophageal cancer Kidney disease Father COPD (chronic obstructive pulmonary disease) Grandmother COPD (chronic obstructive pulmonary disease) CVA (cerebral vascular accident) Uterine cancer Aunt Lung cancer Kidney disease Other Heart disease Social History adopted: No household members: family and children number of children: 1 current occupational status: employed current occupation: [employer] current occupational exposures/hazards: No pets and animals: Yes pets and animals: cat(s) and dog(s) sexually active: No Smoking Status: Never smoker alcohol intake: current alcohol intake frequency: holidays/special occasions only substance use type: does not use caffeine: Yes (2-3) Type: carbonated beverages and coffee what type of physical activity do you participate in: none seatbelt use: always do you feel safe at home: Yes HPI HPI Chief Complaint: ANXIETY, increased motion sickness, dizziness Details: ALINA AVILA, is a 40 F who presents to the office today for evaluation of symptoms of increased anxiety over the last 2 months. Patient states over the last 2 months she noticed an increase in anxiety as well as increased dizziness at times even when sitting. Also dizzy with motions. She states she has alwaysgotten carsick however in the last 2 months she will get extremely nauseous easily even when driving which was unusual for her. She states that usually thenausea ends and dry heaves not vomiting. She has also had difficulty sleeping but has noted that her sleep pattern has changed with being able to sleep duringthe day and being more awake at night. She has not changed her medications for anxiety and states that prior to 2 months ago she was feeling well that her anxiety was in control. In the last 2 weeks she does state that she has had an increase in stress with her father being diagnosed with illnesses severe and herdog passing away. However her symptoms have been ongoing previously. She states she feels like everything is in overdrive and has difficulty sleeping. She has not had medication changes. The patient did have shingles previously prior to the onset of the symptoms. She has an aunt with multiple sclerosis patient is concerned that her symptoms of dizziness as well as muscle weakness could be signs of MS. She states she recently had difficulty opening a jar of pickles and she has never had difficulty doing these things. She is tearful while giving this information as she is worried about chronic illness as her aunt went downhill very quickly and was in a wheelchair with her disease. No other concerns at this time. ROS Const Constitutional: No body ache, excessive sweating, fatigue, fever(s), frequent falls, headache(s), snoring, weakness, weight change, sleep problems or change in appetite Eyes Eyes: No blurry vision, change in vision, eye pain or Light sensitivity ENT ENT: No abnormal hearing, ear or mastoid pain, tinnitus, nasal congestion, headache(s), neck pain or sore throat Resp Respiratory: No cough, shortness of breath, snoring or wheezing Cardio Cardiology: No chest pain at rest, chest pain with exertion, excessive sweating,shortness of breath, dyspnea on exertion, lightheadedness, orthopnea or palpitations Gastro GI: No abdominal pain, change in bowel habits, constipation, cramping, diarrhea,nausea/dyspepsia or vomiting Genitourinary-Female: No burning urination, painful urination, urinary incontinence, urinary frequency, blood in urine, abnormal periods or pelvic pain Musc Musculoskeletal: No abnormal gait, joint pain, back pain, limited range of motion, neck pain, numbness, stiffness, tingling or Arthritis Skin Skin: No dry skin, redness, lesions, itchy eyes, rash or wounds Neuro Neurology: No abnormal gait, abnormal hearing, abnormal speech, dizziness, weakness, frequent falls, headache(s), memory loss, numbness or tingling Psych Psychiatric: No anxiety, No change in appetite, No depression, No memory loss and No Thoughts of harming yourself/Others Endo Endocrine: No cold intolerance, excessive sweating, fatigue, flushing, heat intolerance, increased thirst/drinking, increased hunger or weight change Aller/Imm Allergy/Immunologic: No itchy eyes, seasonal allergy symptoms, hives or wheezing Khoi/Lymp Hematologic/Lymphatic: No easy bleeding, easy bruising or enlarged lymph nodes Exam Const General: cooperative, no acute distress, well groomed and well hydrated Nutritional Appearance: well nourished Orientation: alert and oriented x3 HENMT Head: normal to inspection Ears: hearing grossly normal bilaterally Nose: external nose normal and nares normal Face and sinus: normal facial exam Mouth: oral mucosae normal, lip normal and moist mucous membranes Eyes General: appearance normal, both eyes and all related structures Pupils: PERRL Neck Neck: normal visual inspection, no lymphadenopathy and trachea midline Thyroid: diffusely enlarged Lymphatic: no lymphadenopathy noted Chest Chest palpation & inspection: normal inspection of the chest Resp Effort & Inspection: normal respiratory effort, able to speak in complete sentences and symmetric chest movement Auscultation: Bilateral: Clear to Auscultation Cardio Palpation: normal PMI Rate: regular rate Rhythm: regular rhythm Heart Sounds: S1 normal and S2 normal Pulses: radial pulses present GI Inspection: normal to inspection Auscultation: normal bowel sounds Palpation: soft and nontender Musc Musculoskeletal: No joint tenderness, joint redness or muscle weakness Skin General: no rashes or lesions noted Lesions: no lesions Rashes: no rashes Trauma: no lacerations or abrasions Wounds: no wounds Neuro General: patient alert, patient oriented x3 and deep tendon reflexes 2+ bilaterally Speech: speech normal Motor: muscle tone normal throughout Extrem General: normal to inspection and capillary refill normal Psych Appearance: grossly normal and well kempt Coding Level of Care Code Established Pt Off vis,est,level 4 Patient Type Established History Expanded Problem Focused Medical Decision Making Moderate Complexity Diagnoses Dizziness of unknown cause R42 Muscle weakness M62.81 Anxiety and depression F41.9; F32.A Time Spent (min) 35 Assessment and Plan Assessment and Plan (1) Dizziness of unknown cause: Status: Acute Plan: Differential of increased anxiety versus other cause including possible MS. Will evaluate with labs for autoimmune disease. Will refer to neurology if needed. (2) Muscle weakness: Status: Acute Plan: As above. (3) Anxiety and depression: Status: Chronic Plan: Patient had been stable with treatment prior. Patient states she feels more anxious due to worry for chronic illness. Will evaluate and if tests negative will look at anxiety medication. Patient is currently on buspirone 10 mg twice daily this could be increased if needed. Orders: Orders KIM w/ Reflex Mult Confirm Today F32.A - Depression, unspecified, F41.9 - Anxiety disorder, unspecified, M62.81 - Muscle weakness (generalized), R42 - Dizziness and giddiness CBC W/Diff, Automated Today F32.A - Depression, unspecified, F41.9 - Anxiety disorder, unspecified, M62.81 - Muscle weakness (generalized), R42 - Dizziness and giddiness CRP Today F32.A - Depression, unspecified, F41.9 - Anxiety disorder, unspecified, M62.81 - Muscle weakness (generalized), R42 - Dizziness and giddiness Comprehensive Metabolic Profil Today F32.A - Depression, unspecified, F41.9 - Anxiety disorder, unspecified, M62.81 - Muscle weakness (generalized), R42 - Dizziness and giddiness Thyroid Stim Hormone (TSH) Today F32.A - Depression, unspecified, F41.9 - Anxiety disorder, unspecified, M62.81 - Muscle weakness (generalized), R42 - Dizziness and giddiness Free T4 Today F32.A - Depression, unspecified, F41.9 - Anxiety disorder, unspecified, M62.81 - Muscle weakness (generalized), R42 - Dizziness and giddiness Vitamin B12 Today F32.A - Depression, unspecified, F41.9 - Anxiety disorder, unspecified, M62.81 - Muscle weakness (generalized), R42 - Dizziness and giddiness Rheumatoid Factor Today M62.81 - Muscle weakness (generalized), R42 - Dizzinessand giddiness Plan Details Follow Up: As needed Clinical Quality Measures Falls Risk Screening/Assistive Devices Have you fallen in the past year?: No 07/08/25 3835 <Electronically signed by Nallely VALENCIA> Date _ Nallely VALENCIA Cosigner Signature: Date (if applicable) CC: ~ [place] [employer] Work Phone: Reason for referral (narrative)* Diagnostic Procedure Only (Routine) - Pending Review Specialty Diagnoses / Procedures Referred By Kamaljit montana Referred To Contact [facility] Diagnoses History of cyst of breast Procedures [facility] BILATERAL DIAGNOSTIC MAMMOGRAPHY COMPUTER-AIDED DETCJ BI Kiarra Sahni APRN.CNP [address] [place] [address] [facility] [address] [place] [address] Referral ID Status Reason Start Date Expiration Date Visits Requested Visits Authorized [id number] Pending Review Auto-Generat ed Referral 3 09/11/2024 1 1 * Diagnostic Procedure Only (Routine) - Pending Review Specialty Diagnoses / Procedures Referred By Kamaljit montana Referred To Contact [facility]AG[facility] Diagnoses Pelvic pain in female Procedures US FEMALE PELVIS TRANSVAG US TRANSVAGINAL Kiarra Sahni APRN.CNP [address] [place] [address] [place] [address] Referral ID Status Reason Start Date Expiration Date Visits Requested Visits Authorized [id number] Pending Review Auto-Generat ed Referral 3 09/11/2024 1 1 [facility] for referral (narrative)No reason for referral information [facility] Work Phone: Summary Purpose Family History No Family History Records Found Relationship Condition Age at Onset Recorded Date/T ang Not Specified Cardiac disease Unknown grandmother Malignant neoplasm of breast 42 Malignant neoplasm of esophagus Unknown Kidney disorder Unknown father Chronic obstructive pulmonary disease Unk nown grandmother Chronic obstructive pulmonary disease Unk nown Cerebrovascular accident (CVA) Unknown Malignant neoplasm of uterus Unknown aunt Malignant neoplasm of lung Unknown Advance Directives No Advanced Directives Records Found Advance Directive Response Recorded Date/ Time Advance Directives No February 18, 2014 1:16pm Living Will No January 11, 2021 3:34am Power of Supervisor Securities Vault No January 11 3:34am Advance Directive Response Recorded Date/ Time Advance Directives No February 18, 2014 1:16pm Living Will No February 27, 2022 1 :26pm Power of Supervisor [employer] No February 27, 2022 1:26pm Latest Code Status on File Code Status Date Activated Date Inactivated Comments Full Code 04/19/2022 11:57 AM Advance Directive Response Recorded Date/ Time Name of Medical Power of Supervisor Securities [employer] silvina delaney May 27, 2022 10:30pm Advance Directives No February 18, 2014 1:16pm Living Will Yes May 27, 2022 10:30pm Power of Supervisor [employer] V[employer] Yes May 27 10:30pm Advance Directive Response Recorded Date/ Time Advance Directives No February 18, 2014 1:16pm Living Will Yes May 27, 2022 10:30pm Power of Supervisor [employer] V[employer] Yes May 27 10:30pm Name of Medical Power of Supervisor Securities V[employer] silvina beltre r May 27, 2022 10:30pm Advance Directive Response Recorded Date/ Time Advance Directives No February 18, 2014 1:16pm Chief Complaint and Reason for Visit Chief Complaint CONCERN FOR BRONCHIT IS Reason for Visit URI (upper respirato ry infection) Chief Complaint CONCERN FOR BRONCHIT IS SCREENING Reason for Visit URI (upper respirato ry infection) Chief Complaint CONCERN FOR BRONCHIT IS SCREENING COLD KNIFE CONIZATION,ENDOCERVICAL CURETTAGE,D&C Reason for Visit URI (upper respirato ry infection) Atypical glandular cells, favor neoplasia on cervical Pap smear Chief Complaint SCREENING COLD KNIFE CONIZATION,ENDOCERVICAL CURETTAGE,D&C cough Reason for Visit Atypical glandular c ells, favor neoplasia on cervical Pap smear Chief Complaint cough Chief Complaint Admit Date POSSIBLE SHINGLES February 25, 2025 1:47pm 6 M FU March 10, 2025 3:48p m Reason for Visit Admit Date Shingles February 25, 2025 1:47pm Dermatitis March 10, 2025 3:48p m Shingles March 10, 2025 3:48p m Anxiety and depression March 10, 2025 3: 48pm Insomnia March 10, 2025 3:48p m Chief Complaint Admit Date Really bad anxiety July 08, 2025 12:48pm Reason for Visit Admit Date Dizziness of unknown cause June 12:48pm Muscle weakness July 08, 2025 12:48pm Anxiety and depression July 08, 2 025 12:48pm Additional Source Comments INFORMATION SOURCE (unrecogn ized section and content) DATE CREATED AUTHOR 04/15/2018 [facility] DATE CREATED AUTHOR AUTHOR'S ORGANIZ ATION 11/21/2021 [facility] DATE CREATED AUTHOR AUTHOR'S ORGANIZ ATION 04/25/2022 [facility] DATE CREATED AUTHOR AUTHOR'S ORGANIZ ATION 06/15/2023 [facility] DATE CREATED AUTHOR AUTHOR'S ORGANIZ ATION 08/26/2023 [facility] DATE CREATED AUTHOR AUTHOR'S ORGANIZ ATION 07/28/2025 [facility] Goals (unrecognized section and content) Goals may be documented in a n alternate sectionGoals may be documented in an alternate sectionGoals may be documented in an alternate sectionGoals may be documented in an alternate sectionGoals may be documented in an alternate sectionGoals may be documented in an alternate sectionGoals may be documented in an alternate sectionGoals may be documented in an alternate section Care Teams (unrecognized sec tion and content) [employer]ycling Crew Supervisor Relationship Specialty Start Date End Date Don Jones MD [address] [email or web address] [address], [place] [address] PCP - General Family Medicine 04/03/22 [employer]ycling Crew Supervisor Relationship Specialty Start Date End Date Don Jones MD [address] [email or web address] [address] [place] [address] PCP - General Family Medicine 04/03/22 [employer]ycling Crew Supervisor Relationship Specialty Start Date End Date Don Jones MD PCP - General Family Medicine 10/04/13 Team Status: Active Member Role/Relationship Status Dates Dr. Don Jones MD Family Provider Active Dr. Johana Jean MD Primary Care Provider Active Team Status: Inactive Member Role/Relationship Status Dates Dr. Johana Jean MD Primary Care Provider Active Start: February 25, 2025 End: February 25, 2025 Dr. Johana Jean MD Referring Provider Active Start: February 25, 2025 End: February 25, 2025 HECTOR Donohue Attending Provider Active St art: February 25, 2025 End: February 25, 2025 Team Status: Inactive Member Role/Relationship Status Dates Dr. Johana Jean MD Primary Care Provider Active Start: March 10, 2025 End: March 10, 2025 Dr. Johana Jean MD Attending Provider Active Start: March 10, 2025 End: March 10, 2025 Dr. oJhana Jean MD Referring Provider Active Start: March 10, 2025 End: March 10, 2025 Team Status: Inactive Member Role/Relationship Status Dates Dr. Johana Jean MD Primary Care Provider Active Start: April 15, 2025 End: April 15, 2025 Dr. Rick Martinez DPM Attending Provider Active Start: April 15, 2025 End: April 15, 2025 Dr. Rick Martinez DPM Referring Provider Active Start: April 15, 2025 End: April 15, 2025 Team Status: Active Member Role/Relationship Status Dates Dr. Johana Jean MD Primary care physician Activ e Team Status: Inactive Member Role/Relationship Status Dates Dr. Johana Jean MD Primary care physician Activ e Start: April 15, 2025 End: April 15, 2025 Dr. Rick Martinez DPM Attending physician Active Start: April 15, 2025 End: April 15, 2025 Dr. Rick Martinez DPM Referring Provider Active Start: April 15, 2025 End: April 15, 2025 Team Status: Inactive Member Role/Relationship Status Dates Dr. Johana Jean MD Primary care physician Activ e Start: April 19, 2025 Dr. Keena Harvey MD Attending physician Active Start: April 19, 2025 Team Status: Inactive Member Role/Relationship Status Dates Dr. Johana Jean MD Primary care physician Activ e Start: July 08, 2025 End: July 08, 2025 Dr. Johana Jean MD Referring Provider Active Start: July 08, 2025 End: July 08, 2025 ANNIE Burden Attending physician Active Start: July 08, 2025 End: July 08, 2025 Team Status: Inactive Member Role/Relationship Status Dates Dr. Johana Jean MD Primary care physician Activ e Start: July 08, 2025 End: July 08, 2025 Dr. Johana Jean MD Attending physician Active Start: July 08, 2025 End: July 08, 2025 Dr. Johana Jean MD Referring Provider Active Start: July 08, 2025 End: July 08, 2025 Ordered Prescriptions (unrec ognized section and content) Prescription Sig Dispensed Refills Start Date End Da te acetaminophen (TYLENOL) 500 MG tablet Take 2 tablets by mouth every 6 hours as needed for Pain 60 tablet 1 04/19/2022 ondansetron (ZOFRAN-ODT) 4 MG disintegrating tablet Take 1 tablet by mouth every 8 hours as needed for Nausea or Vomiting 30 tablet 0 04/19/2022 docusate sodium (COLACE) 100 MG capsule Take 1 capsule by mouth 2 times daily as needed for Constipation 60 capsule 0 04/19/2022 05/19/2022 oxyCODONE (ROXICODONE) 5 MG immediate release tabletIndications:S/P hysterectomy Take 1 tablet by mouth every 6 hours as needed for Pain for up to 5 days. Intended supply: 3 days. Take lowest dose possible to manage pain 20 tablet 0 04/19/2022 04/24/2022 ibuprofen (ADVIL;MOTRIN) 600 MG tablet Take 1 tablet by mouth every 6 hours as needed for Pain 60 tablet 0 04/19/2022 Scheduled Active and Recently Administ ered Medications (unrecognized section and content) Medication Order 04/17/2022 04/18/2022 04/19/2022 acetaminophen (TYLENOL) tablet 1,000 mg (COMPLETED) 1,000 mg, Oral, ONCE, 1 dose, On Fri04/19/22 at 1215, Maximum dose of acetaminophen is 4000 mg from all sources in 24 hours. Do not administer if patient has taken tylenol <4 hours earlier. Do not give if contraindicated ie. 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 Recommend to repeat in 3-4 hours after initial dose if still intra-op., Pre-op (day of surgery) 1215 (Due) famotidine (PEPCID) tablet 20 mg (COMPLETED) 20 mg, Oral, ONCE, 1 dose, On Fri04/19/22 at 1215, Pre-op (day of surgery) 121 (Given - Provid er: Luisana Pace RN) gabapentin (NEURONTIN) capsule 100 mg (COMPLETED) 100 mg, Oral, ONCE, 1 dose, On Fri04/19/22 at 1215, For Age >69, or Low GFR, Pre-op (day of surgery) 121 (Given - Provid er: Luisana Pace RN) sodium chloride flush 0.9 % injection 5-40 mL 5-40 mL, IntraVENous, EVERY 12 HOURS SCHEDULED (2 times per day), First dose on Fri04/19/22 at 2100, Until Discontinued, For Line Patency: Peripheral IV = 5 mL; Midline or Central Line = 10 mL/lumen. If following IV push medication, administer flush at same rate as the IV push. Flush volume is determined by type of infusion therapy being given. For non-viscous solutions use: Peripheral IV = 5 mL Midline or Central Line = 10 mL/lumen For viscous solutions (i.e. blood components, parenteral nutrition, contrast media, or after obtaining blood sample) use: Peripheral IV = 10 mL Midline or Central Line = 20 mL/lumen, Pre-op (day of surgery) 2100 (Due) sodium chloride flush 0.9 % injection 5-40 mL 5-40 mL, IntraVENous, EVERY 12 HOURS SCHEDULED (2 times per day), First dose on Fri04/19/22 at 2100, Until Discontinued, For Line Patency: Peripheral IV = 5 mL; Midline or Central Line = 10 mL/lumen. If following IV push medication, administer flush at same rate as the IV push. Flush volume is determined by type of infusion therapy being given. For non-viscous solutions use: Peripheral IV = 5 mL Midline or Central Line = 10 mL/lumen For viscous solutions (i.e. blood components, parenteral nutrition, contrast media, or after obtaining blood sample) use: Peripheral IV = 10 mL Midline or Central Line = 20 mL/lumen, PACU only 2100 (Due) Continuous Medication Order 04/17/2022 04/18/2022 04/19/2022 lactated ringers infusion IntraVENous, at 50 mL/hr, CONTINUOUS, Starting on Fri04/19/22 at 1215, Upon admission to sameday - please start iv if patient does not have iv access. Use 500ml NS for patients on dialysis., Pre-op (day of surgery) 1215 (New Bag - Prov ider: Luisana Pace RN) lactated ringers infusion IntraVENous, at 50 mL/hr, CONTINUOUS, Starting on Fri04/19/22 at 1630, PACU only 1630 (Due) PRN Medication Order 04/17/2022 04/18/2022 04/19/2022 0.9 % sodium chloride bolus 500 mL (6.27 mL/kg), IntraVENous, at 1,000 mL/hr, Administer over 0.5 Hours, PRN, Anti-nausea, Starting on Fri04/19/22 at 1609, PACU only 0.9 % sodium chloride infusion IntraVENous, at 5-250 mL/hr, PRN, if patient receiving piggyback infusions and maintenance fluids are not ordered OR KVO fluids to protect IV site / prevent frequent line interruptions/ long duration, Starting on Fri04/19/22 at 1157, For piggyback infusion, administer at same rate as piggyback for a total of 25 mL. Enter 25 mL into dose field and piggyback rate into rate field of order. If piggyback is infusing at a rate less than 100 mL/hr, enter 25 mL into dose field and 100 mL/hr into rate field of order. For KVO fluids, enter rate of 20 mL/hr or less into rate field of order., Pre-op (day of surgery) ALPRAZolam (NIRAVAM) dissolvable tablet 0.25 mg 0.25 mg, Oral, PRN, Starting on Fri04/19/22 at 1157, Until Discontinued, Anxiety, Pre-op (day of surgery) 1215 (Given - Provid er: Luisana Pace RN) diphenhydrAMINE (BENADRYL) injection 12.5 mg 12.5 mg, IntraVENous, ONCE PRN, 1 dose, Starting on Fri04/19/22 at 1609, Until Fri04/19/22 at 2359, Itching, for use S[employer]ay and, PACU only fentaNYL (SUBLIMAZE) injection 25 mcg 25 mcg, IntraVENous, EVERY 5 MIN PRN, 3 doses, Starting on Fri04/19/22 at 1609, Until Discontinued, Pain Moderate (4-6), Phase I and Phase II- Initial therapy for moderate pain (4-6). Restricted to a 90 minute time frame starting when the patient can verbally state their pain score. If after 2 doses the pain score does not decrease by more than one point, then call the provider. If oral meds are utilized, do not return to initial therapy medications. SDS and, PACU only fentaNYL (SUBLIMAZE) injection 50 mcg 50 mcg, IntraVENous, EVERY 5 MIN PRN, 3 doses, Starting on Fri04/19/22 at 1609, Until Discontinued, Pain Severe (7-10), Phase I or Phase II- Initial therapy for severe pain (7-10). Restricted to a 90 minute time frame starting when the patient can verbally state their pain score. If after 2 doses the pain score does not decrease by more than one point, then call the provider. If oral meds are utilized, do not return to initial therapy medications. SDS and, PACU only hydrALAZINE (APRESOLINE) injection 5 mg(Linked Group 1) 5 mg, IntraVENous, EVERY 10 MIN PRN, 2 doses, Starting on Fri04/19/22 at 1609, Until Discontinued, High Blood Pressure, PRN for SBP > 160 for 2 consecutive measurements, and if one of the following conditions is met: 1) If IV labetolol is ineffective. 2) If HR is under 60. 3) If patient has heart block, COPD or asthma. If both labetalol and hydralazine ineffective, notify anesthesiologist. for use S[employer]ay and, PACU only labetalol (NORMODYNE;TRANDATE) injection 5 mg(Linked Group 1) 5 mg, IntraVENous, EVERY 10 MIN PRN, 2 doses, Starting on Fri04/19/22 at 1609, Until Discontinued, High Blood Pressure, PRN for SBP >160 for 2 consecutive measurements, if HR is 60 or greater. If beta yann is contraindicated (HR less than 60, heart block, COPD or asthma) use hydralazine IV order. for use Sameday and, PACU only lidocaine PF 1 % injection 1 mL 1 mL, IntraDERmal, ONCE PRN, 1 dose, Starting on Fri04/19/22 at 1157, Until Fri04/19/22 at 2359, IV start, Pre-op (day of surgery) LORazepam (ATIVAN) injection 0.5 mg 0.5 mg, IntraVENous, ONCE PRN, 1 dose, Starting on Fri04/19/22 at 1609, Until Fri04/19/22 at 2359, for anxiety or muscle spasm., PACU only meperidine (DEMEROL) injection 12.5 mg 12.5 mg, IntraVENous, EVERY 5 MIN PRN, 4 doses, Starting on Fri04/19/22 at 1609, Until Discontinued, Shivering, , May give every 5 minutes to max of 50mg. for use Sameday and, PACU only ondansetron (ZOFRAN) injection 4 mg (COMPLETED) 4 mg, IntraVENous, ONCE PRN, 1 dose, Starting on Fri04/19/22 at 1609, Until Fri04/19/22 at 2359, Nausea, Initial antiemetic therapy. For use sameday and, PACU only 1634 (Given - Provid er: Stephanie Torres RN) oxyCODONE (ROXICODONE) immediate release tablet 10 mg(Linked Group 2) 10 mg, Oral, PRN, 1 dose, Starting on Fri04/19/22 at 1609, Until Fri04/19/22 at 2359, Pain Severe (7-10), PHASE II, PACU only oxyCODONE (ROXICODONE) immediate release tablet 5 mg(Linked Group 2) 5 mg, Oral, PRN, 1 dose, Starting on Fri04/19/22 at 1609, Until Fri04/19/22 at 2359, Pain Moderate (4-6), PHASE II, PACU only sodium chloride flush 0.9 % injection 5-40 mL 5-40 mL, IntraVENous, PRN, Starting on Fri04/19/22 at 1157, Until Discontinued, Line Care, After every IV line use, For Line Patency: Peripheral IV = 5 mL; Midline or Central Line = 10 mL/lumen. If following IV push medication, administer flush at same rate as the IV push. Flush volume is determined by type of infusion therapy being given. For non-viscous solutions use: Peripheral IV = 5 mL Midline or Central Line = 10 mL/lumen For viscous solutions (i.e. blood components, parenteral nutrition, contrast media, or after obtaining blood sample) use: Peripheral IV = 10 mL Midline or Central Line = 20 mL/lumen, Pre-op (day of surgery) sodium chloride flush 0.9 % injection 5-40 mL 5-40 mL, IntraVENous, PRN, Starting on Fri04/19/22 at 1609, Until Discontinued, Line Care, After every IV line use, For Line Patency: Peripheral IV = 5 mL; Midline or Central Line = 10 mL/lumen. If following IV push medication, administer flush at same rate as the IV push. Flush volume is determined by type of infusion therapy being given. For non-viscous solutions use: Peripheral IV = 5 mL Midline or Central Line = 10 mL/lumen For viscous solutions (i.e. blood components, parenteral nutrition, contrast media, or after obtaining blood sample) use: Peripheral IV = 10 mL Midline or Central Line = 20 mL/lumen, PACU only Linked Groups Order Group 1: labetalol (NORMODYNE;TRANDATE) injection 5 mgJump to med 5 mg, IntraVENous, EVERY 10 MIN PRN, 2 doses, Starting on Fri04/19/22 at 1609, Until Discontinued, High Blood Pressure
PRN for SBP >160 for 2 consecutive measurements, if HR is 60 or greater. If beta yann is contraindicated (HR less than 60, heart block, COPD or asthma) use hydralazine IV order. for use Sameday and
PACU only Or hydrALAZINE (APRESOLINE) injection 5 mgJump to med 5 mg, IntraVENous, EVERY 10 MIN PRN, 2 doses, Starting on Fri04/19/22 at 1609, Until Discontinued, High Blood Pressure
PRN for SBP > 160 for 2 consecutive measurements, and if one of the following conditions is met: 1) If IV labetolol is ineffective. 2) If HR is under 60. 3) If patient has heart block, COPD or asthma. If both labetalol and hydralazine ineffective, notify anesthesiologist. for use Sameday and
PACU only Group 2: oxyCODONE (ROXICODONE) immediate release tablet 5 mgJump to med 5 mg, Oral, PRN, 1 dose, Starting on Fri04/19/22 at 1609, Until Fri04/19/22 at 2359, Pain Moderate (4-6)
PHASE II
PACU only Or oxyCODONE (ROXICODONE) immediate release tablet 10 mgJump to med 10 mg, Oral, PRN, 1 dose, Starting on Fri04/19/22 at 1609, Until Fri04/19/22 at 2359, Pain Severe (7-10)
PHASE II
PACU only Source Comments (unrecognize d section and content) In the event this informatio n is protected by the Federal Confidentiality of Alcohol and Drug Abuse Patient Records regulations: The Federal rules restrict any use of the information to criminally investigate or prosecute any alcohol or drug abuse patient.[facility] Reason for Visit (unrecogniz ed section and content) Reason Comments [employer] FOR RECORDS PERTAINING TO PATIENTS WHO ARE OR HAVE BEEN ENROLLED IN A CHEMICAL DEPENDENCY/SUBSTANCEABUSE PROGRAM, SOME INFORMATION MAY BE OMITTED. This clinical summary was aggregated from multiple sources. Caution should be exercised in using it in the provision of clinical care. This summary normalizes information from multiple sources, and as a consequence, information in this document may materially change the coding, format and clinical context of patient data. In addition, data may be omitted in some cases. CLINICAL DECISIONS SHOULD BE BASED ON THE PRIMARY CLINICAL RECORDS. [employer] provides no warranty or guarantee of the accuracy or completeness of information in this document.
== END | disposition home or self-care (01) ==
LOC: OPMRI 08:38
PROVIDERS: PCP Internal Medicine; Referring Provider Nurse Practitioner Family; Visit Provider Nurse Practitioner Family
DX: M62.81 Muscle weakness (generalized) (principal); R42 Dizziness and giddiness
CPT/HCPCS: 70553; A9575; A4216